=== PATIENT | male | born 1950 | race Caucasian/White ===

== ENCOUNTER 2017-10-19 11:51 | Day surgery (SDC) | payer MEDICARE, BC ==
[2017-10-09 15:52] VITALS: BMI 25.0
[~2017-10-19 11:51] MED LIST: DEXAMETHASONE SOD PHOSPHATE 10 MG/ML 1 ML VIAL IV ONE; HYDROmorphone 0.5 MG/0.5 ML SYRINGE IVP PRN; LACTATED RINGERS 1,000 ML IV SCH; LIDOCAINE 1% 20 ML VIAL (10MG/ML) FOR IV START INTRADERMA PRN; ONDANSETRON 4 MG/2 ML VIAL IVP ONE; ceFAZolin IN SWFI 2 GM/20 ML SYRINGE IVP ONE
[2017-10-19 12:17] VITALS: TEMP 97.6
[2017-10-19] MEDS ORDERED: MIDAZOLAM 2 MG/2 ML VIAL IV ONE (12:55)
[2017-10-19] MEDS ORDERED: fentaNYL (PF) 50 MCG/ML 2 ML AMP ONE (13:25)
[2017-10-19] MEDS ORDERED: PROPOFOL 10 MG/ML 20 ML VIAL IV ONE (13:25)
[2017-10-19] MEDS ORDERED: ROPIVACAINE 5 MG/ML 30 ML VIAL ONE (13:25)
[2017-10-19] MEDS ORDERED: LIDOCAINE 1% INJ 10MG/ML (20 ML MDV) ONE (13:25)
[2017-10-19] MEDS ORDERED: MIDAZOLAM 2 MG/2 ML VIAL ONE (13:25)
[2017-10-19] MEDS ORDERED: diphenhydrAMINE 50 MG/ML 1 ML VIAL ONE (13:25)
[2017-10-19] MEDS ORDERED: LIDOCAINE 2%-EPI 1:100,000 20 ML VIAL ONE (13:25)
[2017-10-19] MEDS ORDERED: CLINDAMYCIN 600 MG in SODIUM CHLORIDE 0.9% 1,000 ML IRRIGATION ONE (13:41)
[2017-10-19 15:00] VITALS: RESP 18
[2017-10-19 15:03] VITALS: BP 154/83; PULSE 100
--- NOTE | 2017-10-19 20:24 | OP ---
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 PROCEDURE: Elastic MP arthroplasties, MP joints, right index finger and right middle finger. Gross pathology size 5 fit best with the middle finger and a size 4 for the index finger. These were Servin type silastic implants. The patient was taken to the operative suite and given IV sedation and I did a digital block with a combination of Xylocaine and Marcaine both without epinephrine. The hand and arm were then prepped and draped in the usual manner. They were elevated and exsanguinated. Cuff was deflated to 250 mmHg. A longitudinal C shaped incision was made over the proximal MP joint. Skin flap was dissected off the peritenon and the extensor mechanism. Electrocautery was used for hemostasis. A longitudinal incision was made through the extensor tendon exposing the periosteum and the capsule of the joint. These were also opened and collateral ligaments were released. The joint was visualized and appropriate location for the resection of the head of the proximal phalanx was determined. This was then accomplished with an oscillating saw. Rongeur was used to smooth the surfaces. An awl was used to then open the intramedullary canals both proximal and middle phalanges. A Servin carlos was used initially to enlarge the intramedullary canals and then the appropriate size instruments were used from the arthroplasty set to prepare the canals for the prosthesis. Trial prosthesis was then used and the above size was noted to fit satisfactorily. The wound was then irrigated with antibiotic solution. The real prosthesis was inserted with no touch technique. The extensor mechanism was then closed with PDS suture. The finger was noted to be satisfactorily stable and had a satisfactory passive range of motion. The tourniquet was then released. Hemostasis was acquired with pressure and electrocautery. Skin closed with 5-0 Nylon suture. Soft bulky dressing was then applied. The patient was taken to the recovery room in satisfactory condition. MMODL / IJN: [id number] /
== END 2017-10-19 15:15 | disposition home or self-care (01) ==
LOC: OR 11:51
PROVIDERS: ATTEND Orthopaedic Surgery Hand Surgery
DX: M19.041 Primary osteoarthritis, right hand (principal); E78.5 Hyperlipidemia, unspecified; Z79.82 Long term (current) use of aspirin; Z79.899 Other long term (current) drug therapy; Z88.6 Allergy status to analgesic agent; Z88.5 Allergy status to narcotic agent; Z88.0 Allergy status to penicillin
CPT/HCPCS: 26531 ×2; C1713; J2250; J1200; J1100; J2405; J2001; J3010; J2795; J2704; J0690

== ENCOUNTER → 2018-10-04 | Outpatient (CLI) | payer MEDICARE, BC ==
[2018-10-04 11:29] LABS: HCT 45.3 % (39.0-53.0); HGB 14.7 gm/dL (13.0-17.5); MCH 32.4 pg (25.0-35.0); MCHC 32.3 g/dL (31.0-37.0); MCV 100.3 fL (80.0-100.0); Macrocytosis Slight; Mean Platelet Volume 8.1; Platelet Count 187 k/uL (150-450); RBC 4.52 m/uL (4.30-5.90); RDW 14.5 % (11.5-15.5)
[2018-10-04 14:16] LABS: Erythrocyte Sedimentation Rate 9 mm/hr (0-15)
[2018-10-04 17:51] LABS: C Reactive Protein <0.4 mg/dL (0.0-0.8); Uric Acid 7.3 mg/dL (3.7-8.7)
== END | disposition home or self-care (01) ==
LOC: LABWHC1 09:42
PROVIDERS: ATTEND Orthopaedic Surgery
DX: M79.672 Pain in left foot (principal); M10.9 Gout, unspecified
CPT/HCPCS: 36415; 83520; 84550; 85027; 85652; 86140

== ENCOUNTER 2018-11-29 06:24 | Day surgery (SDC) | payer MEDICARE, BC ==
[2018-11-26 08:52] VITALS: BMI 25.0
[~2018-11-29 06:24] MED LIST changes: -HYDROmorphone 0.5 MG/0.5 ML SYRINGE IVP PRN; -ONDANSETRON 4 MG/2 ML VIAL IVP ONE; +Pre Op ABX Message 1 EACH MISC MISCELLANE ONE; -ceFAZolin IN SWFI 2 GM/20 ML SYRINGE IVP ONE; +fentaNYL (PF) 50 MCG/ML 2 ML AMP IV PRN
[2018-11-29] MEDS ORDERED: ONDANSETRON 4 MG/2 ML VIAL IVP ONE (07:05)
[2018-11-29] MEDS: MIDAZOLAM 2 MG/2 ML VIAL IV PRN ×2 (07:09→07:15)
[2018-11-29] MEDS ORDERED: ROPIVACAINE 5 MG/ML 30 ML VIAL ONE (07:27)
[2018-11-29] MEDS ORDERED: LIDOCAINE 1% INJ 10MG/ML (20 ML MDV) ONE (07:27)
[2018-11-29] MEDS ORDERED: PROPOFOL 10 MG/ML 20 ML VIAL IV ONE (07:27)
[2018-11-29] MEDS ORDERED: DEXAMETHASONE SOD PHOSPHATE 4 MG/ML 1 ML VIAL ONE (07:27)
[2018-11-29] MEDS ORDERED: ceFAZolin 1,000 MG VIAL IVPB ONE (07:35)
[2018-11-29] MEDS ORDERED: LIDOCAINE 2% INJ 20 MG/ML SQ ONE ×2 (07:40)
[2018-11-29] MEDS ORDERED: BUPIVACAINE (PF) 0.5% 30 ML VIAL SQ ONE ×2 (07:40)
[2018-11-29] MEDS ORDERED: LACTATED RINGERS 1,000 ML IV ONE (08:21)
[2018-11-29 08:31] VITALS: TEMP 97.4
[2018-11-29 09:51] VITALS: BP 143/49; PULSE 66; RESP 18
--- NOTE | 2018-11-30 07:18 | P.ANPRN ---
Procedure Note - Anesthesia - Nerve Block Performed Left Infraclavicular Single Time Out Performed: Yes Date of Procedure: 11/29/18 Procedure Start Time: Procedure Stop Time: Location of Patient Procedure: PreOp Indication: Acute Post-Operative Pain, Requested by Surgeon Sedation Type: Sedate with meaningful contact maintained Preparation: Sterile Prep Position: Supine Needle Types: Pajunk Needle Gauge: 21 Ultrasound used to visualize needle placement: Yes Ultrasound used to observe medication spread: Yes Blood Aspirated: No Pain Paresthesia on Injection Noted: No Resistance on Injection: Normal Image Stored and Saved: Yes Events: Uneventful and Well Tolerated (ropi .5% 20cc plus dexamethasone 4mg)
--- NOTE | 2018-11-30 10:33 | OP ---
OPERATIVE REPORT DATE OF SURGERY: 11/29/2018 PREOPERATIVE DIAGNOSIS: MP joint osteoarthritis, left index finger. POSTOPERATIVE DIAGNOSIS: MP joint osteoarthritis, left index finger. PROCEDURE: Metacarpal pharyngeal joint silastic arthroplasty left index finger. ASSISTED LIVING NURSING DIRECTOR: Val Gonsales NP IMPLANT: Size 6 [employer] silastic prosthesis was used without grommets. PROCEDURE: A 68-year-old man was taken to the operative suite and given general anesthetic. I supplemented this with a local injection of combination Xylocaine and Marcaine both without epinephrine. The hand was prepped and draped in the usual manner. His arm was elevated, exsanguinated and cuff was inflated to 250 mmHg. A transverse incision was made over the metacarpal head of the left index finger. Dissection taken through skin and subcutaneous tissue under 4.5 loupe magnification. A longitudinal incision was made on the ulnar aspect of the MP joint and the ulnar intrinsics were released. The extensor mechanism was then reflected radially over the capsule, exposing the capsule where a longitudinal incision was made. A partial collateral ligament release was performed exposing the metacarpal head. An oscillating saw was then used to create an osteotomy. Most of the bone resection was kept distal to the collateral ligament insertion. An awl was then used to begin the intramedullary canal of both the proximal phalanx and the metacarpal. Subsequent larger rasps were then used to enlarge the canals until a size 6 prosthesis appeared to fit most satisfactorily. Trial prosthesis was inserted and noted to fit securely. The trial prosthesis was removed and the wound was thoroughly irrigated with antibiotic solution. The implant was then put into place with a no-touch technique. The radial collateral ligament was reinforced with the drill hole and suture through the radial aspect of the distal metacarpal. The capsule was then closed with 4- 0 PDS suture. The extensor mechanism fell into place naturally with no further reconstruction. The wound was thoroughly irrigated. Tourniquet was released. Hemostasis was acquired with electrocautery. Soft bulky dressing was then allowed which supported the index finger in a radial posture and allowed for early range of motion. The patient was then taken recovery room in satisfactory condition. MMODL / IJN: [id number] / MTDD
== END 2018-11-29 10:04 | disposition home or self-care (01) ==
LOC: OR 06:24
PROVIDERS: ATTEND Orthopaedic Surgery Hand Surgery
DX: M19.042 Primary osteoarthritis, left hand (principal); M19.041 Primary osteoarthritis, right hand; E78.5 Hyperlipidemia, unspecified; Z83.3 Family history of diabetes mellitus; Z82.49 Family history of ischemic heart disease and other diseases of the circulatory system; Z87.891 Personal history of nicotine dependence; Z90.49 Acquired absence of other specified parts of digestive tract; Z79.82 Long term (current) use of aspirin; Z79.899 Other long term (current) drug therapy; Z88.6 Allergy status to analgesic agent; Z88.5 Allergy status to narcotic agent; Z88.0 Allergy status to penicillin
CPT/HCPCS: 26536; 64415; 76942; J2001 ×2; J2250; J1100 ×2; J2405; J0690; J2795; J2704; 64413

== ENCOUNTER 2020-06-29 07:42 | Day surgery (SDC) | payer MEDICARE ==
[2020-06-27 11:14] VITALS: BMI 19.9
[~2020-06-29 07:42] MED LIST changes: -DEXAMETHASONE SOD PHOSPHATE 10 MG/ML 1 ML VIAL IV ONE; +DEXAMETHASONE SOD PHOSPHATE 4 MG/ML 1 ML VIAL IV ONE; -LIDOCAINE 1% 20 ML VIAL (10MG/ML) FOR IV START INTRADERMA PRN; +MIDAZOLAM 2 MG/2 ML VIAL IV PRN; +ONDANSETRON 4 MG/2 ML VIAL IVP ONE; -fentaNYL (PF) 50 MCG/ML 2 ML AMP IV PRN
[2020-06-29] MEDS ORDERED: fentaNYL (PF) 50 MCG/ML 2 ML AMP IV ONE (08:37)
[2020-06-29] MEDS ORDERED: MIDAZOLAM 2 MG/2 ML VIAL IV ONE (08:37)
--- NOTE | 2020-06-29 08:52 | P.ANPRN ---
Procedure Note - Anesthesia - Nerve Block Performed Right Popliteal Single Time Out Performed: Yes Date of Procedure: 06/29/20 Procedure Start Time: 08:36 Procedure Stop Time: 08:42 Location of Patient: PreOp Indication: Requested by Surgeon Specifically requested for management of pain by DrFidelia: Lincoln Tolliver Sedation Type: Sedate with meaningful contact maintained Preparation: Sterile Prep Position: Left Lateral Needle Types: Pajunk Needle Gauge: 21 Ultrasound used to visualize needle placement: Yes Ultrasound used to observe medication spread: Yes Injectate: 0.5% Ropivacaine (see comment for volume) (15 ml plus 0.9%NS 5 ml plus dexamethason 4 mg) Blood Aspirated: No Pain Paresthesia on Injection Noted: No Resistance on Injection: Normal Image Stored and Saved: Yes Events: Uneventful and Well Tolerated
--- NOTE | 2020-06-29 08:54 | P.ANPRN ---
Procedure Note - Anesthesia - Nerve Block Performed Right Adductor Canal Single Time Out Performed: Yes Date of Procedure: 06/29/20 Procedure Start Time: 08:43 Procedure Stop Time: 08:50 Location of Patient: PreOp Indication: Requested by Surgeon Specifically requested for management of pain by DrFidelia: Lincoln Tolliver Sedation Type: Sedate with meaningful contact maintained Preparation: Sterile Prep Position: Supine Needle Types: Pajunk Needle Gauge: 21 Ultrasound used to visualize needle placement: Yes Ultrasound used to observe medication spread: Yes Injectate: 0.5% Ropivacaine (see comment for volume) (15 ml plus 0,9% NS 5 ml plus dexamethason 4 mg) Blood Aspirated: No Pain Paresthesia on Injection Noted: No Resistance on Injection: Normal Image Stored and Saved: Yes Events: Uneventful and Well Tolerated
[2020-06-29] MEDS ORDERED: LIDOCAINE 1% INJ 10MG/ML (20 ML MDV) ONE (09:05)
[2020-06-29] MEDS ORDERED: DEXAMETHASONE SOD PHOSPHATE 4 MG/ML 1 ML VIAL ONE (09:05)
[2020-06-29] MEDS ORDERED: fentaNYL (PF) 50 MCG/ML 2 ML AMP ONE (09:05)
[2020-06-29] MEDS ORDERED: ePHEDrine SULFATE/0.9% NACL/PF 50 MG/5 ML SYRINGE IV ONE (09:05)
[2020-06-29] MEDS ORDERED: PROPOFOL 10 MG/ML 20 ML VIAL IV ONE (09:05)
[2020-06-29] MEDS ORDERED: ROPIVACAINE 5 MG/ML 30 ML VIAL ONE (09:05)
[2020-06-29] MEDS ORDERED: MIDAZOLAM 2 MG/2 ML VIAL ONE (09:05)
[2020-06-29] MEDS ORDERED: SODIUM CHLORIDE 0.9% 100 ML with CLINDAMYCIN 600 MG IV ONE ×2 (09:20)
--- NOTE | 2020-06-29 11:27 | FL ---
Fluoroscopy History: SCREW PLACEMENT 24 SEC FL
[2020-06-29 11:40] VITALS: TEMP 97.6
[2020-06-29] MEDS: HYDROmorphone 0.5 MG/0.5 ML SYRINGE IVP PRN ×2 (11:40→11:48)
[2020-06-29] MEDS ORDERED: LACTATED RINGERS 1,000 ML IV ONE (11:52)
[2020-06-29 12:05] VITALS: RESP 16
[2020-06-29 12:53] VITALS: BP 160/89; PULSE 89
--- NOTE | 2020-07-05 09:58 | OP ---
OPERATIVE REPORT DATE OF SURGERY: June 29, 2020. PREOPERATIVE DIAGNOSES: 1. Hallux valgus, right foot. 2. Tailor's bunion, right foot. POSTOPERATIVE DIAGNOSES: 1. Hallux valgus, right foot. 2. Tailor's bunion, right foot. PROCEDURE: 1. Modified Lapidus, right foot. 2. Partial excision 5th metatarsal head, right foot. SURGEON: Lincoln Tolliver DPM. ANESTHESIA: General with preoperative nerve block. HEMOSTASIS: Right mid calf tourniquet at 250 mmHg. ESTIMATED BLOOD LOSS: Minimal. MATERIALS: Lapiplasty dorsal straight plate and medial U plate with associated 12 and 14 mm locking screws. INJECTABLES: None. SPECIMENS: None. COMPLICATIONS: None. OPERATIVE REPORT: Operative report is as follows: Prior to the patient being brought to the operating room, Anesthesia administered a nerve block in the right lower extremity under ultrasonic guidance and mild sedation. The patient was then brought into the operating room, placed on the table in supine position. Timeout was taken to confirm correct patient identifiers, correct site of surgery and correct procedure. When the room was in agreement, the patient was placed under general anesthetic. A well-padded tourniquet was placed on the right midcalf and then the right leg was prepped and draped in usual manner. The right leg was exsanguinated. The tourniquet inflated to 250 mmHg. Attention was first directed over the fifth metatarsophalangeal joint where a dorsal lateral incision was made between the long extensor tendon and neurovascular structures. It was deepened down to the subcutaneous tissue careful to identify, avoid and retract any neurovascular structures and cauterize any bleeding vessels. Dissection was then continued bluntly down to the level of the capsule which was incised lateral to the extensor tendon reflected to expose the lateral aspect of the fifth metatarsal head. A sagittal saw was used to resect the prominence on the lateral side of the fifth metatarsal head and then all the roughened edges of bone were smooth. There was some thickening of the capsule between the subcu and the joint and that was all thinned and then the wound was irrigated thoroughly with antibiotic saline. The capsule was closed with 2-0 Vicryl. Subcutaneous closure done with 4-0 Monocryl. Skin closure done with 3-0 Stratafix in a running subcuticular manner. Then, attention was directed at the medial aspect of the first metatarsophalangeal joint where a linear incision was made between the dorsal and plantar neurovascular structures, deepened down to the subcutaneous tissue careful to identify, avoid and retract any neurovascular structures and cauterize any bleeding vessels. Dissection was then carried down to the level of joint capsule. Two semi-elliptical converging incisions were made at the medial aspect of the joint capsule with the interposed section of capsule removed which would help facilitate sesamoid correction upon closure. The capsule was reflected off the medial aspect of the first metatarsal head. A sagittal saw was then used to resect the enlargement of the first metatarsal head on the medial aspect and then all the roughened edges were planed and smoothed and then the sesamoid apparatus was distracted plantarly. Lateral sesamoid collateral ligament transected and lateral capsulotomy performed. Attention was then directed on the dorsal aspect of the first tarsometatarsal joint where a 6 cm incision was made between the neurovascular structures and the extensor hallucis longus. This was deepened down to the subcutaneous tissue careful to identify, avoid and retract any neurovascular structures and cauterize any bleeding vessels. Blunt dissection was then carried down to the periosteum and capsule over the first tarsometatarsal joint. An incision was made medial to the long extensor tendon and then subperiosteal dissection was performed to expose the first tarsometatarsal joint and create a pocket on the lateral side of the base of the first metatarsal. A sagittal saw was inserted to plane the joint surfaces and allow for better motion to correct the frontal plane deformity. Wire was then placed in the base of the first metatarsal and used as a joystick to de- rotate the deformity. Another small incision was made on the lateral aspect of the second metatarsal that was deepened so that the lateral side of the metatarsal was exposed. The fulcrum was then placed in the pocket created on the base of the first metatarsal and then the reduction clamp was placed on the lateral side of the second metatarsal shaft as well as the medial flare of the base of the first metatarsal and then the clamp was advanced to correct the intermetatarsal angle while simultaneously de- rotating the frontal plane deformity with a joystick. Under fluoroscopic visualization, another correction was advanced until completed. Visually there is correction of the intermetatarsal angle and proper alignment of the sesamoids on fluoroscopy and direct visualization showed gapping of the medial first tarsometatarsal joint, which is appropriate. Then the joint seeker was inserted. The cut guide inserted over the joint seeker and then cut guide was aligned on x-ray and then fixated with K- wires so that that did not move once it was placed properly. The saw was then inserted into the cut guide and the joint surfaces of the base of the first metatarsal and distal surface of the medial cuneiform were transected. The locking wire was removed leaving the other [address] The cut guide was removed. The distractor was then inserted and opened so that the cut pieces of bone could be completely removed. Once that was completed, the wound was irrigated thoroughly with antibiotic saline and then a 2 mm drill bit was used to fenestrate both the surfaces. Then with the first MPJ dorsiflexed, the distractor was then converted to compressor and then the arthrodesis was then compressed. Visually, there appeared to be good bony contact throughout and on fluoroscopy, there was good bony contact throughout and on the lateral surface there was no abnormal gapping on the plantar side. A threaded olive wire was then used to fixate the arthrodesis site. Then the medial plate was positioned and temporarily fixated and checked under fluoroscopy for proper positioning. Once properly aligned, the drill holes were made through the guide and then locking screws were then placed. The olive wire was then repositioned to allow for further compression and also to avoid the dorsal plate and then the dorsal straight plate was positioned and adjusted directly under fluoroscopy until it was in proper alignment and then temporarily fixated. The drill holes were then made through the guides and locking screws placed through the dorsal straight plate. At that point, the distractor compressor was removed as well as the pins and the threaded olive wire. Final fluoroscopic images showed good bony contact at the arthrodesis site with correction of the intermetatarsal angle and proper alignment of the sesamoid apparatus. The wounds were then thoroughly irrigated with antibiotic saline. The dorsal wound was closed first with 2-0 Vicryl for the deep tissues, subcutaneous closure done with 4-0 Monocryl, skin closure done with 3-0 Stratafix in a running subcuticular manner and then with the great toe held in a corrected position, the first MPJ joint capsule was closed with 0 Vicryl, subcutaneous closure done with 4-0 Monocryl, skin closure done with 3-0 Stratafix in a running subcuticular manner. Dermal glue was applied to all the incisions including the small incision of the second metatarsal and then Steri-Strips were placed across the incisions and a dry sterile dressing. The tourniquet was released and capillary refill returned to all digits on the right foot. The patient was placed in a fracture boot with the ankle in neutral position. Anesthesia was reversed. He was taken to recovery with vital signs stable. MMODL / IJN: [id number] / MIKE
== END 2020-06-29 13:33 | disposition home or self-care (01) ==
LOC: OR 07:42
PROVIDERS: ATTEND Podiatrist
DX: M21.621 Bunionette of right foot (principal); M20.11 Hallux valgus (acquired), right foot; M19.90 Unspecified osteoarthritis, unspecified site; E78.5 Hyperlipidemia, unspecified; Z79.899 Other long term (current) drug therapy; Z88.6 Allergy status to analgesic agent; Z88.0 Allergy status to penicillin; Z83.3 Family history of diabetes mellitus; Z82.49 Family history of ischemic heart disease and other diseases of the circulatory system; Z87.891 Personal history of nicotine dependence
CPT/HCPCS: 64447; 64415; 76942; 73620; 28297; 28104; C1713; J2250; J1100; J2405; J2001; J3010; J2795; J2704; J1170

== ENCOUNTER → 2020-12-14 | Outpatient (CLI) | payer MEDICARE ==
[2020-12-14 09:22] LABS: Appearance,Urine Clear (Clear); Bilirubin,Urine Negative (Negative); Blood,Urine Negative (Negative); Color,Urine Yellow; Glucose,Urine (UA) Negative (Negative); Ketones,Urine Negative (Negative); Leukocyte Esterase,Urine Negative (Negative); Nitrite,Urine Negative (Negative); PH, Urine 6.5 (5.0-8.0); Protein,Urine Negative (Negative); Specific Gravity,Urine 1.007 (1.001-1.035); Urobilinogen,Urine <2.0 mg/dL (<2.0)
[2020-12-14 09:23] LABS: HCT 42.3 % (39.0-53.0); HGB 13.9 gm/dL (13.0-17.5); MCH 33.7 pg (25.0-35.0); MCHC 32.8 g/dL (31.0-37.0); MCV 102.8 fL (80.0-100.0); Macrocytosis Slight; Mean Platelet Volume 8.1; Platelet Count 199 k/uL (150-450); RBC 4.12 m/uL (4.30-5.90); RDW 12.7 % (11.5-15.5); WBC 2.7 k/uL (3.8-10.6)
[2020-12-14 09:41] LABS: African American GFR (CKD) >90 (>60 ml/min/1.73 sqM); Anion Gap 7 mmol/L; Blood Urea Nitrogen 15 mg/dL (9-20); Calcium 9.3 mg/dL (8.4-10.2); Carbon Dioxide 27 mmol/L (22-30); Chloride 105 mmol/L (98-107); Glucose 105 mg/dL (74-99); Non-African American GFR(CKD) 83 (>60 ml/min/1.73 sqM); Potassium 4.2 mmol/L (3.5-5.1); Sodium 139 mmol/L (137-145)
[2020-12-14 09:52] LABS: INR 0.9 (<1.2); Partial Thromboplastin Time 23.6 sec (22.0-30.0); Prothrombin Time 9.9 sec (9.0-12.0)
--- NOTE | 2020-12-14 09:56 | XR ---
EXAMINATION TYPE: XR chest 2V DATE OF EXAM: 12/14/2020 COMPARISON: NONE HISTORY: Shortness of breath TECHNIQUE: Frontal and lateral views of the chest are obtained. FINDINGS: Scattered senescent parenchymal changes noted. Hyperinflation compatible with COPD. No evidence for infiltrate. No evidence for atelectasis. Heart size is stable. Mediastinal structures are stable and grossly unremarkable. No evidence for hilar prominence. Degenerative changes dorsal spine. IMPRESSION: 1. No evidence for acute pulmonary disease.
[2020-12-14 13:48] LABS: Band Neutrophils % 1 %; Eosinophils # (M) 0.16 k/uL (0-0.7); Lymphocytes # (M) 0.97 k/uL (1.0-4.8); Monocytes # (M) 0.41 k/uL (0-1.0); Neutrophils % (M) 42 %; Nucleated Red Blood Cells 0 /100 WBC (0-0); Total Cells Counted 100
== END | disposition home or self-care (01) ==
LOC: LABPAT 08:28
PROVIDERS: ATTEND Orthopaedic Surgery Orthopaedic Surgery of the Spine
DX: Z01.818 Encounter for other preprocedural examination (principal); M48.00 Spinal stenosis, site unspecified; M54.10 Radiculopathy, site unspecified
CPT/HCPCS: 36415; 71046; 80048; 81003; 85025; 85610; 85730; 87070

== ENCOUNTER 2021-04-01 11:27 | Day surgery (SDC) | payer MEDICARE ==
[2021-03-27 10:49] VITALS: BMI 23.7
[~2021-04-01 11:27] MED LIST changes: -DEXAMETHASONE SOD PHOSPHATE 4 MG/ML 1 ML VIAL IV ONE; +LIDOCAINE 1% (10MG/ML) FOR IV START INTRADERMA PRN; -MIDAZOLAM 2 MG/2 ML VIAL IV PRN; -ONDANSETRON 4 MG/2 ML VIAL IVP ONE; -Pre Op ABX Message 1 EACH MISC MISCELLANE ONE
[2021-04-01 11:57] VITALS: TEMP 97.8
[2021-04-01] MEDS ORDERED: LACTATED RINGERS 1,000 ML IV ONE (11:57)
[2021-04-01] MEDS ORDERED: LIDOCAINE 1% INJ 10MG/ML (20 ML MDV) ONE (12:21)
[2021-04-01] MEDS ORDERED: PROPOFOL 10 MG/ML 20 ML VIAL IV ONE (12:21)
[2021-04-01] MEDS ORDERED: IV FLUID CONTINUATION 1,000 ML IV ONE (12:40)
[2021-04-01 12:55] LABS: HCT 42.8 % (39.0-53.0); HGB 14.3 gm/dL (13.0-17.5); MCH 34.6 pg (25.0-35.0); MCHC 33.4 g/dL (31.0-37.0); MCV 103.7 fL (80.0-100.0); Macrocytosis Slight; Mean Platelet Volume 8.9; Platelet Count 149 k/uL (150-450); RBC 4.13 m/uL (4.30-5.90); RDW 13.3 % (11.5-15.5); WBC 2.1 k/uL (3.8-10.6)
[2021-04-01 13:00] VITALS: RESP 18
--- NOTE | 2021-04-01 13:06 | PCN ---
PROCEDURE NOTE DATE OF SERVICE: April 01, 2021. PROCEDURE: Bone marrow aspirate and biopsy. INDICATION: Pancytopenia. DESCRIPTION OF PROCEDURE: After obtaining informed consent from the patient, the procedure was performed in the endoscopy suite under general anesthesia performed by anesthesia team. The patient was put in left lateral decubitus position. The right posterior superior iliac crest was localized. Skin was prepped with ChloraPrep. All sterile procedures were followed. 2 mL of 2% Xylocaine was used for local anesthetic. Monoject needle was inserted. 15 mL aspirate was obtained and about 1 cm core biopsy was obtained without any difficulties. Pressure applied afterwards. There was negligible blood loss. The patient tolerated the procedure very well. There was no immediate complication. MMODL / IJN: [id number] /
[2021-04-01 13:17] VITALS: BP 145/78; PULSE 80
[2021-04-01 13:28] LABS: Eosinophils # (M) 0.06 k/uL (0-0.7); Monocytes # (M) 0.42 k/uL (0-1.0); Neutrophils # (M) 0.71 k/uL (1.3-7.7); Neutrophils % (M) 34 %; Nucleated Red Blood Cells 0 /100 WBC (0-0); Total Cells Counted 100
== END 2021-04-01 13:25 | disposition home or self-care (01) ==
LOC: OR 11:27
PROVIDERS: ATTEND Internal Medicine Hematology & Oncology
DX: D70.8 Other neutropenia (principal); D61.818 Other pancytopenia; E78.5 Hyperlipidemia, unspecified; Z98.890 Other specified postprocedural states; Z80.8 Family history of malignant neoplasm of other organs or systems; Z83.2 Family history of diseases of the blood and blood-forming organs and certain disorders involving the immune mechanism; Z90.49 Acquired absence of other specified parts of digestive tract; Z79.899 Other long term (current) drug therapy; Z88.0 Allergy status to penicillin; Z91.09 Other allergy status, other than to drugs and biological substances
CPT/HCPCS: 85025; 85045; 38222; J2001; J2704

== ENCOUNTER → 2021-05-31 | Outpatient (CLI) | payer MEDICARE ==
--- NOTE | 2021-05-31 09:28 | XR ---
EXAMINATION TYPE: XR chest 2V DATE OF EXAM: 05/31/2021 COMPARISON: Chest x-ray December 14, 2020 HISTORY: Presurgical TECHNIQUE: Frontal and lateral views of the chest are obtained. FINDINGS: There is no suspicious focal air space opacity, pleural effusion, or pneumothorax seen. T he cardiac silhouette size is stable and within normal limits with atherosclerotic change in the aort ic knob. The osseous structures are intact. IMPRESSION: No acute process. No significant change from prior.
[2021-05-31 09:43] LABS: Appearance,Urine Clear (Clear); Bilirubin,Urine Negative (Negative); Blood,Urine Negative (Negative); Color,Urine Yellow; Glucose,Urine (UA) Negative (Negative); Ketones,Urine Negative (Negative); Leukocyte Esterase,Urine Negative (Negative); Nitrite,Urine Negative (Negative); Protein,Urine Negative (Negative); Specific Gravity,Urine 1.015 (1.001-1.035); Urobilinogen,Urine <2.0 mg/dL (<2.0)
[2021-05-31 10:05] LABS: INR 0.9 (<1.2); Partial Thromboplastin Time 24.8 sec (22.0-30.0); Prothrombin Time 10.2 sec (9.0-12.0)
[2021-05-31 14:18] LABS: HCT 39.6 % (39.6-50.0); HGB 12.7 g/dL (13.0-17.0); MCH 33.6 pg (27.0-32.0); MCHC 32.1 g/dL (32.0-37.0); MCV 104.8 fL (80.0-97.0); Mean Platelet Volume 11.5 fL (9.5-12.2); NRBC Per 100 WBC 0 /100 WBCS (0.0-0.0); Platelet Count 124 X 10*3/uL (140-440); RBC 3.78 X 10*6/uL (4.40-5.60); RDW 13.6 % (11.5-14.5)
[2021-05-31 14:36] LABS: African American GFR (CKD) 100.3 (60.0-200.0); Anion Gap 10.6 mmol/L (10.00-18.00); BUN/Creat Ratio 15.83 Ratio (12.00-20.00); Blood Urea Nitrogen 13.9 mg/dL (9.0-27.0); Calcium 8.4 mg/dL (8.7-10.3); Carbon Dioxide 24.5 mmol/L (20.0-27.5); Non-African American GFR(CKD) 86.5 (60.0-200.0); Potassium 4.1 mmol/L (3.5-5.5)
[2021-05-31 14:41] LABS: Basophils # (A) 0.01 X 10*3/uL (0.00-0.10); Basophils % (A) 0.5 %; Eosinophils # (A) 0.03 X 10*3/uL (0.04-0.35); Eosinophils % (A) 1.4 %; Immature Grans, Automated 0.5 %; Lymphocytes # (A) 1.03 X 10*3/uL (0.90-5.00); Lymphocytes % (A) 46.8 %; Monocytes % (A) 27.3 %; Neutrophils # (A) 0.52 X 10*3/uL (1.80-7.70); Neutrophils % (A) 23.5 %; RBC Morphology NORMAL
== END | disposition home or self-care (01) ==
LOC: LABPAT 08:51
PROVIDERS: ATTEND Orthopaedic Surgery Orthopaedic Surgery of the Spine
DX: Z01.812 Encounter for preprocedural laboratory examination (principal); M48.061 Spinal stenosis, lumbar region without neurogenic claudication
CPT/HCPCS: 36415; 71046; 80048; 81003; 85025; 85610; 85730; 87070

== ENCOUNTER 2021-06-10 06:17 | Inpatient (IN) | payer MEDICARE ==
[2021-06-04 10:18] VITALS: BMI 23.7
[~2021-06-10 06:17] MED LIST changes: -LACTATED RINGERS 1,000 ML IV SCH; +ONDANSETRON 4 MG/2 ML VIAL IVP ONE; +ceFAZolin 1,000 MG in SODIUM CHLORIDE 0.9% IRRIGATIO 1,000 ML IRRIGATION PRN
[2021-06-10] MEDS: LACTATED RINGERS 1,000 ML IV SCH (07:09)
[2021-06-10] MEDS: MIDAZOLAM 2 MG/2 ML VIAL IVP ONE ×2 (07:26→07:30)
[2021-06-10] MEDS ORDERED: HEPARIN SODIUM,PORCINE 10,000 UNIT/ML 1 ML VIAL ONE (07:39)
[2021-06-10] MEDS ORDERED: fentaNYL (PF) 50 MCG/ML 2 ML AMP ONE (07:39)
[2021-06-10] MEDS ORDERED: ceFAZolin 1,000 MG VIAL ONE (07:39)
[2021-06-10] MEDS ORDERED: ROCURONIUM 10 MG/ML (5 ML VIAL) IV ONE (07:39)
[2021-06-10] MEDS ORDERED: SUCCINYLCHOLINE CHLORIDE 100 MG/5 ML SYR IV ONE (07:39)
[2021-06-10] MEDS ORDERED: NEOSTIGMINE 1 MG/ML 10 ML VIAL ONE (07:39)
[2021-06-10] MEDS ORDERED: HYDROmorphone (PF) 1 MG/ML ONE (07:39)
[2021-06-10] MEDS ORDERED: PROPOFOL 10 MG/ML 20 ML VIAL IV ONE (07:39)
[2021-06-10] MEDS ORDERED: GLYCOPYRROLATE 0.2 MG/ML 2 ML VIAL ONE (07:39)
[2021-06-10] MEDS ORDERED: SODIUM CHLORIDE 0.9% IRRIG 1,000 ML BTL IRRIGATION ONE (07:39)
[2021-06-10] MEDS ORDERED: LIDOCAINE 1% INJ 10MG/ML (20 ML MDV) ONE (07:39)
[2021-06-10] MEDS ORDERED: PHENYLEPHRINE-0.9% NACL SYG 1,000 MCG/10 ML SYRINGE ONE (07:39)
[2021-06-10] MEDS ORDERED: SODIUM CHLORIDE 0.9% 100 ML BAG ONE (07:39)
[2021-06-10] MEDS ORDERED: BUPIVACAIN-EPI 0.25%-1:200,000 30 ML VIAL SQ ONE ×3 (08:18→12:07)
[2021-06-10] MEDS ORDERED: LACTATED RINGERS 1,000 ML IV ONE ×2 (09:05→11:01)
[2021-06-10] MEDS ORDERED: GELATIN SPONGE,ABSORB (LARGE) 1 EACH SPONGE TOPICAL ONE (09:05)
[2021-06-10] MEDS ORDERED: THROMBIN (RECOMBINANT) 5,000 UNIT VIAL TOPICAL ONE (09:05)
[2021-06-10] MEDS ORDERED: ONDANSETRON 4 MG/2 ML VIAL IVP PRN (12:15)
[2021-06-10] MEDS ORDERED: BENZOCAINE/MENTHOL LOZENG 1 EACH LOZENGE MUCOUS MEM PRN (12:15)
[2021-06-10] MEDS ORDERED: HYDROmorphone 0.5 MG/0.5 ML SYRINGE IVP PRN (12:15)
[2021-06-10] MEDS ORDERED: MAGNESIUM HYDROXIDE 2,400 MG/10 ML CUP PO PRN (12:15)
--- NOTE | 2021-06-10 12:23 | P.OP ---
Date of Procedure: 06/10/21 Preoperative Diagnosis: Degenerative spondylolisthesis, degenerative scoliosis, spinal stenosis L3 4 L4 5, low back pain, degenerative disease, lower extremity radiculopathy, lower extremity weakness, facet cyst Postoperative Diagnosis: Same Anesthesia: GETA Pathology: none sent Condition: stable Disposition: PACU Description of Procedure: DESCRIPTION OF PROCEDURE(S): BRIEF OPERATIVE NOTE Preoperative Diagnosis: Spondylolisthesis , spinal stenosis , lower extremity radiculopathy, lower extremity weakness, neurogenic claudication, low back pain, degenerative disc disease Postoperative Diagnosis: Same Procedure: Laminectomy and decompression L3 [address] navigation aided Minimally invasive Posterior lateral decompression and facet fusion L3 4 L4 5 Minimally invasive Transforaminal lumbar interbody fusion for a 360 fusion L3 4 L4 5 Discectomy for decompression L3 4 L4 5 Placement of interbody graft L3 4 L4 5 Use of computer navigation for fusion L3 4 and 5 Local autogenous bone grafting Aspiration of bone marrow from the vertebral body pedicle of 300 and right Use of bone graft extenders Surgeon: Dr. Herr Cardroom Plastic Card Grader: Lenny PUENTES who is present throughout the entire the case per renuka during positioning, dissection, exposure, visualization, and all crucial elements of the case as well as closure. Anesthesia: General anesthesia per Dr. Garduno Estimated blood loss: Approximately 400 mL with 188 given back through [employer] Complications: None apparent Components implanted: K2M minimally invasive Harrison pedicle screw system withscrews measuring 6.5 mm in diameter to rods one Huntington interbody cage and 1Aleutian interbody cage with 10 mL of osteo amp bio4 bone graft substitute and 30 mL of the BX bone fibers to supplement the local autogenous bone graft and bone marrow aspirate Disposition: To recovery room in good stable condition. OPERATIVE INDICATIONS The patient has had severe issues at their lower extremity in her lower back over the past several years with significant worsening over the past several months. Over the past few months the patient had pain at their back and their lower extremities. He's been having worsening of his symptoms despite conservative care The patient is having severe radicular symptoms at their lower extremity with weakness. The patient is having significant pain in their back. They are unable to obtain any comfort. His found have degenerative scoliosis with degenerative degenerative listhesis and severe stenosis L3 4 L4 5 which correlated well with his low back and lower extremity symptoms We did aggressive conservative treatment with medications therapy and interventional pain management however thery were not having any relief. The patient also showed evidence of a listhesis with some dynamic instability. The patient has been through conservative treatment. We discussed various treatment options including surgery, and the patient wishes to proceed with surgery We discussed the risk, patient's alternatives and benefits of surgery including but not limited to, risk of bleeding risk of infection, risk of need for further surgery, risk of decreased, loss of motion, muscle function, malunion nonunion, hardware failure, nerve damage, paralysis, heart attack, blindness and . They understood issues with the current pandemic and the possibility of exposure. OPERATIVE SUMMARY After discussing all the risks, patient alternatives and benefits at length, the patient elected to proceed with surgical intervention, signed informed consent, and presented for their procedure. The patient was seen and examined in the preoperative holding area and the surgical site was marked. The patient was given antibiotics and brought to the operating room. The patient was sedated and intubated by anesthesia in standard fashion. The patient was positioned on to the operating room table in a prone position on the appropriate frame which was well-padded and well molded. We were careful to pad any bony prominences and pressure points. We were careful to maintain the patient's cervical spine and good neutral alignment and position throughout. The patient was prepped and draped in a normal standard fashion. An appropriate timeout and keystone protocol performed. We were able to proceed with the surgery. The local wound area was infiltrated with local anesthetic. Over the right iliac crest I was able to make small stab incisions and establish a guidepin screw fixation to the iliac crest 2. I was able place the computer referencing device over the guidepins to establish an appropriate reference point for the Ziem CT navigation. We then were able to place patient in an appropriate drape and do a navigation spin for visualization and 3-D reconstruction of the lumbar spine. I was able utilize C-arm guidance and navigation to establish appropriate position over the pedicles bilaterally at the appropriate levels at L3 4 and 5 . With the appropriate levels confirmed was able to make small incisions over the appropriate pedicle sites bilaterally. Utilizing the computer navigation device I was able to establish bony landmarks at the right iliac crest for a bony reference point for the navigation device. I was able to establish a Jamshidi needle over the lateral aspect of the pedicle and advanced the trocar into the pedicle being careful not to breech superiorly inferiorly medially or laterally using computer navigation device. Position was confirmed regularly with AP and lateral images on C-arm and with the computer navigation device at the appropriate levels bilaterally. I was able to establish the trocar into the pedicle appropriately into the posterior aspect of the vertebral body bilaterally at the appropriate levels at L3 4 and 5. This was done at each of the pedicle positions and each of the vertebrae. At the superior vertebrae I was able to take approximately 25 mL of bone aspiration for use later in the case to supplement the allograft and autog raft bone. I was able place the guidewire into the trocar and into the vertebral body appropriately under C-arm guidance. Dissection was taken down over the wire to the appropriate starting position for the screw placed. The appropriate length screw was chosen, threaded over the guidewire and screwed appropriately into the pedicle and vertebral body under C-arm guidance in excellent alignment and position with good bony purchase. This is done at each of the screw sites at the appropriate levels at L3 4 L4 5. With the screws intact I extended the incision to connect the screw hole sites on the most symptomatic side on the right. I dissected down to establish access over the pars and lamina to the base of the spinous process. I was able to expose the facet joint. The capsule the facet was taken down and showed some facet arthrosis at the joint. I was able to use a combination of curettes and Kerrison rongeurs and a high-speed drill to take down the facet joint and do a facetectomy. I was able get excellent foraminal decompression and central decompression with undermining across midline to perform a laminectomy centrally and contralaterally. As able to remove a facet cyst at L4 5 from the left epidural space as well as from the right at L3 4. As able get good central decompression. The ligamentum flavum was taken down to further decompress centrally and at bilateral neural foramen. I was able to expose the disc space and visualize the traversing nerve root. Note was made of some disc protrusion and disc herniation that was abutting the traversing nerve root at the level causing further compression of the nerve root. I was able to establish a annulotomy at the appropriate level protecting soft tissue and neural structures. Note was made of some disc desiccation at the disc. I performed a complete discectomy with accommodation of curettes and rasps and scrapers. I was able get good endplate preparation at the disc space. I sized for the appropriate size interbody spacer protecting the soft tissue and neural structures. The wound was copiously irrigated and suctioned dry. There is no evidence of any dural tear or leak. I was able to pack the disc space with local autogenous bone graft as well as a small amount of bone graft which was also placed into the interbody cage itself. Protecting the soft tissue structures and neural structures I was able place the interbody cage in good alignment and good position with good fit and fill at the interbody space. Position was confirmed with C-arm guidance. Good hemostasis maintained. There is no evidence of any dural tear or leak. The wound was irrigated and suctioned dry. With the hardware intact, intraoperative C-arm imaging was again taken which showed good alignment and position of the hardware at the appropriate levels. We were then able to measure, contour and place the rods and appropriate hardware bilaterally. I was able to place capcrews, tighten them down, and torque them with the torque screwdriver appropriately. With this intact I was able to place the local autogenous bone graft with additional bone graft enhancer as necessary into the posterior lateral gutters over the decorticated transverse processes and facet joints on the contralateral side. The remainder of the bone graft was placed over the facet joint on the contralateral side after taking down the facet joint capsule. With the bone graft intact, a stable construct, and good decompression at the appropriate levels, we were able to proceed with closure. Good hemostasis was maintained. There is no evidence of dural tear or leak. The fascia was closed for a watertight closure. he subcuticular tissue was closed with absorbable suture. The wound was cleaned and dried and dressed with the appropriate dressing. The drapes were broken down. The patient was gently rolled back onto their hospital bed being careful to maintain their cervical spine and good neutral alignment and position. They were woken up by anesthesia, extubated, and brought to the recovery room in good stable condition. The patient will be admitted to the hospital for appropriate postoperative care, medical management and monitoring. We will continue to follow them closely about the postoperative course.
--- NOTE | 2021-06-10 12:31 | FL ---
Fluoroscopy HISTORY: Lumbar fusion 24 seconds fluoroscopy time supplied to the referring clinician. 2 intraoperative C-arm images docum ent the procedure. See dictated report from orthopedic surgery.
[2021-06-10] MEDS: HYDROmorphone 0.5 MG/0.5 ML SYRINGE IVP PRN ×2 (12:36→12:49)
[2021-06-10] MEDS: SODIUM CHLORIDE 0.9% 1,000 ML IV SCH (13:50)
[2021-06-10] MEDS: HYDROmorphone 1 MG/ML 1 ML SYRINGE IVP PRN ×2 (13:53→17:33)
--- NOTE | 2021-06-10 18:37 | P.CONS ---
History of Present Illness - Reason for Consult Consult date: 06/10/21 leukopenia Requesting physician: Watson Herr - Chief Complaint elective surgery - History of Present Illness Mr. Pollock is a very pleasant 71-year-old patient of Dr. Carey who was referred because of leukopenia found during routine blood work prior to a scheduled back surgery. 12/15/19 one CBC revealed WBC of 2.7, ANC 1.1, hemoglobin 13.3 with an MCV of 102.8, platelets 199,000. Previous CBCs 05/27 revealed a similar finding. CBC is from 2018 at [facility] revealed a normal CBC. A workup January 2021, negative, no M protein, no deficiency. 04/01/21 bone marrow biopsy revealed mild dysplastic features, not enough for MDS diagnosis by World Health Organization criteria. Normal cytogenetics. 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 Patient is being seen by Dr. Carey about every 6 months. It was discussed that the changes in his bone marrow were not enough for a formal diagnosis of myelodysplastic syndrome, could be CHIP or CCUS but, this could be a precursor for myeloid malignancy in the future. Patient is on observation. Patient not having any complaints of chronic infections, B symptoms. Patient is admitted for elective orthopedic spine surgery. Patient had a laminectomy and decompression with Dr. Herr. Postop patient is doing well, feels good, no unusual pain, numbness or tingling. Review of Systems 10 point review of systems is negative except stated in HPI Past Medical History Past Medical History: Cancer, Hyperlipidemia, Osteoarthritis (OA) Additional Past Medical History / Comment(s): bowel obstruction w/necrosis 2010, myelodysplatic syndrome-(low WBC,RBC and platelets), hx hiatal hernia, degenerative disks, skin cancer, left leg numbness, + COVID 03/08/21 History of Any Multi-Drug Resistant Organisms: None Reported Past Surgical History: Bowel Resection, Hernia Repair, Orthopedic Surgery Additional Past Surgical History / Comment(s): laparotomy w/ lysis of adhesions, steven elbow surgery for tendon repair, steven inguinal hernia, femoral hernia rep air, steven thumb fusion, rt index finger knuckle replaced, left index finger surgery, bunionectomy steven feet(rt foot x 2), hammertoe surgery, Past Anesthesia/Blood Transfusion Reactions: Postoperative Nausea & Vomiting (PONV) Additional Past Anesthesia/Blood Transfusion Reaction / Comm: no hx blood transfusion Past Psychological History: No Psychological Hx Reported Smoking Status: Former smoker Past Alcohol Use History: Daily Additional Past Alcohol Use History / Comment(s): quit smoking 1979, smoked approx 11 yrs 2-2 1/2 ppd, 1-2 beer daily Past Drug Use History: Marijuana Additional Drug Use History / Comment(s): weekly - Past Family History Mother Family Medical History: Cancer, Deep Vein Thrombosis (DVT) Additional Family Medical History / Comment(s): melanoma Father Family Medical History: Cancer Additional Family Medical History / Comment(s): prostate cancer Brother(s) Family Medical History: Cancer Additional Family Medical History / Comment(s): multiple myeloma Medications and Allergies Home Medications Medication Instructions Recorded Confirmed Type Cholecalciferol (Vitamin D3) 2,000 unit PO DAILY 11/26/18 06/10/21 History [Vitamin D3] Pravastatin Sodium [Pravachol] 80 mg PO DAILY 11/26/18 06/10/21 History Allergies Allergy/AdvReac Type Severity Reaction Status Date / Time fluoride Allergy Swelling Verified 06/10/21 06:44 in mouth, itching, rash Penicillins Allergy Rash/Hives Verified 06/10/21 06:44 propoxyphene Allergy Itching Verified 06/10/21 06:44 [From Darvocet-N] ibuprofen AdvReac Abdominal Verified 06/10/21 06:44 Pain/gas Physical Exam Vitals: Vital Signs Temp Pulse Pulse Resp BP Pulse Ox 06/10/21 13:15 88 16 123/68 96 06/10/21 13:00 90 16 132/70 100 06/10/21 12:45 72 16 126/64 100 06/10/21 12:31 87 16 139/58 100 06/10/21 12:23 97.4 F L 72 14 135/66 100 06/10/21 06:57 98 F 65 18 153/74 97 Intake and Output 06/10/21 06/10/21 06/10/21 06:59 14:59 22:59 Intake Total 2551 Output Total 930 Balance 1621 Intake: IV 2551 Output: Urine 480 Estimated Blood Loss 450 Other: Weight 82 kg 82 kg - Constitutional General appearance: average body habitus, cooperative, no acute distress - EENT Eyes: anicteric sclerae, EOMI ENT: hearing grossly normal, normal oropharynx - Neck Neck: no lymphadenopathy - Respiratory Respiratory: bilateral: CTA - Cardiovascular Rhythm: regular Heart sounds: normal: S1, S2 Abnormal Heart Sounds: no systolic murmur, no diastolic murmur, no rub, no S3 Gallop, no S4 Gallop, no click, no other leg Peripheral Edema: bilateral: None - Gastrointestinal General gastrointestinal: no absent bowel sounds, no decreased bowel sounds, no distended, no hepatomegaly, no hyperactive bowel sounds, normal bowel sounds, no organomegaly, no rigid, no scaphoid, soft, no splenomegaly, no tenderness, no umbilical hernia, no ventral hernia - Integumentary Integumentary: normal - Neurologic Neurologic: CNII-XII intact (grossly) - Musculoskeletal Musculoskeletal: strength equal bilaterally - Psychiatric Psychiatric: A&O x's 3, appropriate affect, intact judgment & insight Assessment and Plan (1) Leukopenia Narrative/Plan: Pt has been worked up for leukopenia by Dr. Carey with circumstances as described in HPI. CBC in AM. Based on how pt does postop, and if he is getting around well, not certain if anticoagulation is necessary. Will review with Dr. Carey and give final rec tomorrow. Current Visit: Yes Status: Chronic Priority: Medium Code(s): D72.819 - DECREASED WHITE BLOOD CELL COUNT, UNSPECIFIED SNOMED Code(s): 90497395
[2021-06-10] MEDS: HYDROcodone/APAP 5-325MG 1 EACH TAB PO PRN (21:59)
[2021-06-10] MEDS: CYCLOBENZAPRINE 10 MG TAB PO PRN (21:59)
[2021-06-11] MEDS: HYDROmorphone 1 MG/ML 1 ML SYRINGE IVP PRN ×2 (03:15→10:35)
[2021-06-11] MEDS: SODIUM CHLORIDE 0.9% 1,000 ML IV SCH ×2 (03:19→15:21)
[2021-06-11] MEDS: LACTATED RINGERS 1,000 ML IV SCH (03:20)
[2021-06-11] MEDS: PRAVASTATIN SODIUM 80 MG TAB PO SCH (07:25)
[2021-06-11] MEDS: CYCLOBENZAPRINE 10 MG TAB PO PRN ×2 (07:25→15:21)
[2021-06-11] MEDS: CHOLECALCIFEROL 25 MCG (1000 IU) TABLET PO SCH (07:25)
[2021-06-11] MEDS: SENNOSIDES-DOCUSATE SODIUM 1 EACH TAB PO SCH (07:25)
[2021-06-11] MEDS: HYDROcodone/APAP 5-325MG 1 EACH TAB PO PRN ×4 (07:26→20:29)
--- NOTE | 2021-06-11 08:24 | P.PN ---
Progress Note - Text Progress Note Date: 06/11/21 Orthopedic Spine History of present illness: Patient is a pleasant 71-year-old male who is seen and examined at the bedside following posterior lateral decompression and fusion performed yesterday. Patient states they are doing ok post operatively. Currently does not complain of nausea, vomiting, fever, or chills. Patient states pain has been adequately controlled with medications. He was not out of bed yesterday postoperatively. He is looking forward to working with physical therapy today. He denies any lower extremity weakness or radiculopathy bilaterally. He does have pain around the surgical sites the lumbar spine which was significant overnight. He has difficulty rolling over in bed. He was seen by hematology yesterday. 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 Patient is known to follow with Dr. Carey in the outpatient setting. Consultation has also been placed with medicine. Physical Exam Lumbar Fusion: Status post surgical day number Patient is awake, alert, and oriented 3 Vital signs stable Good chest excursion with deep inspiration and expiration Dorsiflexion, plantarflexion, and extensor hallucis longus positive sustained bilaterally No signs or symptoms of DVT; no calf pain; pneumatic cuffs intact bilateral lower extremities Optifoam dressings remain intact over the lumbar spine and right iliac crest Neurovascularly intact bilaterally lower extremities Mathew catheter intact Assessment: Status post L3-4 and L4-5 minimally invasive posterior lateral decompression and fusion with transforaminal lumbar interbody fusion Low back pain 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 Ambulate as tolerated; work with Physical Therapy to increase mobilization 2. Continue pain control with IV and oral medications; will plan to begin weaning the patient off of IV narcotic medication in anticipation for discharge home in the next 1-2 days 3. Dressings to remain intact with Optifoam; patient may shower with dressings intact 4. Medicine and hematology will continue to manage patient for patient's other medical diagnoses including leukopenia, Myelodysplastic syndrome, Clonal karyotypic abnormality, and Hyperlipidemia 5. Mathew catheter to remain intact. We'll plan to discontinue his Mathew catheter was patient is able to increase his mobility and ambulation 6. We will continue to follow the patient closely; depending on the patient's progress, we may plan for discharge home over the next 1-2 days 7. Patient can follow-up with Lenny Fierro PA-C or Dr. Brando Herr at [facility] in 2-3 weeks following discharge
[2021-06-11 09:11] LABS: Basophils # (A) 0.01 X 10*3/uL (0.00-0.10); Basophils % (A) 0.1 %; Eosinophils # (A) 0 X 10*3/uL (0.04-0.35); Eosinophils % (A) 0 %; HCT 34.4 % (39.6-50.0); HGB 11.2 g/dL (13.0-17.0); Immature Grans, Automated 0.7 %; Lymphocytes # (A) 0.66 X 10*3/uL (0.90-5.00); Lymphocytes % (A) 9.6 %; MCH 33.3 pg (27.0-32.0); MCHC 32.6 g/dL (32.0-37.0); MCV 102.4 fL (80.0-97.0); Mean Platelet Volume 11.2 fL (9.5-12.2); Monocytes # (A) 1.01 X 10*3/uL (0.20-1.00); Monocytes % (A) 14.7 %; NRBC Per 100 WBC 0 /100 WBCS (0.0-0.0); Neutrophils # (A) 5.15 X 10*3/uL (1.80-7.70); Neutrophils % (A) 74.9 %; Platelet Count 138 X 10*3/uL (140-440); RBC 3.36 X 10*6/uL (4.40-5.60); WBC 6.88 X 10*3/uL (4.50-10.00)
[2021-06-11 09:25] LABS: African American GFR (CKD) 99.2 (60.0-200.0); Anion Gap 10.2 mmol/L (10.00-18.00); Blood Urea Nitrogen 12.6 mg/dL (9.0-27.0); Calcium 8.4 mg/dL (8.7-10.3); Carbon Dioxide 22.8 mmol/L (20.0-27.5); Non-African American GFR(CKD) 85.6 (60.0-200.0); Potassium 3.8 mmol/L (3.5-5.5)
--- NOTE | 2021-06-11 13:03 | P.CONS ---
History of Present Illness - History of Present Illness Patient is a pleasant 71-year-old female male admitted for back pain and elec tive laminectomy and decompression of L3-4, L4-5. Patient didn't pass gas yet pain is better controlled compared to yesterday still has some pain with movement. Patient denied any fever chills patient does have history of myelodysplastic syndrome. Patient still has a Mathew catheter in place didn't pass gas yet. REVIEW OF SYSTEMS: CONSTITUTIONAL: No fever, no malaise, no fatigue. HEENT: No recent visual problems or hearing problems. Denied any sore throat. CARDIOVASCULAR: No chest pain, orthopnea, PND, no palpitations, no syncope. PULMONARY: No shortness of breath, no cough, no hemoptysis. GASTROINTESTINAL: No diarrhea, no nausea, no vomiting, no abdominal pain. NEUROLOGICAL: No headaches, no weakness, no numbness. HEMATOLOGICAL: Denies any bleeding or petechiae. GENITOURINARY: Denies any burning micturition, frequency, or urgency. MUSCULOSKELETAL/RHEUMATOLOGICAL: Patient has pain in the back from surgery ENDOCRINE: Denies any polyuria or polydipsia. The rest of the 14-point review of systems is negative. PHYSICAL EXAMINATION: GENERAL: The patient is alert and oriented x3, not in any acute distress. Well developed, well nourished. HEENT: Pupils are round and equally reacting to light. EOMI. No scleral icterus. No conjunctival pallor. Normocephalic, atraumatic. No pharyngeal erythema. No thyromegaly. CARDIOVASCULAR: S1 and S2 present. No murmurs, rubs, or gallops. PULMONARY: Chest is clear to auscultation, no wheezing or crackles. ABDOMEN: Soft, nontender, nondistended, sluggish bowel sounds. No palpable organomegaly. MUSCULOSKELETAL: No joint swelling or deformity. EXTREMITIES: No cyanosis, clubbing, or pedal edema. NEUROLOGICAL: Gross neurological examination did not reveal any focal deficits. SKIN: No rashes. Assessment and plan -Lumbar laminectomy and decompression surgery: Postoperatively patient's pain is fairly well-controlled patient is postoperative day 1. -History of mild dysplastic syndrome, although patient's hemoglobin and white blood cell count and platelet count are fairly stable at this time no further intervention at this time -Hyperlipidemia continue with pravastatin DVT prophylaxis: As per the primary service and hematology Past Medical History Past Medical History: Cancer, Hyperlipidemia, Osteoarthritis (OA) Additional Past Medical History / Comment(s): bowel obstruction w/necrosis 2010, myelodysplatic syndrome-(low WBC,RBC and platelets), hx hiatal hernia, degenerative disks, skin cancer, left leg numbness, + COVID 03/08/21 History of Any Multi-Drug Resistant Organisms: None Reported Past Surgical History: Bowel Resection, Hernia Repair, Orthopedic Surgery Additional Past Surgical History / Comment(s): laparotomy w/ lysis of adhesions, steven elbow surgery for tendon repair, steven inguinal hernia, femoral hernia repair, steven thumb fusion, rt index finger knuckle replaced, left index finger surgery, bunionectomy steven feet(rt foot x 2), hammertoe surgery, Past Anesthesia/Blood Transfusion Reactions: Postoperative Nausea & Vomiting (PONV) Additional Past Anesthesia/Blood Transfusion Reaction / Comm: no hx blood tr ansfusion Past Psychological History: No Psychological Hx Reported Smoking Status: Former smoker Past Alcohol Use History: Daily Additional Past Alcohol Use History / Comment(s): quit smoking 1979, smoked approx 11 yrs 2-2 1/2 ppd, 1-2 beer daily Past Drug Use History: Marijuana Additional Drug Use History / Comment(s): weekly - Past Family History Mother Family Medical History: Cancer, Deep Vein Thrombosis (DVT) Additional Family Medical History / Comment(s): melanoma Father Family Medical History: Cancer Additional Family Medical History / Comment(s): prostate cancer Brother(s) Family Medical History: Cancer Additional Family Medical History / Comment(s): multiple myeloma Medications and Allergies Home Medications Medication Instructions Recorded Confirmed Type Cholecalciferol (Vitamin D3) 2,000 unit PO DAILY 11/26/18 06/10/21 History [Vitamin D3] Pravastatin Sodium [Pravachol] 80 mg PO DAILY 11/26/18 06/10/21 History Allergies Allergy/AdvReac Type Severity Reaction Status Date / Time fluoride Allergy Swelling Verified 06/10/21 06:44 in mouth, itching, rash Penicillins Allergy Rash/Hives Verified 06/10/21 06:44 propoxyphene Allergy Itching Verified 06/10/21 06:44 [From Darvocet-N] ibuprofen AdvReac Abdominal Verified 06/10/21 06:44 Pain/gas Physical Exam Vitals: Vital Signs Temp Pulse Pulse Resp BP Pulse Ox 06/11/21 07:36 98.3 F 94 18 147/80 98 06/11/21 02:00 99.8 F H 107 H 147/76 97 06/10/21 22:15 102 H 17 06/10/21 20:00 98.9 F 102 H 17 159/81 99 06/10/21 15:50 107 H 130/65 91 L 06/10/21 15:35 103 H 113/65 94 L 06/10/21 15:20 106 H 120/66 93 L 06/10/21 15:05 107 H 133/77 91 L 06/10/21 14:50 109 H 130/71 94 L 06/10/21 14:35 105 H 158/87 97 06/10/21 14:20 103 H 149/79 90 L 06/10/21 14:05 97 136/68 96 06/10/21 13:50 98.7 F 103 H 19 121/69 96 06/10/21 13:15 88 16 123/68 96 Intake and Output 06/10/21 06/11/21 06/11/21 22:59 06:59 14:59 Output Total 900 900 650 Balance -900 -900 -650 Output: Urine 900 900 650 Uretheral (Mathew) 650 Other: Voiding Method Indwelling Catheter Indwelling Catheter Results CBC & Chem 7: 06/11/21 04:47 06/11/21 04:47 Labs: Abnormal Lab Results - Last 24 Hours (Table) 06/11/21 06/11/21 Range/Units 04:47 04:47 RBC 3.36 L (4.40-5.60) X 10*6/uL Hgb 11.2 L (13.0-17.0) g/dL Hct 34.4 L (39.6-50.0) % MCV 102.4 H (80.0-97.0) fL MCH 33.3 H (27.0-32.0) pg Plt Count 138 L (140-440) X 10*3/uL Immature Gran # 0.05 H (0.00-0.04) X 10*3/uL Lymphocytes # 0.66 L (0.90-5.00) X 10*3/uL Monocytes # 1.01 H (0.20-1.00) X 10*3/uL Eosinophils # 0 L (0.04-0.35) X 10*3/uL Glucose 128 H (70-110) mg/dL Calcium 8.4 L (8.7-10.3) mg/dL
--- NOTE | 2021-06-11 21:46 | P.PN ---
Subjective Progress Note Date: 06/11/21 Principal diagnosis: elective orthopedic spine surgery In f/u today pt states he got up and ambulated. He is doing very well. Objective - Vital Signs Vital signs: Vital Signs Temp 99.8 F H 06/11/21 20:26 Pulse 101 H 06/11/21 20:26 Resp 18 06/11/21 20:26 BP 165/81 06/11/21 20:26 Pulse Ox 96 06/11/21 20:26 Intake & Output 06/11/21 06/11/21 06/12/21 06:59 18:59 06:59 Output Total 1800 1650 Balance -1800 -1650 Output: Urine 1800 1650 Uretheral (Mathew) 650 Other: Voiding Method Indwelling Catheter Indwelling Catheter - Constitutional General appearance: Present: average body habitus, cooperative, no acute distress - EENT Eyes: Present: anicteric sclerae, EOMI ENT: Present: hearing grossly normal - Respiratory Details: resp even and unlabored - Integumentary Integumentary: Present: normal - Neurologic Neurologic: Present: CNII-XII intact - Psychiatric Psychiatric: Present: A&O x's 3, appropriate affect, intact judgment & insight - Labs CBC & Chem 7: 06/11/21 04:47 06/11/21 04:47 Labs: Abnormal Lab Results - Last 24 Hours (Table) 06/11/21 06/11/21 Range/Units 04:47 04:47 RBC 3.36 L (4.40-5.60) X 10*6/uL Hgb 11.2 L (13.0-17.0) g/dL Hct 34.4 L (39.6-50.0) % MCV 102.4 H (80.0-97.0) fL MCH 33.3 H (27.0-32.0) pg Plt Count 138 L (140-440) X 10*3/uL Immature Gran # 0.05 H (0.00-0.04) X 10*3/uL Lymphocytes # 0.66 L (0.90-5.00) X 10*3/uL Monocytes # 1.01 H (0.20-1.00) X 10*3/uL Eosinophils # 0 L (0.04-0.35) X 10*3/uL Glucose 128 H (70-110) mg/dL Calcium 8.4 L (8.7-10.3) mg/dL Assessment and Plan (1) Leukopenia Narrative/Plan: Pt has been worked up for leukopenia by Dr. Carey with circumstances as described in consult. CBC today WNL CBC in AM. Pt seems to be doing well post op. He was already up ambulating today. Current Visit: Yes Status: Chronic Priority: Medium Code(s): D72.819 - DECREASED WHITE BLOOD CELL COUNT, UNSPECIFIED SNOMED Code(s): 72123062
[2021-06-12] MEDS: LACTATED RINGERS 1,000 ML IV SCH (01:57)
[2021-06-12] MEDS: CYCLOBENZAPRINE 10 MG TAB PO PRN ×2 (02:01→16:34)
[2021-06-12] MEDS: HYDROmorphone 1 MG/ML 1 ML SYRINGE IVP PRN (02:01)
[2021-06-12] MEDS: SODIUM CHLORIDE 0.9% 1,000 ML IV SCH (03:21)
[2021-06-12 06:00] LABS: Basophils % (A) 0 %; Eosinophils % (A) 0 %; HCT 36.3 % (39.0-53.0); HGB 11.9 gm/dL (13.0-17.5); Lymphocytes # (A) 0.7 k/uL (1.0-4.8); Lymphocytes % (A) 12 %; MCH 34.7 pg (25.0-35.0); MCHC 32.7 g/dL (31.0-37.0); MCV 105.9 fL (80.0-100.0); Macrocytosis Moderate; Monocytes # (A) 0.6 k/uL (0-1.0); Monocytes % (A) 10 %; Neutrophils # (A) 4.6 k/uL (1.3-7.7); Neutrophils % (A) 76 %; Platelet Count 140 k/uL (150-450); RBC 3.43 m/uL (4.30-5.90); WBC 6.1 k/uL (3.8-10.6)
[2021-06-12] MEDS: PRAVASTATIN SODIUM 80 MG TAB PO SCH (07:26)
[2021-06-12] MEDS: CHOLECALCIFEROL 25 MCG (1000 IU) TABLET PO SCH (07:26)
[2021-06-12] MEDS: SENNOSIDES-DOCUSATE SODIUM 1 EACH TAB PO SCH (07:27)
[2021-06-12] MEDS ORDERED: hydrALAZINE HCL 10 MG TAB PO STA (07:56)
[2021-06-12] MEDS: HYDROcodone/APAP 5-325MG 1 EACH TAB PO PRN ×4 (08:16→22:19)
--- NOTE | 2021-06-12 11:42 | P.PN ---
Progress Note - Text Progress Note Date: 06/12/21 Orthopedic Spine History of present illness: Patient is a pleasant 71-year-old male who is seen and examined at the bedside following posterior lateral decompression and fusion performed Thursday. Patient states they are doing ok post operatively and has improved as compared to yesterday. Currently does not complain of nausea, vomiting, fever, or chills. Patient states pain has been adequately controlled with medications. He has had benefit with cyclobenzaprine for muscle spasm as well. He is currently sitting in a bedside chair. He is landing to work with physical therapy to see if he is able to ambulate steps. He denies any lower extremity weakness or radiculopathy bilaterally. He does have pain around the surgical sites the lumbar spine with some intermittent burning. He continues to be seen by medicine and hematology. 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 Patient is known to follow with Dr. Carey in the outpatient setting. His Mathew catheter has been discontinued and he is able to void independently without difficulty. Physical Exam Lumbar Fusion: Status post surgical day number 2 Patient is awake, alert, and oriented 3 Vital signs stable Good chest excursion with deep inspiration and expiration Dorsiflexion, plantarflexion, and extensor hallucis longus positive sustained bilaterally No signs or symptoms of DVT; no calf pain; pneumatic cuffs intact bilateral lower extremities Optifoam dressings remain intact over the lumbar spine and right iliac crest; surgical sites are clean, dry, and intact Neurovascularly intact bilaterally lower extremities Assessment: Status post L3-4 and L4-5 minimally invasive posterior lateral decompression and fusion with transforaminal lumbar interbody fusion Low back pain 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 Ambulate as tolerated; work with Physical Therapy to increase mobilization 2. Continue pain control with IV and oral medications; will plan to begin weaning the patient off of IV narcotic medication in anticipation for discharge home in the next 1-2 days; If he continues to improve and he is cleared by medicine and hematology, we will plan to discharge him home tomorrow, 06/13/2021; patient may continue his cyclobenzaprine as prescribed as needed for muscle spasm. 3. Dressings to remain intact with Optifoam; patient may shower with dressings intact 4. Medicine and hematology will continue to manage patient for patient's other medical diagnoses including leukopenia, Myelodysplastic syndrome, Clonal karyotypic abnormality, and Hyperlipidemia 5. We will continue to follow the patient closely 6. Patient can follow-up with Lenny Fierro PA-C or Dr. Brando Herr at [facility] in 2-3 weeks following discharge The patient is seen and examined at bedside along with Lenny Fierro I am in agreement with the above dictations and plan
--- NOTE | 2021-06-12 14:47 | P.PN ---
Subjective Progress Note Date: 06/12/21 Patient is a pleasant 71-year-old female male admitted for back pain and elective laminectomy and decompression of L3-4, L4-5. Patient didn't pass gas yet pain is better controlled compared to yesterday still has some pain with movement. Patient denied any fever chills patient does have history of myelod ysplastic syndrome. Patient still has a Mathew catheter in place didn't pass gas yet. 06/12/2021 Patient is evaluated today sitting up in the chair. He is ambulating with a w alker. Mathew catheter has been removed and patient is voiding without difficulty. Passing gas, no BM yet. He is post operative day #2 lumbar laminectomy and decompression surgery. At rest pain is tolerable, pt does rate pain a 9/10 while ambulatory. Pain medication is helping when he receives it. Bl ood pressure elevated today up to 190 systolic with heart rate 109. This could be related to pain. Blood pressure now 147/83 which is consistent with blood pressure at admission. He was given a doze of hydralazine today. We will start patient on low dose losartan and monitor. Low grade fever last night, encourage IS use. EKG was requested for the tachycardia. Hemoglobin today 11.9. Review of Systems Constitutional: Denied any fatigue denied any fever. Cardio vascular: denied any chest pain, palpitations Gastrointestinal: denied any nausea, vomiting, diarrhea Pulmonary: Denied any shortness of breath cough Neurologic denied any new focal deficits All inpatient medications were reviewed and appropriate changes in these medications as dictated in the interval history and assessment and plan. PHYSICAL EXAMINATION: GENERAL: The patient is alert and oriented x3, not in any acute distress. Well developed, well nourished. HEENT: Pupils are round and equally reacting to light. EOMI. No scleral icterus. No conjunctival pallor. Normocephalic, atraumatic. No pharyngeal erythema. No thyromegaly. CARDIOVASCULAR: S1 and S2 present. No murmurs, rubs, or gallops. PULMONARY: Chest is clear to auscultation, no wheezing or crackles. ABDOMEN: Soft, nontender, nondistended, sluggish bowel sounds. No palpable organomegaly. MUSCULOSKELETAL: No joint swelling or deformity. Post surgical spine. EXTREMITIES: No cyanosis, clubbing, or pedal edema. NEUROLOGICAL: Gross neurological examination did not reveal any focal deficits. SKIN: No rashes. Assessment and plan -Lumbar laminectomy and decompression surgery: Patient is postoperative day 2, pain is fairly controlled, he is able to ambulate with walker independently. -History of mild dysplastic syndrome, although patient's hemoglobin and white blood cell count and platelet count are fairly stable at this time no further intervention at this time, hgb today 11.9 -Hyperlipidemia continue with pravastatin -Hypertension with no prior history, started on low dose losartan. DVT prophylaxis: As per the primary service and hematology Thank you kindly for this consultation. We will continue to follow along. The impression and plan of care has been dictated by Lamar Pérez, Nurse Practitioner as directed. Dr. Fred MD I have performed a history and physical examination and medical decision making of this patient, discussed the same with the dictator, and agree with the dictators assessment and plan as written, documented as a scribe. Based on total visit time, I have performed more than 50% of this visit. Objective - Vital Signs Vital signs: Vital Signs Temp 98.2 F 06/12/21 08:15 Pulse 109 H 06/12/21 08:15 Resp 18 06/12/21 08:15 BP 147/83 06/12/21 09:15 Pulse Ox 95 06/12/21 08:15 Intake & Output 06/11/21 06/12/21 06/12/21 18:59 06:59 18:59 Intake Total 200 Output Total 4815 848 2263 Balance -1650 -700 -1200 Intake: Oral 200 Output: Urine 0702 744 7710 Uretheral (Mathew) 650 1200 Other: Voiding Method Indwelling Catheter Indwelling Catheter - Labs CBC & Chem 7: 06/12/21 04:11 06/11/21 04:47 Labs: Abnormal Lab Results - Last 24 Hours (Table) 06/12/21 Range/Units 04:11 RBC 3.43 L (4.30-5.90) m/uL Hgb 11.9 L (13.0-17.5) gm/dL Hct 36.3 L (39.0-53.0) % MCV 105.9 H (80.0-100.0) fL Plt Count 140 L (150-450) k/uL Lymphocytes # 0.7 L (1.0-4.8) k/uL Assessment and Plan Time with Patient: Less than 30
--- NOTE | 2021-06-12 16:10 | P.PN ---
Subjective Progress Note Date: 06/12/21 Principal diagnosis: elective orthopedic spine surgery In f/u today pt states he had a "rough night", elevated BP. Denies VARGAS, nausea, SOB. Objective - Vital Signs Vital signs: Vital Signs Temp 97.4 F L 06/12/21 14:00 Pulse 104 H 06/12/21 14:00 Resp 18 06/12/21 14:00 BP 131/78 06/12/21 14:00 Pulse Ox 97 06/12/21 14:00 Intake & Output 06/11/21 06/12/21 06/12/21 18:59 06:59 18:59 Intake Total 200 Output Total 4273 080 8556 Balance -1650 -700 -1200 Intake: Oral 200 Output: Urine 8273 746 4279 Uretheral (Mathew) 650 1200 Other: Voiding Method Indwelling Catheter Indwelling Catheter - Constitutional General appearance: Present: average body habitus, cooperative, no acute distress - EENT Eyes: Present: anicteric sclerae, EOMI ENT: Present: hearing grossly normal - Integumentary Integumentary: Present: normal - Neurologic Neurologic: Present: CNII-XII intact (grossly) - Psychiatric Psychiatric: Present: A&O x's 3, appropriate affect, intact judgment & insight - Labs CBC & Chem 7: 06/12/21 04:11 06/11/21 04:47 Labs: Abnormal Lab Results - Last 24 Hours (Table) 06/12/21 Range/Units 04:11 RBC 3.43 L (4.30-5.90) m/uL Hgb 11.9 L (13.0-17.5) gm/dL Hct 36.3 L (39.0-53.0) % MCV 105.9 H (80.0-100.0) fL Plt Count 140 L (150-450) k/uL Lymphocytes # 0.7 L (1.0-4.8) k/uL Assessment and Plan (1) Leukopenia Narrative/Plan: Pt has been worked up for leukopenia by Dr. Carey with circumstances as described in consult. CBC today cont to be WNL CBC in AM while inpt. Current Visit: Yes Status: Chronic Priority: Medium Code(s): D72.819 - DECREASED WHITE BLOOD CELL COUNT, UNSPECIFIED SNOMED Code(s): 38359133 Plan: No specific clinical recommendations from Hematology re post op anticoagulation for this pt. Orthopedic standard of care.
[2021-06-13] MEDS: LACTATED RINGERS 1,000 ML IV SCH (04:13)
[2021-06-13] MEDS: CYCLOBENZAPRINE 10 MG TAB PO PRN ×2 (04:13→13:14)
[2021-06-13] MEDS: HYDROcodone/APAP 5-325MG 1 EACH TAB PO PRN ×4 (04:13→19:16)
[2021-06-13] MEDS: CHOLECALCIFEROL 25 MCG (1000 IU) TABLET PO SCH (07:55)
[2021-06-13] MEDS: SENNOSIDES-DOCUSATE SODIUM 1 EACH TAB PO SCH (07:55)
[2021-06-13] MEDS: PRAVASTATIN SODIUM 80 MG TAB PO SCH (07:55)
[2021-06-13] MEDS: LOSARTAN 25 MG TAB PO SCH (07:55)
--- NOTE | 2021-06-13 08:03 | P.DS ---
Providers Date of admission: 06/11/21 07:27 Attending physician: Watson Herr Consults: 06/10/21 12:17 Consult Physician Routine Consulting Provider: Antonina Carey Consult Reason/Comments: leukopenia Do you want consulting provider notified?: Yes Consult Physician Routine Consulting Provider: Darius Ibarra Consult Reason/Comments: medical management Do you want consulting provider notified?: Yes Primary care physician: Emily Alvarez [facility] Hospital Course: The patient presented on the day of admission as per their operative note. He underwent lumbar laminectomy decompression and fusion for his severe spinal stenosis with disc degeneration and lower extremity radiculopathy. He has been making good progress in terms of his pain in his mobilization and his diet. He is still having trouble with his voiding this morning. He was able to void once yesterday on his own but overnight had to have a straight catheter for emptying of his bladder. Physical Exam The incision site is clean dry and intact. There is no erythema no drainage. There is no purulence no evidence of infection. There is no active drainage Abdomen soft and nontender. Chest has good excursion with deep inspiration and expiration. The patient has active and passive range of motion intact at the upper and lower extremities. There is no acute change in neurologic status. He has sustained dorsal flexion plantar flexion and EHL intact Hospital Course Postoperative day #3 status post minimally invasive decompression and fusion lumbar spine for his severe spinal stenosis with lower extremity radiculopathy History of leukopenia which has remained stable Neurogenic bladder postoperatively. I do not think that he has acute neurologic change. He is having some urinary retention with neurogenic plantar. This should resolve expectantly he may need closer observation overnight. If he is not voiding on his own later today we will reinsert Mathew overnight and observe him for another night. He was able to void a small amount yesterday after the Mathew was discontinued but had difficulty emptying his bladder overnight and had to get straight cathed. We will see how he does today and if he is able to void and he will be able to be discharged home, however if he is unable to void on his own he will have a Mathew reinserted and we'll keep him overnight for further observation and management. Otherwise The patient has been making adequate progress postoperatively. They have completed the prophylactic antibiotics without any signs or symptoms of infection. The patient has been able to advance their diet, and is tolerating diet adequately. The pain was initially controlled with IV medications and is now controlled appropriately with oral medications. The patient has been able to increase their mobilization. His lumbar spine seems to be doing well and his legs are making good improvement as well with his surgery The patient has progressed appropriately other than his urinating. I think they are in good stable condition for discharge today if he is able to urinate reliably on his own. They will be sent home with appropriate prescriptions. I answered their questions to the best of my ability in a language that they can understand and they are agreeable with the plan. If he is able to urinate on his own today that he will be able to be discharged and They will follow up as directed. Patient Condition at Discharge: Fair Plan - Discharge Summary Discharge Rx Participant: Yes New Discharge Prescriptions: New HYDROcodone/APAP 5-325MG [[place] 5] 1 each PO Q4HR PRN #42 tab PRN Reason: Pain Cyclobenzaprine [Flexeril] 10 mg PO TID PRN #60 tab PRN Reason: Muscle Spasm No Action Pravastatin Sodium [Pravachol] 80 mg PO DAILY Cholecalciferol (Vitamin D3) [Vitamin D3] 2,000 unit PO DAILY Discharge Medication List Cholecalciferol (Vitamin D3) [Vitamin D3] 2,000 unit PO DAILY 11/26/18 [History] Pravastatin Sodium [Pravachol] 80 mg PO DAILY 11/26/18 [History] Cyclobenzaprine [Flexeril] 10 mg PO TID PRN #60 tab 06/12/21 [Rx] HYDROcodone/APAP 5-325MG [[place] 5] 1 each PO Q4HR PRN #42 tab 06/12/21 [Rx] Follow up Appointment(s)/Referral(s): Lenny Fierro, PAC [PHYSICIAN SEAT JOINER] - 2 Weeks (Patient may follow-up with Lenny Fierro PA-C or Dr. Brando Herr at [facility] in 2-3 weeks following discharge. ) Activity/Diet/Wound Care/Special Instructions: 1. Patient may shower with Optifoam dressing intact. 2. Patient may remove Optifoam dressing in 3 days and shower without a dressing at that time. 3. Patient should refrain from driving until at least after their first follow- up appointment in the office. 4. Patient should avoid excessive bending, twisting, lifting; avoid overhead lifting; no lifting greater than 10 pounds 5. Take medications as prescribed 6. Do not soak in tub Discharge Disposition: HOME SELF-CARE
[2021-06-13] MEDS: TAMSULOSIN 0.4 MG CAP.ER.24H PO SCH (14:26)
--- NOTE | 2021-06-13 15:27 | US ---
EXAMINATION TYPE: US venous doppler duplex UE RT DATE OF EXAM: 06/13/2021 COMPARISON: NONE CLINICAL HISTORY: 71-year-old male R/O DVT. Inpatient with Right forearm palpable with skin redness n oted today; patient has IV port distally at wrist TECHNIQUE: Grayscale, color doppler, spectral doppler imaging performed of the deep veins of the upp er extremities. SIDE PERFORMED: right FINDINGS: Right Arm: Negative for DVT. Manager Transfer notes: Superficial venous thrombosis noted in Cephalic Vein for a 10cm length at patient' s symptoms right anterior arm and also in Basilic Vein for short segment at elbow as these veins are non compressible and filling defects are noted within here. Superficial venous thrombosis findings we re reported to patient's RN, Niyah, at exam's end. IMPRESSION: 1. No evidence for DVT within the right upper extremity. 2. However, exam is positive for SVT for a 10 cm long segment of the cephalic vein at the site of con ical concern. Additional short segment SVT within the basilic vein at the elbow.
[2021-06-14] MEDS: HYDROcodone/APAP 5-325MG 1 EACH TAB PO PRN ×3 (02:46→14:35)
[2021-06-14] MEDS: LACTATED RINGERS 1,000 ML IV SCH (05:59)
[2021-06-14 07:56] VITALS: RESP 18
[2021-06-14] MEDS: TAMSULOSIN 0.4 MG CAP.ER.24H PO SCH (08:10)
--- NOTE | 2021-06-14 08:31 | P.PN ---
Progress Note - Text Progress Note Date: 06/14/21 Orthopedic Spine History of present illness: Patient is a pleasant 71-year-old male who is seen and examined at the bedside following posterior lateral decompression and fusion performed Thursday. Patient states they are doing well post operatively. He has continued to improve in regards to his lumbar spine. Currently does not complain of nausea, vomiting, fever, or chills. Patient states pain has been adequately controlled with medications. He has been able to ambulate to the restroom. He is able to ambulate with assistance of a walker. He denies any lower extremity weakness or radiculopathy bilaterally. He does have pain around the surgical sites the lumbar spine which has continued to improve. 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 Patient is known to follow with Dr. Carey in the outpatient setting. He has been being seen by medicine and hematology during his admission. He is planning for discharge home yesterday but was having difficulty with voiding postoperatively. Initially he had been voiding without significant difficulty but then was having difficulty with retention. He had a half straight catheterization. He did not have to have a Mathew catheter reinserted. He was able to void this morning. He states his voiding is improving. He did recently have a bladder scan which she states showed approximately 300 mL residual. He does feel he is improving and could be discharged home today. He is been started on Flomax. We will continue to have this managed by medicine. He did have a IV near his right wrist. Yesterday he did develop some mid right forearm pain, erythema, and warmth. A ultrasound Doppler was performed of the right upper extremity to rule out DVT. Ultrasound Doppler was negative for DVT. Ultrasound Doppler was positive for SVT of the cephalic vein and basilic vein. Patient states they're planning for warm compresses. This will be managed by medicine. We did discuss in detail, patient is clear for discharge from orthopedic standpoint if cleared by medicine and urology today. Patient's medications have been sent to the [facility] located within [facility]. He received notification that his medications are ready. Physical Exam Lumbar Fusion: Status post surgical day number 4 Patient is awake, alert, and oriented 3 Vital signs stable Good chest excursion with deep inspiration and expiration Dorsiflexion, plantarflexion, and extensor hallucis longus positive sustained bilaterally No signs or symptoms of DVT; no calf pain; pneumatic cuffs intact bilateral lower extremities Optifoam dressings remain intact over the lumbar spine and right iliac crest; dressings are removed during physical examination No evidence of erythema, bruising, drainage, or obvious signs of infection over the surgical sites Patient does have evidence of a horizontal blood-filled blister at the superior edge of where the optifoam dressing was intact without active drainage Neurovascularly intact bilaterally lower extremities Evidence of some erythema, warmth, firmness, and some pain with palpation over the mid forearm with out proximal streaking Patient is able to perform active range of motion of the right upper extremity without significant difficulty No pain with palpation proximal to the right forearm Neurovascular intact right upper extremity Pertinent studies: Ultrasound of the right upper extremity taken on 06/13/2021: No evidence of DVT within the right upper extremity; positive for SVT for a 10 cm long segment of the cephalic vein at the site of clinical concern with additional short segment SVT within the cephalic vein at the elbow Assessment: Status post L3-4 and L4-5 minimally invasive posterior lateral decompression and fusion with transforaminal lumbar interbody fusion Low back pain L4-5 dynamic spondylolisthesis L3-4 spondylolisthesis and lateral listhesis L3-4 and L4-5 spinal canal stenosis and neural foraminal stenosis Left lower extremity radiculopathy Degenerative scoliosis Lumbar degenerative disc disease Leukopenia Myelodysplastic syndrome Clonal karyotypic abnormality Hyperlipidemia Postoperative urinary retention, improving Superficial vein thrombosis of the right cephalic vein and basilic vein Plan: 1. Ambulate as tolerated; work with Physical Therapy to increase mobilization; patient may use a walker to aid in ambulation as needed 2. Continue pain control with oral medications; patient's pain has continued to be controlled with oral medications which we will continue with in anticipation for discharge home today 3. Dressings have been removed over the surgical sites; patient may shower without a dressing intact at this time 4. There is evidence of a horizontal blood-filled blister about his surgical sites in his lumbar spine where the Optifoam dressing stopped at the skin. There is not currently any active drainage from this blister. We did discuss if this blister were 2 open it may be covered with a dressing as needed. 5. Medicine and hematology will continue to manage patient for patient's other medical diagnoses including leukopenia, Myelodysplastic syndrome, Clonal karyotypic abnormality, and Hyperlipidemia; postoperative urinary retention which is improving, and right upper extremity superficial vein thrombosis. 6. We will continue to follow the patient closely; patient has continued to improve as compared to yesterday and is voiding better. He continues with Flomax. At this time patient will be clear for discharge from an orthopedic standpoint pending clearance by medicine and hematology. 7. Patient can follow-up with Lenny Fierro PA-C or Dr. Brando Herr at [facility] in 2-3 weeks following discharge
[2021-06-14] MEDS: SENNOSIDES-DOCUSATE SODIUM 1 EACH TAB PO SCH (09:32)
[2021-06-14] MEDS: LOSARTAN 25 MG TAB PO SCH (09:32)
[2021-06-14] MEDS: PRAVASTATIN SODIUM 80 MG TAB PO SCH (09:32)
[2021-06-14] MEDS: CHOLECALCIFEROL 25 MCG (1000 IU) TABLET PO SCH (09:33)
[2021-06-14 14:23] VITALS: BP 139/63; PULSE 101; TEMP 96.8
--- NOTE | 2021-06-14 15:07 | P.PN ---
Subjective Progress Note Date: 06/14/21 Principal diagnosis: Lumbar laminectomy; status post decompression surgery Superficial venous thrombosis 71-year-old female male admitted for back pain and elective laminectomy and decompression of L3-4, L4-5. Patient didn't pass gas yet pain is better controlled compared to yesterday still has some pain with movement. Patient denied any fever chills patient does have history of myelodysplastic syndrome. Patient still has a Mathew catheter in place didn't pass gas yet. Patient evaluation revealed inflammation with painful nodule right forearm; stat venous Doppler completed which revealed superficial venous thrombosis; patient advised for warm compresses, keep arm elevated and anti-inflammatory in form of Motrin/ibuprofen Patient stable and cleared for discharge Objective - Vital Signs Vital signs: Vital Signs Temp 97.8 F 06/14/21 07:52 Pulse 96 06/14/21 07:52 Resp 18 06/14/21 07:52 BP 135/75 06/14/21 07:52 Pulse Ox 97 06/14/21 07:52 Intake & Output 06/13/21 06/14/21 06/14/21 18:59 06:59 18:59 Intake Total 1080 Output Total 400 775 650 Balance 680 775 -650 Intake: Oral 1080 Output: Urine 400 775 650 Other: Voiding Method Toilet Toilet Toilet Urinal Urinal Urinal # Voids 4 # Bowel Movements 0 - Exam GENERAL: The patient is alert and oriented x3, not in any acute distress. Well developed, well nourished. HEENT: Pupils are round and equally reacting to light. EOMI. No scleral icterus. No conjunctival pallor. Normocephalic, atraumatic. No pharyngeal erythema. No thyromegaly. CARDIOVASCULAR: S1 and S2 present. No murmurs, rubs, or gallops. PULMONARY: Chest is clear to auscultation, no wheezing or crackles. ABDOMEN: Soft, nontender, nondistended, sluggish bowel sounds. No palpable organomegaly. MUSCULOSKELETAL: No joint swelling or deformity. Post surgical spine. EXTREMITIES: No cyanosis, clubbing, or pedal edema. NEUROLOGICAL: Gross neurological examination did not reveal any focal deficits. SKIN: No rashes. - Labs CBC & Chem 7: 06/12/21 04:11 06/11/21 04:47 Assessment and Plan Assessment: Assessment and plan -Lumbar laminectomy and decompression surgery: Patient is postoperative day 2, pain is fairly controlled, he is able to ambulate with walker independently. -History of mild dysplastic syndrome, although patient's hemoglobin and white blood cell count and platelet count are fairly stable at this time no further intervention at this time, hgb today 11.9 -Hyperlipidemia continue with pravastatin -Hypertension with no prior history, started on low dose losartan. DVT prophylaxis: As per the primary service and hematology Thank you kindly for this consultation. We will continue to follow along.
== END 2021-06-14 14:53 | disposition home or self-care (01) | DRG 454 ==
LOC: OR 06:17 → 4SSUR 12:11 → OR 06-11 07:27 → OBSVTOIN 06-14 08:08
PROVIDERS: ADMIT Orthopaedic Surgery Orthopaedic Surgery of the Spine; ATTEND Orthopaedic Surgery Orthopaedic Surgery of the Spine
PROC: 8E0WXBZ Computer Assisted Procedure of Trunk Region (ICD-10-PCS; principal; 2021-06-10 07:30)
PROC: 01NB0ZZ Release Lumbar Nerve, Open Approach (ICD-10-PCS; principal; 2021-06-10 07:30)
PROC: 0ST20ZZ Resection of Lumbar Vertebral Disc, Open Approach (ICD-10-PCS; principal; 2021-06-10 07:30)
PROC: 07DS0ZZ Extraction of Vertebral Bone Marrow, Open Approach (ICD-10-PCS; principal; 2021-06-10 07:30)
PROC: 0SG0071 Fusion of Lumbar Vertebral Joint with Autologous Tissue Substitute, Posterior Approach, Posterior Column, Open Approach (ICD-10-PCS; 2021-06-14)
PROC: 0SG00AJ Fusion of Lumbar Vertebral Joint with Interbody Fusion Device, Posterior Approach, Anterior Column, Open Approach (ICD-10-PCS; 2021-06-14)
DX: M48.061 Spinal stenosis, lumbar region without neurogenic claudication (principal); I82.611 Acute embolism and thrombosis of superficial veins of right upper extremity; M43.16 Spondylolisthesis, lumbar region; M41.80 Other forms of scoliosis, site unspecified; M51.16 Intervertebral disc disorders with radiculopathy, lumbar region; Z79.899 Other long term (current) drug therapy; Z86.16 Personal history of COVID-19; N31.9 Neuromuscular dysfunction of bladder, unspecified; D46.9 Myelodysplastic syndrome, unspecified; M19.90 Unspecified osteoarthritis, unspecified site; E78.5 Hyperlipidemia, unspecified; I10 Essential (primary) hypertension; R33.9 Retention of urine, unspecified; Z80.42 Family history of malignant neoplasm of prostate; Z80.7 Family history of other malignant neoplasms of lymphoid, hematopoietic and related tissues; Z80.8 Family history of malignant neoplasm of other organs or systems; Z85.828 Personal history of other malignant neoplasm of skin; Z87.891 Personal history of nicotine dependence; Z98.1 Arthrodesis status; Z83.2 Family history of diseases of the blood and blood-forming organs and certain disorders involving the immune mechanism; Z98.890 Other specified postprocedural states; Z90.49 Acquired absence of other specified parts of digestive tract; Z88.6 Allergy status to analgesic agent; Z88.5 Allergy status to narcotic agent; Z88.0 Allergy status to penicillin; Z88.8 Allergy status to other drugs, medicaments and biological substances
CPT/HCPCS: 72100; 80048; 85025; 86850; 86891; 86900; 86901; 93005

== ENCOUNTER → 2022-03-31 | Outpatient (CLI) | payer MEDICARE ==
--- NOTE | 2022-03-31 11:05 | XR ---
EXAMINATION TYPE: XR hand complete LT DATE OF EXAM: 03/31/2022 10:56 AM INDICATION: Patient age:Male; 71 years old; Reason for study: M25.442; [facility]. COMPARISON: None TECHNIQUE: Frontal, lateral and oblique views of the left hand were obtained. FINDINGS: There is irregularity of the second metacarpal head with suspected postsurgical change. No osseous erosions identified. No acute fracture or dislocation. There is joint space narrowing with ma rginal osteophytosis involving the fifth DIP, third and fourth PIP joints, and first DIP joint consis tent with osteoarthritic changes. No soft tissue swelling or radiopaque foreign bodies. 1. IMPRESSION: 2. No acute osseous pathology. No osseous erosions. 3. Suspected postsurgical changes of the second metatarsal head. 4. Mild to moderate osteoarthritic changes.
== END | disposition home or self-care (01) ==
LOC: RADCTMAIN 10:33
PROVIDERS: ATTEND Family Medicine
DX: M19.042 Primary osteoarthritis, left hand (principal); M25.442 Effusion, left hand

== ENCOUNTER → 2023-10-29 | Outpatient (CLI) | payer MEDICARE ==
--- NOTE | 2023-11-23 12:55 | CA ---
Transthoracic Echo Report Name: Hiro Lin Age: 73 Gender: F : 1950 Exam Date: 10/29/2023 08:11 Exam Location: [facility] Ht (in): 72 Wt (lb): 172 Ordering Physician: Attending/Referring Phys: Transplant Rn Millie Serrano RDCS Procedure CPT: Indications: Cardiac Hx: Technical Quality: Poor Contrast 1: Total Dose (mL): Contrast 2: Total Dose (mL): MEASUREMENTS (Male / Female) Normal Values FINDINGS Left Ventricle Left ventricular ejection fraction is estimated at 55-60 %. Right Ventricle Right Atrium Left Atrium Mitral Valve Aortic Valve Tricuspid Valve Pulmonic Valve Pericardium Small pericardial effusion. Echogenic mass noted in the pericardium probably representing clot. Aorta CONCLUSIONS 1. Normal left ventricular size and systolic function 2. Small pericardial effusion was an echogenic area probably representing a clot. Previewed by: Dr. Danielle Jameson MD (Electronically Signed) Final Date: 29 October 2023 09:41
== END | disposition home or self-care (01) ==
LOC: LABPRL 12:00
DX: J90 Pleural effusion, not elsewhere classified (principal)
CPT/HCPCS: 93308

== ENCOUNTER 2023-11-03 09:49 | Inpatient (IN) | payer MEDICARE ==
[2023-11-03 10:23] LABS: Anisocytosis Slight; Basophils % (A) 0 %; Eosinophils # (A) 0.1 k/uL (0-0.7); Eosinophils % (A) 1 %; HGB 9.1 gm/dL (13.0-17.5); Hypochromasia Slight; Lymphocytes # (A) 0.9 k/uL (1.0-4.8); Lymphocytes % (A) 21 %; MCH 34.4 pg (25.0-35.0); MCHC 33.8 g/dL (31.0-37.0); MCV 101.8 fL (80.0-100.0); Macrocytosis Moderate; Mean Platelet Volume 8.6; Monocytes # (A) 0.4 k/uL (0-1.0); Monocytes % (A) 9 %; Neutrophils # (A) 2.8 k/uL (1.3-7.7); Neutrophils % (A) 65 %; Platelet Count 326 k/uL (150-450); RBC 2.66 m/uL (4.30-5.90); RDW 17.7 % (11.5-15.5); WBC 4.3 k/uL (3.8-10.6)
[2023-11-03 10:25] LABS: Appearance,Urine Clear (Clear); Bilirubin,Urine Negative (Negative); Blood,Urine Negative (Negative); Color,Urine Yellow; Glucose,Urine (UA) Negative (Negative); Ketones,Urine Negative (Negative); Leukocyte Esterase,Urine Negative (Negative); Nitrite,Urine Negative (Negative); Protein,Urine Trace (Negative); Specific Gravity,Urine 1.018 (1.001-1.035); Urobilinogen,Urine <2.0 mg/dL (<2.0)
--- NOTE | 2023-11-03 10:25 | XR ---
EXAMINATION TYPE: XR chest 2V DATE OF EXAM: 11/03/2023 COMPARISON: 11/01/2023 TECHNIQUE: PA and lateral views submitted. HISTORY: Chest pain FINDINGS: The lungs are clear and there is no pneumothorax, pleural effusion, or focal pneumonia. Heart size is enlarged but no overt failure. Atherosclerotic change aorta. Osseous structures intact. IMPRESSION: 1. No acute process.
[2023-11-03 10:35] LABS: Partial Thromboplastin Time 23.8 sec (22.0-30.0); Prothrombin Time 10.8 sec (10.0-12.5)
[2023-11-03] MEDS: ASPIRIN 81 MG PO STA (10:36)
[2023-11-03] MEDS: SODIUM CHLORIDE 0.9% 1,000 ML IV STA ×2 (10:36→11:37)
[2023-11-03 10:37] LABS: ALT 72 U/L (4-49); AST 57 U/L (17-59); African American GFR (CKD) >90 (>60 ml/min/1.73 sqM); Albumin 3.7 g/dL (3.5-5.0); Alkaline Phosphatase 76 U/L (38-126); Anion Gap 8 mmol/L; Blood Urea Nitrogen 12 mg/dL (9-20); Carbon Dioxide 23 mmol/L (22-30); Chloride 108 mmol/L (98-107); Glucose 121 mg/dL (74-99); Lipase 896 U/L (23-300); Magnesium 1.9 mg/dL (1.6-2.3); Non-African American GFR(CKD) >90 (>60 ml/min/1.73 sqM); Potassium 3.9 mmol/L (3.5-5.1); Sodium 139 mmol/L (137-145); Total Protein 6.6 g/dL (6.3-8.2)
[2023-11-03] MEDS: DEXTROSE 5% IN WATER 100 ML with AMIODARONE 150 MG IV ONE (10:37)
[2023-11-03 10:46] LABS: NT-Pro-B-Type Natriuretic Pept 4620 pg/mL
[2023-11-03] MEDS: AMIODARONE 360 MG in DEXTROSE 5% IN WATER 200 ML IV ONE (10:59)
[2023-11-03] MEDS ORDERED: NALOXONE 0.4 MG/ML 1 ML VIAL IV PRN (11:20)
--- NOTE | 2023-11-03 11:23 | ED ---
General Adult HPI - General Chief complaint: Arrhythmia/Palpitations Stated complaint: afib Time Seen by Provider: 11/03/23 09:54 Source: patient, RN notes reviewed, old records reviewed Mode of arrival: ambulatory Limitations: no limitations - History of Present Illness Initial comments: Patient is a 73-year-old male who presents emergency department for new onset atrial fibrillation. Sent by his hospice plan administrator Dr. Franklin who called ahead with plan for the patient. Patient recently had stent placed within the last 7 to 10 days and required a pericardial drain and had a small pneumothorax. Also had pleural effusions at that time. Was discharged home a few days ago and presented for follow-up with Dr. Franklin for shortness of breath and found to be in new onset atrial fibrillation with RVR. Sent here for admission. Dr. Franklin requested patient be placed on amiodarone drip, as well as heparin drip as long as the patient's hemoglobin level is stable as patient did lose a lot of blood during the previous procedure and required blood transfusion at that time. Patient endorses mild shortness of breath with palpitations. No obvious chest pain. No nausea or vomiting. Presents for further evaluation. - Related Data Home Medications Medication Instructions Recorded Confirmed No Known Home Medications 11/03/23 11/03/23 Allergies Allergy/AdvReac Type Severity Reaction Status Date / Time fluoride Allergy Swelling Verified 11/03/23 11:59 in mouth, itching, rash Penicillins Allergy Rash/Hives Verified 11/03/23 11:59 propoxyphene Allergy Itching Verified 11/03/23 11:59 [From Darvocet-N] ibuprofen AdvReac Abdominal Verified 11/03/23 11:59 Pain/gas Review of Systems ROS Statement: Those systems with pertinent positive or pertinent negative responses have been documented in the HPI. Review of Systems: CONST: Denies fever EYES: Denies blurry vision ENT: Denies nasal congestion C/V: Denies Chest pain RESP: Endorses dyspnea GI: Denies abdominal pain : Denies dysuria SKIN: Denies rash. MSK: Denies joint pain. NEURO: Denies headache ROS Other: All systems not noted in ROS Statement are negative. Past Medical History Past Medical History: Hyperlipidemia, Osteoarthritis (OA) Additional Past Medical History / Comment(s): bowel obs w/necrosis, bowel obs r/t adhesions, WBC LOW History of Any Multi-Drug Resistant Organisms: None Reported Past Surgical History: Heart Catheterization With Stent Additional Past Surgical History / Comment(s): steven thumb,steven elbows,steven shoulders,steven inguinal hernia,femoral hernia,laparotomy w/ lysis of adhesions, BILAT FOOT SX, COLONOSCOPY, Past Anesthesia/Blood Transfusion Reactions: Postoperative Nausea & Vomiting (PONV) Additional Past Anesthesia/Blood Transfusion Reaction / Comment(s): no hx blood transfusion Past Psychological History: No Psychological Hx Reported Smoking Status: Former smoker Past Alcohol Use History: Daily Past Drug Use History: Marijuana - Past Family History Mother Family Medical History: Cancer, Deep Vein Thrombosis (DVT) Additional Family Medical History / Comment(s): melanoma Father Family Medical History: Cancer Additional Family Medical History / Comment(s): prostate cancer Brother(s) Family Medical History: Cancer Additional Family Medical History / Comment(s): multiple myeloma General Exam - General Exam Comments Initial Comments: General: Appears in no acute distress. HEAD: Normal with no signs of head trauma. EYES: PERRLA, EOMI, conjunctiva normal, no discharge. ENT: Hearing grossly intact, normal oropharynx. RESPIRATORY: Clear breath sounds bilaterally. No wheezes, rales, or rhonchi. C/V: Irregular rate and rhythm. S1 and S2 auscultated. No peripheral edema that is significant. Peripheral pulses 2+ intact throughout. ABD: Abd is soft, nontender, nondistended EXT: Normal range of motion, no obvious deformity SKIN: No rashes or lesions observed on exposed skin. NEURO: Alert and oriented x 4. Limitations: no limitations Course Vital Signs 11/03/23 11/03/23 11/03/23 09:50 10:38 11:00 Temperature 97.9 F Pulse Rate 118 H 154 H 142 H Respiratory 24 20 18 Rate Blood Pressure 171/69 126/98 129/99 O2 Sat by Pulse 99 98 99 Oximetry 11/03/23 11:38 Temperature Pulse Rate 144 H Respiratory 20 Rate Blood Pressure 136/95 O2 Sat by Pulse 99 Oximetry Medical Decision Making - Medical Decision Making Was pt. sent in by a medical professional or institution (, PA, IDENTITY ACCESS MANAGEMENT ARCHITECT, urgent care, hospital, or [place] health [place] facility...) When possible be specific @ -Sent by his hospice plan administrator Dr. Franklin for admission for new onset A-fib with RVR. Plan for cardioversion tomorrow. Requested n.p.o. after midnight. Did you speak to anyone other than the patient for history (EMS, parent, family, police, friend...)? What history was obtained from this source @ -No Did you review nursing and triage notes (agree or disagree)? Why? @ -I reviewed and agree with nursing and triage notes Were old charts reviewed (outside hosp., previous admission, EMS record, old EKG, old radiological studies, urgent care reports/EKG's, [place] health care facility records)? Report findings @ -No old charts were reviewed Differential Diagnosis (chest pain, altered mental status, abdominal pain women, abdominal pain men, vaginal bleeding, weakness, fever, dyspnea, syncope, headache, dizziness, GI bleed, back pain, seizure, CVA, palpatations, mental health, musculoskeletal)? @ -Differential Dyspnea: Coronary syndrome, arrhythmia, tamponade, asthma, COPD, pulmonary embolism, pneumonia, pneumothorax, pulmonary effusion, anaphylaxis, diabetic ketoacidosis, flailed chest, pulmonary contusion, diaphragmatic rupture, anemia, neuromuscular, this is not meant to be an all-inclusive list. EKG interpreted by me (3pts min.). @ -As above X-rays interpreted by me (1pt min.). @ -Chest x-ray reveals no obvious acute cardiopulmonary process. CT interpreted by me (1pt min.). @ -None done U/S interpreted by me (1pt. min.). @ -None done What testing was considered but not performed or refused? (CT, X-rays, U/S, labs)? Why? @ -None What meds were considered but not given or refused? Why? @ -None Did you discuss the management of the patient with other professionals (professionals i.e. , PA, IDENTITY ACCESS MANAGEMENT ARCHITECT, lab, RT, psych nurse, criminal justice social worker, dental coordinator, teacher, program officer, geriatric case manager)? Give summary @ -Discussed with patient's hospice plan administrator, Dr. Franklin. Requested amiodarone infusion, heparin infusion after confirming patient's hemoglobin is stable which it is. I did relay the patient's hemoglobin 9.[address] Franklin and he was in agreement plan for initiation of heparin. I do not have prior laboratory results as patient was admitted during paper chart time when the computer system was hacked. Plan is for cardioversion tomorrow and patient will be made n.p.o. after midnight. I spoke with the admitting team, Dr. Ames who accepted the admission. Was smoking cessation discussed for >3mins.? @ -No Was critical care preformed (if so, how long)? @ -Yes, 38 minutes. Were there social determinants of health that impacted care today? How? (Homelessness, low income, unemployed, alcoholism, drug addiction, transportation, low edu. Level, literacy, decrease access to med. care, nursing home, rehab)? @ -No Was there de-escalation of care discussed even if they declined (Discuss DNR or withdrawal of care, Hospice)? DNR status @ -No What co-morbidities impacted this encounter? (DM, HTN, Smoking, COPD, CAD, Cancer, CVA, ARF, Chemo, Hep., AIDS, mental health diagnosis, sleep apnea, mor bid obesity)? @ -CAD, recent cardiac stenting. Was patient admitted / discharged? Hospital course, mention meds given and route, prescriptions, significant lab abnormalities, going to OR and other pe rtinent info. @ -Based on patient's presentation and physical exam, presents with new onset A-fib with RVR. Following Dr. Franklin's instructions, patient is placed on amiodarone. Cardiac workup will be obtained. Vital signs other than the A-fib with RVR are within acceptable limits. Chest x-ray shows no obvious acute cardiopulmonary process. Patient's laboratory studies remarkable for hemoglobin 9.1 which is improved after discussion with Dr. Nelson offered patient will be initiated on heparin therapy. Patient does have an elevated troponin of 0.711 likely secondary to recent cardiac instrumentation we will continue to trend. This was also relayed to Dr. Franklin and he was in agreement the plan. BNP is slightly elevated 4600. Lipase slightly elevated to 800. Remainder the workup unremarkable. On reevaluation, I discussed the results with the patient. He will be admitted. He was in agreement with this plan. Resting comfortably at that time. Cardiology consulted. I spoke with Dr. Ames of [facility] who accepted the admission. Repeat CBC ordered for 6 PM to check, patient's hemoglobin after discussion with Dr. Franklin. Undiagnosed new problem with uncertain prognosis? @ -No Drug Therapy requiring intensive monitoring for toxicity (Heparin, Nitro, In sulin, Cardizem)? @ -Heparin Were any procedures done? @ -No Diagnosis/symptom? @ -New onset atrial fibrillation with RVR, elevated troponin Acute, or Chronic, or Acute on Chronic? @ -Acute Uncomplicated (without systemic symptoms) or Complicated (systemic symptoms)? @ -Complicated Side effects of treatment? @ -No Exacerbation, Progression, or Severe Exacerbation? @ -No Poses a threat to life or bodily function? How? (Chest pain, [place], [place], pneumonia, PE, COPD, DKA, ARF, appy, cholecystitis, CVA, Diverticulitis, Homicidal, Suicidal, threat to staff... and all critical care pts) @ -Potentially, yes - Lab Data Result diagrams: 11/03/23 10:11 11/03/23 10:11 Lab Results 11/03/23 11/03/23 11/03/23 Range/Units 10:11 10:11 10:11 WBC 4.3 (3.8-10.6) k/uL RBC 2.66 L (4.30-5.90) m/uL Hgb 9.1 L (13.0-17.5) gm/dL Hct 27.0 L (39.0-53.0) % MCV 101.8 H (80.0-100.0) fL MCH 34.4 (25.0-35.0) pg MCHC 33.8 (31.0-37.0) g/dL RDW 17.7 H (11.5-15.5) % Plt Count 326 (150-450) k/uL MPV 8.6 Neutrophils % 65 % Lymphocytes % 21 % Monocytes % 9 % Eosinophils % 1 % Basophils % 0 % Neutrophils # 2.8 (1.3-7.7) k/uL Lymphocytes # 0.9 L (1.0-4.8) k/uL Monocytes # 0.4 (0-1.0) k/uL Eosinophils # 0.1 (0-0.7) k/uL Basophils # 0.0 (0-0.2) k/uL Hypochromasia Slight Anisocytosis Slight Macrocytosis Moderate PT 10.8 (10.0-12.5) sec INR 1.0 (<1.2) APTT 23.8 (22.0-30.0) sec Sodium 139 (137-145) mmol/L Potassium 3.9 (3.5-5.1) mmol/L Chloride 108 H (98-107) mmol/L Carbon Dioxide 23 (22-30) mmol/L Anion Gap 8 mmol/L BUN 12 (9-20) mg/dL Creatinine 0.75 (0.66-1.25) mg/dL Est GFR (CKD-EPI)AfAm >90 (>60 ml/min/1.73 sqM) Est GFR (CKD-EPI)NonAf >90 (>60 ml/min/1.73 sqM) Glucose 121 H (74-99) mg/dL Calcium 9.0 (8.4-10.2) mg/dL Magnesium 1.9 (1.6-2.3) mg/dL Total Bilirubin 1.0 (0.2-1.3) mg/dL AST 57 (17-59) U/L ALT 72 H (4-49) U/L Alkaline Phosphatase 76 (38-126) U/L Troponin I (0.000-0.034) ng/mL NT-Pro-B Natriuret Pep 4620 pg/mL Total Protein 6.6 (6.3-8.2) g/dL Albumin 3.7 (3.5-5.0) g/dL Lipase 896 H (23-300) U/L Urine Color Urine Appearance (Clear) Urine pH (5.0-8.0) Ur Specific [place] (1.001-1.035) Urine Protein (Negative) Urine Glucose (UA) (Negative) Urine Ketones (Negative) Urine Blood (Negative) Urine Nitrite (Negative) Urine Bilirubin (Negative) Urine Urobilinogen (<2.0) mg/dL Ur Leukocyte Esterase (Negative) 11/03/23 11/03/23 Range/Units 10:11 10:11 WBC (3.8-10.6) k/uL RBC (4.30-5.90) m/uL Hgb (13.0-17.5) gm/dL Hct (39.0-53.0) % MCV (80.0-100.0) fL MCH (25.0-35.0) pg MCHC (31.0-37.0) g/dL RDW (11.5-15.5) % Plt Count (150-450) k/uL MPV Neutrophils % % Lymphocytes % % Monocytes % % Eosinophils % % Basophils % % Neutrophils # (1.3-7.7) k/uL Lymphocytes # (1.0-4.8) k/uL Monocytes # (0-1.0) k/uL Eosinophils # (0-0.7) k/uL Basophils # (0-0.2) k/uL Hypochromasia Anisocytosis Macrocytosis PT (10.0-12.5) sec INR (<1.2) APTT (22.0-30.0) sec Sodium (137-145) mmol/L Potassium (3.5-5.1) mmol/L Chloride (98-107) mmol/L Carbon Dioxide (22-30) mmol/L Anion Gap mmol/L BUN (9-20) mg/dL Creatinine (0.66-1.25) mg/dL Est GFR (CKD-EPI)AfAm (>60 ml/min/1.73 sqM) Est GFR (CKD-EPI)NonAf (>60 ml/min/1.73 sqM) Glucose (74-99) mg/dL Calcium (8.4-10.2) mg/dL Magnesium (1.6-2.3) mg/dL Total Bilirubin (0.2-1.3) mg/dL AST (17-59) U/L ALT (4-49) U/L Alkaline Phosphatase (38-126) U/L Troponin I 0.711 H* (0.000-0.034) ng/mL NT-Pro-B Natriuret Pep pg/mL Total Protein (6.3-8.2) g/dL Albumin (3.5-5.0) g/dL Lipase (23-300) U/L Urine Color Yellow Urine Appearance Clear (Clear) Urine pH 6.0 (5.0-8.0) Ur Specific [place] 1.018 (1.001-1.035) Urine Protein Trace H (Negative) Urine Glucose (UA) Negative (Negative) Urine Ketones Negative (Negative) Urine Blood Negative (Negative) Urine Nitrite Negative (Negative) Urine Bilirubin Negative (Negative) Urine Urobilinogen <2.0 (<2.0) mg/dL Ur Leukocyte Esterase Negative (Negative) - EKG Data -: EKG Interpreted by Me EKG Comments: 12-lead Electrocardiogram Interpretation Note EKG was reviewed and interpreted by myself. 12-lead ECG performed at 0959 is interpreted by me as revealing A-fib with RVR at a rate of 154 beats per minute. [place] is normal. QRS duration is 78 ms, QTc is 3 and 35 ms.. There were no ST or T wave abnormalities to suggest myocardial ischemia or injury. R wave progression across the precordium was satisfactory. By my interpretation this EKG is non-diagnostic for acute ischemia. Critical Care Time Critical Care Time: Yes Total Critical Care Time: 38 Disposition Clinical Impression: New onset atrial fibrillation, Atrial fibrillation with RVR, Elevated troponin Disposition: ADMITTED IP TO THIS HOSP Condition: Stable Time of Disposition: 11:23
[2023-11-03] MEDS: HEPARIN SODIUM 1,000 UN/ML (10ML VL) IV ONE (11:35)
[2023-11-03] MEDS: HEPARIN SOD,PORK IN 0.45% NACL 25,000 UNIT in 0.45% NACL 1 250ML.BAG IV SCH (11:36)
--- NOTE | 2023-11-03 13:39 | P.CRDCN ---
History of Present Illness Consult date: 11/03/23 Consult reason: atrial fibrillation History of present illness: Coronary artery disease status post recent myocardial infarction cath and angioplasty hypertension dyslipidemia comes to hospital with atrial fibrillation with rapid ventricular rate. Patient was recently in the hospital following an acute coronary syndrome cath and angioplasty. I do not have details of that admission because of the recent hacking of the [employer] system. He was seen in our office today and subsequently sent to the ER because of palpitations and chest discomfort that the patient presented with. He was in atrial fibrillation with rapid ventricular rate. Patient is currently on intravenous amiodarone. He is on IV heparin. I am resuming the metoprolol that he was on at home. Along with aspirin Lipitor and Brilinta that he was on. If the patient does not convert to sinus rhythm he will undergo cardioversion tomorrow. Past medical history significant for coronary artery disease and dyslipidemia and hypertension allergic to penicillin Darvocet and ibuprofen medications at home are as charted family history is negative for premature coronary artery disease social history is negative for smoking EtOH abuse or drug abuse review of systems: 14 out of 14 review of systems has been performed pertinent side as documented On exam: Patient is comfortable at rest vital signs are stable there is a regular venous distention carotid upstroke is normal there is no bruit chest exam reveals good air entry bilaterally there are no crackles or rhonchi heart exam reveals first and second heart sounds are regular rhythm no murmur no rub abdomen is soft nontender exam extremities did not reveal any edema peripheral pulses are felt Labs show hemoglobin is 9.1 platelet count is 326 potassium is 3.9 creatinine is 0.75 Assessment and plan: Persistent atrial fibrillation with rapid ventricular rate Coronary artery disease status post recent angioplasty I will continue the patient on heparin and amiodarone resume the beta-cierra Will obtain a 2D echo If the patient does not convert to sinus rhythm he will undergo cardioversion Past Medical History Past Medical History: Hyperlipidemia, Osteoarthritis (OA) Additional Past Medical History / Comment(s): bowel obs w/necrosis, bowel obs r/t adhesions, WBC LOW History of Any Multi-Drug Resistant Organisms: None Reported Past Surgical History: Heart Catheterization With Stent Additional Past Surgical History / Comment(s): steven thumb,steven elbows,steven shoul ders,steven inguinal hernia,femoral hernia,laparotomy w/ lysis of adhesions, BILAT FOOT SX, COLONOSCOPY, Past Anesthesia/Blood Transfusion Reactions: Postoperative Nausea & Vomiting (PONV) Additional Past Anesthesia/Blood Transfusion Reaction / Comment(s): no hx blood transfusion Past Psychological History: No Psychological Hx Reported Smoking Status: Former smoker Past Alcohol Use History: Daily Past Drug Use History: Marijuana - Past Family History Mother Family Medical History: Cancer, Deep Vein Thrombosis (DVT) Additional Family Medical History / Comment(s): melanoma Father Family Medical History: Cancer Additional Family Medical History / Comment(s): prostate cancer Brother(s) Family Medical History: Cancer Additional Family Medical History / Comment(s): multiple myeloma Medications and Allergies Home Medications Medication Instructions Recorded Confirmed Type No Known Home Medications 11/03/23 11/03/23 History Allergies Allergy/AdvReac Type Severity Reaction Status Date / Time fluoride Allergy Swelling Verified 11/03/23 11:59 in mouth, itching, rash Penicillins Allergy Rash/Hives Verified 11/03/23 11:59 propoxyphene Allergy Itching Verified 11/03/23 11:59 [From Brayan-N] ibuprofen AdvReac Abdominal Verified 11/03/23 11:59 Pain/gas Physical Exam Vitals: Vital Signs Temp Pulse Resp BP Pulse Ox 11/03/23 11:38 144 H 20 136/95 99 11/03/23 11:00 142 H 18 129/99 99 11/03/23 10:38 154 H 20 126/98 98 11/03/23 09:50 97.9 F 118 H 24 171/69 99 Intake and Output 11/02/23 11/03/23 11/03/23 22:59 06:59 14:59 Other: Weight 81.647 kg Results 11/03/23 10:11 11/03/23 10:11 Cardiac Enzymes 11/03/23 11/03/23 Range/Units 10:11 10:11 AST 57 (17-59) U/L Troponin I 0.711 H* (0.000-0.034) ng/mL Coagulation 11/03/23 Range/Units 10:11 PT 10.8 (10.0-12.5) sec APTT 23.8 (22.0-30.0) sec CBC 11/03/23 Range/Units 10:11 WBC 4.3 (3.8-10.6) k/uL RBC 2.66 L (4.30-5.90) m/uL Hgb 9.1 L (13.0-17.5) gm/dL Hct 27.0 L (39.0-53.0) % Plt Count 326 (150-450) k/uL Comprehensive Metabolic Panel 11/03/23 Range/Units 10:11 Sodium 139 (137-145) mmol/L Potassium 3.9 (3.5-5.1) mmol/L Chloride 108 H (98-107) mmol/L Carbon Dioxide 23 (22-30) mmol/L BUN 12 (9-20) mg/dL Creatinine 0.75 (0.66-1.25) mg/dL Glucose 121 H (74-99) mg/dL Calcium 9.0 (8.4-10.2) mg/dL AST 57 (17-59) U/L ALT 72 H (4-49) U/L Alkaline Phosphatase 76 (38-126) U/L Total Protein 6.6 (6.3-8.2) g/dL Albumin 3.7 (3.5-5.0) g/dL Current Medications Generic Name Dose Route Start Last Admin Trade Name Freq PRN Reason Stop Dose Admin Aspirin 81 mg 11/04/23 09:00 Aspirin 81 Mg PO DAILY [facility] Atorvastatin Calcium 40 mg 11/03/23 13:30 Atorvastatin 40 Mg Tab PO DAILY [facility] Ezetimibe 10 mg 11/03/23 13:30 Ezetimibe 10 Mg Tab PO DAILY [facility] Heparin Sodium (Porcine) 0 unit 11/03/23 11:19 Heparin Sodium 1,000 Un/Ml (10ml Vl) IV PER PROTOCOL PRN Low PTT Protocol Amiodarone HCl 360 mg/ 200 mls @ 33.333 mls/hr 11/03/23 10:15 11/03/23 10:59 Dextrose/Water IV 11/03/23 16:14 1 mg/min .Q6H ONE 33.333 mls/hr Administration Protocol 1 MG/MIN Amiodarone HCl 450 mg/ 250 mls @ 16.667 mls/hr 11/03/23 16:00 Dextrose/Water IV 11/04/23 09:59 .Q15H SANDEEP Protocol 0.5 MG/MIN Heparin Sodium/Sodium Chloride 250 mls @ 9.798 mls/hr 11/03/23 11:30 11/03/23 11:36 25,000 unit/ Sodium Chloride IV 12 units/kg/hr .Q24H SANDEEP 9.798 mls/hr Administration Protocol 12 UNITS/KG/HR Sodium Chloride 1,000 mls @ 75 mls/hr 11/03/23 11:20 11/03/23 11:37 Saline 0.9% IV 11/04/23 00:39 75 mls/hr .[id number] STA Administration Metoprolol Succinate 50 mg 11/03/23 13:30 Metoprolol Succinate (Er) 50 Mg Tab.Er.24h PO DAILY SANDEEP Naloxone HCl 0.2 mg 11/03/23 11:20 Naloxone 0.4 Mg/Ml 1 Ml Vial IV Q2M PRN Opioid Reversal Ticagrelor 90 mg 11/03/23 12:45 Ticagrelor 90 Mg Tab PO BID SANDEEP Intake and Output 11/02/23 11/03/23 11/03/23 22:59 06:59 14:59 Other: Weight 81.647 kg Patient Weight 11/04/23 06:59 Weight 81.647 kg 11/03/23 10:11 11/03/23 10:11
[2023-11-03] MEDS: METOPROLOL SUCCINATE (ER) 50 MG TAB.ER.24H PO SCH (13:45)
[2023-11-03] MEDS: TICAGRELOR 90 MG TAB PO SCH (13:45)
[2023-11-03] MEDS: ATORVASTATIN 40 MG TAB PO SCH (13:45)
[2023-11-03] MEDS: EZETIMIBE 10 MG TAB PO SCH (15:36)
[2023-11-03 17:51] LABS: Anisocytosis Slight; Basophils % (A) 1 %; Eosinophils # (A) 0.1 k/uL (0-0.7); Eosinophils % (A) 1 %; HCT 27.1 % (39.0-53.0); HGB 8.7 gm/dL (13.0-17.5); Hypochromasia Moderate; Lymphocytes % (A) 23 %; MCH 34.9 pg (25.0-35.0); MCHC 32.2 g/dL (31.0-37.0); MCV 108.6 fL (80.0-100.0); Macrocytosis Marked; Monocytes # (A) 0.4 k/uL (0-1.0); Monocytes % (A) 8 %; Neutrophils # (A) 2.7 k/uL (1.3-7.7); Neutrophils % (A) 63 %; Platelet Count 264 k/uL (150-450); Poikilocytosis Slight; RDW 18.5 % (11.5-15.5); WBC 4.3 k/uL (3.8-10.6)
--- NOTE | 2023-11-03 18:06 | P.HPIM ---
History of Present Illness H&P Date: 11/03/23 73-year-old male with past medical history of anemia, recent IN, and hyperlipidemia presents to the ER with shortness of breath and palpitations. Patient states this started last night was exerting himself. He attempted resting to see if it would subside but the rapid heart rate did not improve. At this time he denies any chest pain or shortness of breath. Patient was recently admitted for IN status post stent placement and discharged on Thursday on Brilinta, aspirin, and iron which he has not filled the prescription for. PMHx: recent IN with stent placement, hyperlipidemia SHx: Daily drinker couple of beers and glasses of wine, previous smoker quit in 1979 (2-1/2 packs prior), marijuana daily edibles, no other illicit drugs FHx: Mother had diabetes and melanoma, father had prostate cancer and hypertension Medications: Brilinta, aspirin, Lipitor, Zetia, iron Allergies: Fluoride, penicillin ED documentation reviewed and case discussed with ED provider. Review of systems: Pertinent positives and negatives as discussed in HPI, a complete review of systems was performed and all other systems are negative. Physical examination: Vital signs reviewed General: non toxic, jaundiced, no distress, appears older than stated age, normal weight Derm: no unusual rashes/lesions, warm Head: atraumatic, normocephalic, symmetric Eyes: EOMI, periorbital edema, anicteric sclera, pupils equal round reactive to light ENT: Nose and ears atraumatic Neck: No cervical lymphadenopathy, trachea midline, supple Mouth: no lip lesion, mucus membranes moist Cardiovascular: S1S2 reg, no murmur, positive dorsalis pedis pulse bilateral, 2+ bilateral lower extremity pitting edema Lungs: CTA bilateral, no rhonchi, no rales, no accessory muscle use Abdominal: soft, nontender to palpation, no guarding Ext: muscle strength 5 out of 5 in all 4 extremities grossly, no gross muscle atrophy, no contractures, Neuro: CN II-XI grossly intact, no gross focal neuro deficits Psych: Alert, oriented, appropriate affect Imaging: In the emergency room a chest x-ray was unremarkable. Data Review: Laboratory evaluation are as follows: WBC 4.3, hemoglobin 9.1, MCV 101.8, platelets 326, PT 10.8, INR 1, PTT 23.8. Sodium 139, potassium 3.9, chloride 108, bicarb 23, BUN 12, creatinine 0.75 glucose 121. Troponin was 0.711. BNP was 4620. Lipase was 896. UA showed some protein but otherwise unremarkable. EKG showed A-fib with RVR. Assessment: New onset atrial fibrillation, A-fib with RVR, elevated troponin -Continue amiodarone, Toprol XL for rate control Cardiology consulted Patient kept NPO for possible cardioversion tomorrow Hyperlipidemia Continue Lipitor, Zetia Recent IN with stent placement Continue aspirin, Brilinta, heparin drip Will hold Eliquis for now DVT prophylaxis: IPCDs The patient is admitted with an anticipated less than 2 midnight stay for evaluation of new onset A-fib with RVR CODE STATUS: Full Discussed with: Patient Anticipated discharge place: Home I saw and evaluated the patient during the sorensen and critical portions of this encounter, and discussed the case in detail with the resident author of this note, I agree with the Assessment and Plan, and my changes, if any, are highlighted in blue. Past Medical History Past Medical History: Hyperlipidemia, Osteoarthritis (OA) Additional Past Medical History / Comment(s): bowel obs w/necrosis, bowel obs r/t adhesions, WBC LOW History of Any Multi-Drug Resistant Organisms: None Reported Past Surgical History: Heart Catheterization With Stent Additional Past Surgical History / Comment(s): steven thumb,steven elbows,steven shoulders,steven inguinal hernia,femoral hernia,laparotomy w/ lysis of adhesions, BILAT FOOT SX, COLONOSCOPY, Past Anesthesia/Blood Transfusion Reactions: Postoperative Nausea & Vomiting (PONV) Additional Past Anesthesia/Blood Transfusion Reaction / Comment(s): no hx blood transfusion Past Psychological History: No Psychological Hx Reported Smoking Status: Former smoker Past Alcohol Use History: Daily Past Drug Use History: Marijuana - Past Family History Mother Family Medical History: Cancer, Deep Vein Thrombosis (DVT) Additional Family Medical History / Comment(s): melanoma Father Family Medical History: Cancer Additional Family Medical History / Comment(s): prostate cancer Brother(s) Family Medical History: Cancer Additional Family Medical History / Comment(s): multiple myeloma Medications and Allergies Home Medications Medication Instructions Recorded Confirmed Type No Known Home Medications 11/03/23 11/03/23 History Allergies Allergy/AdvReac Type Severity Reaction Status Date / Time fluoride Allergy Swelling Verified 11/03/23 11:59 in mouth, itching, rash Penicillins Allergy Rash/Hives Verified 11/03/23 11:59 propoxyphene Allergy Itching Verified 11/03/23 11:59 [From Darvocet-N] ibuprofen AdvReac Abdominal Verified 11/03/23 11:59 Pain/gas Physical Exam Osteopathic Statement: *. No significant issues noted on an osteopathic structural exam other than those noted in the History and Physical/Consult. Vitals: Vital Signs Temp Pulse Resp BP Pulse Ox 11/03/23 11:38 144 H 20 136/95 99 11/03/23 11:00 142 H 18 129/99 99 11/03/23 10:38 154 H 20 126/98 98 11/03/23 09:50 97.9 F 118 H 24 171/69 99 Intake and Output 11/02/23 11/03/23 11/03/23 22:59 06:59 14:59 Other: Weight 81.647 kg Results CBC & Chem 7: 11/03/23 17:29 11/03/23 10:11 Labs: Abnormal Lab Results - Last 24 Hours (Table) 11/03/23 11/03/23 11/03/23 Range/Units 10:11 10:11 10:11 RBC 2.66 L (4.30-5.90) m/uL Hgb 9.1 L (13.0-17.5) gm/dL Hct 27.0 L (39.0-53.0) % MCV 101.8 H (80.0-100.0) fL RDW 17.7 H (11.5-15.5) % Lymphocytes # 0.9 L (1.0-4.8) k/uL Chloride 108 H (98-107) mmol/L Glucose 121 H (74-99) mg/dL ALT 72 H (4-49) U/L Troponin I 0.711 H* (0.000-0.034) ng/mL Lipase 896 H (23-300) U/L Urine Protein (Negative) 11/03/23 Range/Units 10:11 RBC (4.30-5.90) m/uL Hgb (13.0-17.5) gm/dL Hct (39.0-53.0) % MCV (80.0-100.0) fL RDW (11.5-15.5) % Lymphocytes # (1.0-4.8) k/uL Chloride (98-107) mmol/L Glucose (74-99) mg/dL ALT (4-49) U/L Troponin I (0.000-0.034) ng/mL Lipase (23-300) U/L Urine Protein Trace H (Negative)
[2023-11-03] MEDS: AMIODARONE 450 MG in DEXTROSE 5% IN WATER 250 ML IV SCH (18:46)
[2023-11-04] MEDS: HEPARIN SODIUM 1,000 UN/ML (10ML VL) IV PRN (00:18)
[2023-11-04 07:32] LABS: Prothrombin Time 11.4 sec (10.0-12.5)
[2023-11-04 07:34] LABS: Anisocytosis Slight; HCT 24.6 % (39.0-53.0); HGB 7.9 gm/dL (13.0-17.5); Hypochromasia Slight; MCH 33.9 pg (25.0-35.0); MCV 105.9 fL (80.0-100.0); Macrocytosis Marked; Mean Platelet Volume 8.9; Platelet Count 267 k/uL (150-450); Poikilocytosis Slight; RBC 2.33 m/uL (4.30-5.90); RDW 18.2 % (11.5-15.5); WBC 4.5 k/uL (3.8-10.6)
[2023-11-04 07:35] LABS: ALT 56 U/L (4-49); AST 63 U/L (17-59); African American GFR (CKD) >90 (>60 ml/min/1.73 sqM); Alkaline Phosphatase 67 U/L (38-126); Anion Gap 6 mmol/L; Blood Urea Nitrogen 10 mg/dL (9-20); Calcium 8.6 mg/dL (8.4-10.2); Carbon Dioxide 24 mmol/L (22-30); Chloride 107 mmol/L (98-107); Glucose 132 mg/dL (74-99); Non-African American GFR(CKD) >90 (>60 ml/min/1.73 sqM); Potassium 3.8 mmol/L (3.5-5.1); Sodium 137 mmol/L (137-145); Total Bilirubin 0.9 mg/dL (0.2-1.3); Total Protein 5.8 g/dL (6.3-8.2)
[2023-11-04] MEDS: ASPIRIN 81 MG PO SCH (08:00)
[2023-11-04 08:11] LABS: Band Neutrophils % 2 %; Eosinophils # (M) 0.09 k/uL (0-0.7); Lymphocytes # (M) 1.22 k/uL (1.0-4.8); Metamyelocytes # (M) 0.05 k/uL (0); Metamyelocytes % 1 %; Monocytes # (M) 0.59 k/uL (0-1.0); Myelocytes # (M) 0.05 k/uL (0); Myelocytes % 1 %; Neutrophils % (M) 56 %; Nucleated Red Blood Cells 1 /100 WBC (0-0); Total Cells Counted 200
[2023-11-04] MEDS: AMIODARONE 200 MG TAB PO SCH (08:18)
--- NOTE | 2023-11-04 11:08 | P.DS ---
Providers Date of admission: 11/03/23 11:20 Discharge Diagnosis: New Onset Afib w/RVR, elevated troponin Hyperlipidemia Recent admission for NE with stent placement Hospital Course: 73-year-old male with past medical history of anemia, recent NE, and hyperlipidemia presents to the ER with shortness of breath and palpitations. Ramin jackson states this started last night was exerting himself. He attempted resting to see if it would subside but the rapid heart rate did not improve. At this time he denied any chest pain or shortness of breath. Patient was recently admitted for NE status post stent placement and discharged on Thursday on Brilinta, aspirin, and iron which he has not filled the prescription for. In the emergency room a chest x-ray was unremarkable. Laboratory evaluation was as follows: WBC 4.3, hemoglobin 9.1, MCV 101.8, platelets 326, PT 10.8, INR 1, PTT 23.8. Sodium 139, potassium 3.9, chloride 108, bicarb 23, BUN 12, creatinine 0.75 glucose 121. Troponin was 0.711. BNP was 4620. Lipase was 896. UA showed some protein but otherwise unremarkable. EKG showed A-fib with RVR. Patient was started on amiodarone and Cardizem drip. Cardiology was consulted. Patient was placed n.p.o. for possible cardioversion this morning, but converted back to sinus rhythm. Patient was examined this morning denies any chest pain shortness of breath any other complaints and is stable for discharge. Patient was counseled on importance of medication compliance with dual antiplatelet therapy. Patient is to follow-up outpatient with cardiology in 1 week. Patient was also advised about alcohol cessation. Patient was advised to continue aspirin, Brilinta, Eliquis for 2 weeks, after which he was advised to discontinue aspirin and continue with Brilinta and Eliquis. He should follow-up with cardiology in 1 week Pt seen and examined at bedside: Lying comfortably in bed in no acute distress excited for discharge. Vital signs reviewed and stable. General: non toxic, no distress, appears at stated age, normal weight Derm: no unusual rashes/lesions, warm Head: atraumatic, normocephalic, symmetric Eyes: EOMI, no lid lag, anicteric sclera, pupils equal round reactive to light ENT: Nose and ears atraumatic Neck: No cervical lymphadenopathy, trachea midline, supple Mouth: no lip lesion, mucus membranes moist Cardiovascular: S1S2 reg, no murmur, positive dorsalis pedis pulse bilateral, no edema Lungs: Decreased air entry bilaterally, no rhonchi, no rales, no accessory muscle use Abdominal: soft, nontender to palpation, no guarding Ext: muscle strength 5 out of 5 in all 4 extremities grossly, no gross muscle atrophy, no contractures, Neuro: CN II-XI grossly intact, no gross focal neuro deficits Psych: Alert, oriented, appropriate affect A total of 30 minutes were spent preparing this complex discharge summary. Patient was discharged on November 04, 2023 at 10:55 AM. I saw and evaluated the patient during the sorensen and critical portions of this encounter, and discussed the case in detail with the resident author of this note, I agree with the Assessment and Plan, and my changes, if any, are highlighted in blue. Attending physician: Nicole Ames MD Consults: 11/03/23 09:56 Consult Physician Routine Consulting Provider: [facility] Consult Reason/Comments: new onset afib. spoke with raffy Do you want consulting provider notified?: Yes Primary care physician: Orlando Amaya MD Patient Condition at Discharge: Stable Plan - Discharge Summary New Discharge Prescriptions: New Apixaban [Eliquis] 5 mg PO BID #180 tab Aspirin 81 mg PO DAILY #0 tab Ticagrelor [Brilinta] 90 mg PO BID 30 Days #60 tab Atorvastatin [Lipitor] 40 mg PO DAILY tab Metoprolol Succinate (ER) [Toprol XL] 50 mg PO DAILY 30 Days #30 tab Ezetimibe [Zetia] 10 mg PO DAILY tab Amiodarone [Cordarone] 200 mg PO DAILY #120 tab Discharge Medication List Amiodarone [Cordarone] 200 mg PO DAILY #120 tab 11/04/23 [Rx] Apixaban [Eliquis] 5 mg PO BID #180 tab 11/04/23 [Rx] Aspirin 81 mg PO DAILY #0 tab 11/04/23 [Rx] Atorvastatin [Lipitor] 40 mg PO DAILY tab 11/04/23 [Rx] Ezetimibe [Zetia] 10 mg PO DAILY tab 11/04/23 [Rx] Metoprolol Succinate (ER) [Toprol XL] 50 mg PO DAILY 30 Days #30 tab 11/04/23 [Rx] Ticagrelor [Brilinta] 90 mg PO BID 30 Days #60 tab 11/04/23 [Rx] Follow up Appointment(s)/Referral(s): Lj Franklin DO [STAFF PHYSICIAN] - 1 Week Orlando Amaya MD [Primary Care Provider] - 1-2 days Patient Instructions/Handouts: A-fib (Atrial Fibrillation) (GEN) Discharge Disposition: HOME SELF-CARE
--- NOTE | 2023-11-04 11:55 | P.PN ---
Subjective Progress Note Date: 11/04/23 Consult reason: atrial fibrillation History of present illness: Coronary artery disease status post recent myocardial infarction cath and angioplasty hypertension dyslipidemia comes to hospital with atrial fibrillation with rapid ventricular rate. Patient was recently in the hospital following an acute coronary syndrome cath and angioplasty. I do not have details of that admission because of the recent hacking of the [employer] system. He was seen in our office today and subsequently sent to the ER because of palpitations and chest discomfort that the patient presented with. He was in atrial fibrillation with rapid ventricular rate. Patient is currently on intravenous amiodarone. He is on IV heparin. I am resuming the metoprolol that he was on at home. Along with aspirin Lipitor and Brilinta that he was on. If the patient does not convert to sinus rhythm he will undergo cardioversion tomorrow. Past medical history significant for coronary artery disease and dyslipidemia and hypertension allergic to penicillin Darvocet and ibuprofen medications at home are as charted family history is negative for premature coronary artery disease social history is negative for smoking EtOH abuse or drug abuse Labs show hemoglobin is 9.1 platelet count is 326 potassium is 3.9 creatinine is 0.75 11/03 Patient is seen today in follow-up in the emergency center. Patient is currently in a sinus rhythm. He has been on IV amiodarone which will be transition to oral amiodarone initially at 400 mg twice daily. Heparin drip will be stopped and started on Eliquis. Echocardiogram from 10/28 revealed EF of 55 to 60%. On exam: Patient is comfortable at rest vital signs are stable there is a regular venous distention carotid upstroke is normal there is no bruit chest exam reveals good air entry bilaterally there are no crackles or rhonchi heart exam reveals first and second heart sounds are regular rhythm no murmur no rub abdomen is soft nontender exam extremities did not reveal any edema peripheral pulses are felt Assessment and plan: Persistent atrial fibrillation with rapid ventricular rate, converted to sinus rhythm Coronary artery disease status post recent angioplasty Transition IV heparin to oral Eliquis 5 mg twice daily Transition IV amiodarone to oral 400 mg twice daily Patient is cleared for discharge and will follow-up with Dr. Franklin in 1 to 2 weeks. Nurse practitioner note has been reviewed, I agree with documented findings and plan of care. Patient was seen and examined. Objective - Vital Signs Vital signs: Vital Signs Temp 98.6 F 11/04/23 04:00 Pulse 84 11/04/23 04:00 Resp 16 11/04/23 04:00 BP 125/87 11/04/23 04:00 Pulse Ox 95 11/04/23 04:00 FiO2 Intake & Output 11/03/23 11/04/23 11/04/23 18:59 06:59 18:59 Intake Total 123.291 Output Total 400 Balance -276.709 Weight 81.647 kg 81.647 kg Intake: Intake, IV Titration 123.291 Amount Heparin Sod,Pork in 0.45% 123.291 NaCl 25,000 unit In 0.45 % NaCl 1 250ml.bag @ 12 UNITS/KG/HR 9.798 mls/hr IV .Q24H [facility] Rx#: [id number] Output: Urine 400 - Labs CBC & Chem 7: 11/04/23 06:23 11/04/23 06:23 Labs: Abnormal Lab Results - Last 24 Hours (Table) 11/03/23 11/03/23 11/03/23 Range/Units 10:11 10:11 10:11 RBC 2.66 L (4.30-5.90) m/uL Hgb 9.1 L (13.0-17.5) gm/dL Hct 27.0 L (39.0-53.0) % MCV 101.8 H (80.0-100.0) fL RDW 17.7 H (11.5-15.5) % Lymphocytes # 0.9 L (1.0-4.8) k/uL Metamyelocytes # (Man) (0) k/uL Myelocytes # (Manual) (0) k/uL Nucleated RBCs (0-0) /100 WBC Macrocytosis APTT (22.0-30.0) sec Chloride 108 H (98-107) mmol/L Glucose 121 H (74-99) mg/dL AST (17-59) U/L ALT 72 H (4-49) U/L Troponin I 0.711 H* (0.000-0.034) ng/mL Total Protein (6.3-8.2) g/dL Albumin (3.5-5.0) g/dL Lipase 896 H (23-300) U/L Urine Protein (Negative) 11/03/23 11/03/23 11/03/23 Range/Units 10:11 13:02 15:06 RBC (4.30-5.90) m/uL Hgb (13.0-17.5) gm/dL Hct (39.0-53.0) % MCV (80.0-100.0) fL RDW (11.5-15.5) % Lymphocytes # (1.0-4.8) k/uL Metamyelocytes # (Man) (0) k/uL Myelocytes # (Manual) (0) k/uL Nucleated RBCs (0-0) /100 WBC Macrocytosis APTT (22.0-30.0) sec Chloride (98-107) mmol/L Glucose (74-99) mg/dL AST (17-59) U/L ALT (4-49) U/L Troponin I 0.567 H* 0.603 H* (0.000-0.034) ng/mL Total Protein (6.3-8.2) g/dL Albumin (3.5-5.0) g/dL Lipase (23-300) U/L Urine Protein Trace H (Negative) 11/03/23 11/03/23 11/03/23 Range/Units 17:29 17:53 23:33 RBC 2.50 L (4.30-5.90) m/uL Hgb 8.7 L (13.0-17.5) gm/dL Hct 27.1 L (39.0-53.0) % MCV 108.6 H D (80.0-100.0) fL RDW 18.5 H (11.5-15.5) % Lymphocytes # (1.0-4.8) k/uL Metamyelocytes # (Man) (0) k/uL Myelocytes # (Manual) (0) k/uL Nucleated RBCs (0-0) /100 WBC Macrocytosis Marked A APTT 35.6 H 34.1 H (22.0-30.0) sec Chloride (98-107) mmol/L Glucose (74-99) mg/dL AST (17-59) U/L ALT (4-49) U/L Troponin I (0.000-0.034) ng/mL Total Protein (6.3-8.2) g/dL Albumin (3.5-5.0) g/dL Lipase (23-300) U/L Urine Protein (Negative) 11/04/23 11/04/23 11/04/23 Range/Units 06:23 06:23 06:23 RBC 2.33 L (4.30-5.90) m/uL Hgb 7.9 L (13.0-17.5) gm/dL Hct 24.6 L (39.0-53.0) % MCV 105.9 H (80.0-100.0) fL RDW 18.2 H (11.5-15.5) % Lymphocytes # (1.0-4.8) k/uL Metamyelocytes # (Man) 0.05 H (0) k/uL Myelocytes # (Manual) 0.05 H (0) k/uL Nucleated RBCs 1 H (0-0) /100 WBC Macrocytosis Marked A APTT 72.7 H (22.0-30.0) sec Chloride (98-107) mmol/L Glucose 132 H (74-99) mg/dL AST 63 H (17-59) U/L ALT 56 H (4-49) U/L Troponin I (0.000-0.034) ng/mL Total Protein 5.8 L (6.3-8.2) g/dL Albumin 3.0 L (3.5-5.0) g/dL Lipase (23-300) U/L Urine Protein (Negative)
[2023-11-04 12:03] VITALS: BP 133/77; PULSE 81; RESP 17; TEMP 98
--- NOTE | 2023-11-25 15:42 | US ---
Patient: Hiro Lin L Ordering Physician: Watson Herr Neil ID: [id number] Phone, Pager: Phone: Pager: : [phone] Age/Gender: 71Y, M Primary Location: [facility] Procedure: XR CHEST 2V Study Date: 05/31/2021 9:12:55 AM Order #: [id number] Reason: PRE SURGICAL TESTING EXAMINATION TYPE: US chest OF EXAM: 10/29/2023 COMPARISON: Old chest radiograph 05/31/2021 CLINICAL INDICATION: 73-year-old male presurgical testing, preop for back surgery TECHNIQUE: Targeted ultrasound of the posterior lower bilateral hemithoraces. EXAM MEASUREMENTS: Right Pleural Effusion pocket size: 6.8 cm Right skin surface to fluid distance: 2.3 cm Left Pleural Effusion pocket size: 8.2 cm Left skin surface to fluid distance: 2.7 cm Right side was not marked. Left side marked for possible thoracentesis outside the dept. Pulmonologists are able to review the images in the patient?s EMR. IMPRESSIONS: Moderate left and [id number] right pleural effusions with adjacent atelectatic jairo ng. Left side was marked.
== END 2023-11-04 12:42 | disposition home or self-care (01) | DRG 282 ==
LOC: EC 09:49 → 3SCARD 11:20
PROVIDERS: ADMIT Internal Medicine; ATTEND Internal Medicine
PROC: 3E033RZ Introduction of Antiarrhythmic into Peripheral Vein, Percutaneous Approach (ICD-10-PCS; principal; 2023-11-03)
DX: I48.19 Other persistent atrial fibrillation (principal); I21.9 Acute myocardial infarction, unspecified; I10 Essential (primary) hypertension; E78.5 Hyperlipidemia, unspecified; R79.89 Other specified abnormal findings of blood chemistry; I25.10 Atherosclerotic heart disease of native coronary artery without angina pectoris; I25.2 Old myocardial infarction; Z95.5 Presence of coronary angioplasty implant and graft; Z79.01 Long term (current) use of anticoagulants; Z79.82 Long term (current) use of aspirin; Z79.02 Long term (current) use of antithrombotics/antiplatelets; Z79.899 Other long term (current) drug therapy; Z87.891 Personal history of nicotine dependence; Z88.0 Allergy status to penicillin; Z88.6 Allergy status to analgesic agent; Z88.5 Allergy status to narcotic agent; Z88.8 Allergy status to other drugs, medicaments and biological substances
CPT/HCPCS: 93005; 96365; 96366; 96368; 99291

== ENCOUNTER → 2023-12-07 | Outpatient (CLI) | payer MEDICARE ==
[2023-12-07 15:33] LABS: HCT 32.5 % (39.6-50.0); HGB 10.1 g/dL (13.0-17.0); MCH 33.7 pg (27.0-32.0); MCHC 31.1 g/dL (32.0-37.0); MCV 108.3 FL (80.0-97.0); Mean Platelet Volume 11.3 FL (9.5-12.2); NRBC Per 100 WBC 0 X 10*3/uL (0.00-0.01); Platelet Count 187 X 10*3/uL (140-440); RDW 17.1 % (11.5-14.5); WBC 2.31 X 10*3/uL (4.50-10.00)
[2023-12-07 15:50] LABS: Blood Urea Nitrogen 17.6 mg/dL (9.0-27.0); Carbon Dioxide 25.4 mmol/L (21.6-31.8); Chloride 102 mmol/L (96-109); Potassium 4.6 mmol/L (3.5-5.5); Sodium 139 mmol/L (135-145)
== END | disposition home or self-care (01) ==
LOC: LABPAT 10:57
PROVIDERS: ATTEND Internal Medicine
DX: Z01.818 Encounter for other preprocedural examination
CPT/HCPCS: 36415; 80051; 82565; 84520; 85027

== ENCOUNTER 2023-12-16 09:58 | Day surgery (SDC) | payer MEDICARE ==
[~2023-12-16 09:58] MED LIST changes: +ALPRAZolam 0.25 MG TAB PO PRN; +ALPRAZolam 0.5 MG TAB PO PRN; +ASPIRIN 325 MG TAB PO ONE; +HEPARIN SODIUM,PORCINE (1 ML) 2,500 UNIT in SODIUM CHLORIDE 0.9% 250 ML IRRIGATION PRN; +HEPARIN SODIUM,PORCINE 10,000 UNIT in SODIUM CHLORIDE 0.9% 1,000 ML IRRIGATION PRN; -LIDOCAINE 1% (10MG/ML) FOR IV START INTRADERMA PRN; +NITROGLYCERIN SL TABS 0.4 MG TAB SUBLINGUAL PRN; -ONDANSETRON 4 MG/2 ML VIAL IVP ONE; -ceFAZolin 1,000 MG in SODIUM CHLORIDE 0.9% IRRIGATIO 1,000 ML IRRIGATION PRN
[2023-12-16] MEDS: IV FLUID CONTINUATION 1,000 ML IV ONE (10:05)
[2023-12-16 10:14] VITALS: RESP 18; TEMP 97.7
[2023-12-16] MEDS: SODIUM CHLORIDE 0.9% 1,000 ML in EMPTY BAG 1 BAG IV SCH (10:14)
[2023-12-16 11:05] LABS: Anisocytosis Slight; HCT 42.7 % (39.0-53.0); Hypochromasia Marked; MCH 33.6 pg (25.0-35.0); MCHC 30.7 g/dL (31.0-37.0); MCV 109.3 fL (80.0-100.0); Macrocytosis Marked; Mean Platelet Volume 8.7; Platelet Count 220 k/uL (150-450); RBC 3.91 m/uL (4.30-5.90); RDW 16.2 % (11.5-15.5)
[2023-12-16 11:06] LABS: HGB 13.1 gm/dL (13.0-17.5)
[2023-12-16] MEDS: MIDAZOLAM 2 MG/2 ML VIAL IVP ONE (11:36)
[2023-12-16] MEDS: fentaNYL (PF) 50 MCG/ML 2 ML AMP IVP ONE (11:36)
[2023-12-16] MEDS: LIDOCAINE 1% INJ 10MG/ML (20 ML MDV) SQ ONE ×2 (11:38→11:47)
[2023-12-16] MEDS: HEPARIN SODIUM 1,000 UN/ML (10ML VL) IVP ONE ×3 (11:46→12:07)
[2023-12-16] MEDS: VERAPAMIL SYRINGE (5 MG/10 ML) INTRAARTER ONE (11:48)
[2023-12-16] MEDS: HEPARIN SODIUM,PORCINE 10,000 UNIT in SODIUM CHLORIDE 0.9% 1,000 ML IRRIGATION ONE (11:51)
[2023-12-16] MEDS: HEPARIN SODIUM,PORCINE (1 ML) 2,500 UNIT in SODIUM CHLORIDE 0.9% 250 ML IRRIGATION ONE (11:51)
[2023-12-16] MEDS: IOPAMIDOL-370 100ML BTL INJ ONE ×2 (12:04→12:09)
[2023-12-16 12:11] LABS: Lymphocytes # (M) 1.77 k/uL (1.0-4.8); Monocytes # (M) 0.39 k/uL (0-1.0); Neutrophils # (M) 0.84 k/uL (1.3-7.7); Neutrophils % (M) 28 %; Nucleated Red Blood Cells 0 /100 WBC (0-0); Total Cells Counted 100
[2023-12-16] MEDS ORDERED: ATROPINE SULFATE 0.1 MG/ML 10ML SYRINGE IV PRN (12:20)
[2023-12-16] MEDS ORDERED: MAG HYDROX/AL HYDROX/SIMETH 30 ML CUP PO PRN (12:20)
[2023-12-16] MEDS ORDERED: ACETAMINOPHEN TAB 325 MG TAB PO PRN (12:20)
--- NOTE | 2023-12-16 12:42 | P.PRCINT ---
Percutaneous Coronary Int. - Percutaneous Coronary Intervention Percutaneous Coronary Intervention: PROCEDURES PERFORMED: Left heart catheterization, bilateral coronary angiography, ultrasound guided arterial access, PCI OM1 with a 2.75 x 12mm Xience IKE post dilated with a 2.75mm NC balloon INDICATION: staged PCI CONSENT:I have discussed the risks, benefits and alternative therapies for the above-mentioned procedure and for both sedation/analgesia as well as necessary blood product administration, if indicated, as they pertain to this patient. The patient has indicated understanding and acceptance of the risks and procedures discussed. PROCEDURE: After the risks, benefits and alternatives of the above mentioned procedure explained in detail with the patient, informed consent was obtained. Patient was taken to the catheterization lab and prepped and draped in usual fashion. Ultrasound guidance was used to assess for arterial access. 1% lidocaine was used to anesthetize the right ulnar artery. A 6-Polish sheath was placed in the right ulnar artery using modified Seldinger technique and ultrasound guidance. Left coronary angiography was performed with a 6-Polish CLS 3.5 catheter and right coronary angiography was performed with a 5-Polish AR2 catheter in various views. A 5-Polish AR2 catheter was inserted into the left ventricle and pressure measurements were obtained. The right ulnar sheath was removed and a TR band was placed with hemostasis achieved. The patient tolerated the procedure well. Patient was transported back to the post catheterization holding area in stable condition. Conscious Sedation: Patient was monitored under the direct supervision of myself for conscious sedation using Versed and fentanyl for a total duration of 34 minutes HEMODYNAMICS: Ao: 139/79 LV: 138/5, LVEPD 16 mmHg SELECTIVE CORONARY ARTERIOGRAPHY: LEFT MAIN: The left main is a large caliber vessel which bifurcates into the LAD and circumflex. There is 10% stenosis. LEFT ANTERIOR DESCENDING CORONARY ARTERY: LAD is a large caliber vessel which wraps around just short of the apex. There is 30% proximal LAD stenosis and diffuse 40% mid LAD stenosis including a near trifurcation of diagonal 1 and diagonal 2 branch. Otherwise there are mild luminal irregularities. LEFT CIRCUMFLEX CORONARY ARTERY: Left circumflex is a moderate caliber vessel with an ostial 30% stenosis, proximal 30% stenosis and OM1 is moderate caliber with a proximal 75% stenosis. After OM1 there is a moderate caliber A-V branch with mild luminal irregularities.. RIGHT CORONARY ARTERY: The right coronary artery is a large caliber vessel which gives off a PDA and PLV branch and is the dominant vessel. There is a long proximal to mid RCA stent which is patent with diffuse 20% stenosis. There then mild luminal irregularities giving off a moderate caliber PLV branch and a large PDA branch which feeds the apex. There is a proximal mid PDA stent with 30-40% stenosis of the proximal PDA. FINAL IMPRESSION: 1. CAD as described above including 30% proximal LAD, 40% mid LAD, 30% proximal circumflex, 75% proximal OM1, patent proximal to mid RCA stents with 30-40% proximal PDA stenosis. 2. High normal left sided filling pressures 3. S/p PCI OM1 with a 2.75 x 12mm Xience IKE post dilated with a 2.75mm NC balloon PLAN: 1. Aggressive risk factor modification per most recent ACC/AHA guidelines. 2. Continue dual antiplatelets with aspirin and Brillinta for 12 months
[2023-12-16 15:23] VITALS: BP 123/62; PULSE 53
[2023-12-16] MEDS ORDERED: FERROUS SULFATE 325 MG TAB PO SCH (16:00)
[2023-12-16] MEDS ORDERED: oxyBUTYnin chloride 5 MG TAB PO SCH (21:00)
[2023-12-16] MEDS ORDERED: TICAGRELOR 90 MG TAB PO SCH (21:00)
[2023-12-17] MEDS ORDERED: ATORVASTATIN 40 MG TAB PO SCH (09:00)
[2023-12-17] MEDS ORDERED: EZETIMIBE 10 MG TAB PO SCH (09:00)
[2023-12-17] MEDS ORDERED: ASPIRIN 81 MG PO SCH (09:00)
[2023-12-17] MEDS ORDERED: AMIODARONE 100 MG TAB PO SCH ×2 (09:00)
[2023-12-17] MEDS ORDERED: METOPROLOL SUCCINATE (ER) 50 MG TAB.ER.24H PO SCH (09:00)
== END 2023-12-16 15:54 | disposition home or self-care (01) ==
LOC: CATHCVL 09:58
PROVIDERS: ATTEND Internal Medicine
DX: R06.02 Shortness of breath
CPT/HCPCS: 85025

== ENCOUNTER → 2023-12-28 | Outpatient (CLI) | payer MEDICARE ==
--- NOTE | 2023-12-28 09:39 | US ---
EXAMINATION TYPE: US liver DATE OF EXAM: 12/28/2023 COMPARISON: Abdominal ultrasound 08/17/2009, CT scan of the pelvis 02/19/2013 CLINICAL INDICATION: Male, 73 years old with history of R74.8 ELEVATED LIVER ENZYMES; Elevated liver enzymes TECHNIQUE: Grayscale and color Doppler imaging of the right upper quadrant was performed. FINDINGS: EXAM MEASUREMENTS: Liver Length: 13.3 cm Gallbladder Wall: .2 cm CBD: .4 cm Right Kidney: 10.1 x 3.6 x 4.7 cm 3D SPECIALIST NOTES: Pancreas: Obscured by bowel gas Liver: wnl Gallbladder: No stones seen Evidence for sonographic Fields's sign: No CBD: wnl Right Kidney: No hydronephrosis or masses seen Pancreas is obscured by overlying bowel gas. Liver appears within normal limits without focal lesion. Noncirrhotic pathology. No cholelithiasis, wall thickening or surrounding fluid. Negative sonographi c Fields sign. Common bile duct is within normal limits. Right kidney demonstrates no hydronephrosis, solid mass, or nephrolithiasis. IMPRESSION: Unremarkable right upper quadrant ultrasound. [facility], , 12/28/2023 9:37 AM
== END | disposition home or self-care (01) ==
LOC: RADUSWWP 09:11
PROVIDERS: ATTEND Internal Medicine
DX: R74.8 Abnormal levels of other serum enzymes (principal)
CPT/HCPCS: 76705

== ENCOUNTER 2024-01-27 19:34 | Inpatient (IN) | payer MEDICARE ==
--- NOTE | 2024-01-27 20:21 | ED ---
Abdominal Pain HPI - General Chief Complaint: Abdominal Pain Stated Complaint: abd pain Time Seen by Provider: 01/27/24 20:10 Source: patient, RN notes reviewed, old records reviewed Mode of arrival: ambulatory Limitations: no limitations - History of Present Illness Initial Comments: This is a 73 male to the ER for evaluation today. Patient presents today for evaluation regards to abdominal pain patient has significant on and off abdominal pain here in the ER with nausea no vomiting no travel history or sick contacts no fevers no other complaint MD Complaint: abdominal pain -: days(s) Location: diffuse, periumbilical Migration to: periumbilical, epigastric, suprapubic Severity: moderate Severity scale (1-10): 4 Quality: cramping, aching Consistency: constant Improves With: nothing Worsens With: nothing Associated Symptoms: nausea Treatments Prior to Arrival: other (0) - Related Data Home Medications Medication Instructions Recorded Confirmed Ferrous Sulfate [Iron] 325 mg PO DAILY 12/09/23 01/28/24 Previous Rx's Medication Instructions Recorded Apixaban [Eliquis] 5 mg PO BID #180 tab 11/04/23 Atorvastatin [Lipitor] 40 mg PO DAILY tab 11/04/23 Ezetimibe [Zetia] 10 mg PO DAILY tab 11/04/23 Metoprolol Succinate (ER) [Toprol 50 mg PO DAILY 30 Days #30 tab 11/04/23 XL] Ticagrelor [Brilinta] 90 mg PO BID 30 Days #60 tab 11/04/23 Docusate [Colace] 100 mg PO BID #30 capsule 02/01/24 HYDROcodone/APAP 5-325MG [[place] 1 tab PO Q6HR PRN 3 Days #12 tab 02/01/24 5-325] Tamsulosin [Flomax] 0.4 mg PO BID #60 cap 02/01/24 Allergies Allergy/AdvReac Type Severity Reaction Status Date / Time fluoride Allergy Swelling Verified 01/28/24 16:13 in mouth, itching, rash Penicillins Allergy Rash/Hives Verified 01/28/24 16:13 propoxyphene Allergy Itching Verified 01/28/24 16:13 [From Darvocet-N] ibuprofen AdvReac Abdominal Verified 01/28/24 16:13 Pain/gas Review of Systems ROS Statement: Those systems with pertinent positive or pertinent negative responses have been documented in the HPI. ROS Other: All systems not noted in ROS Statement are negative. Past Medical History Past Medical History: Hyperlipidemia, Myocardial Infarction (CT), Osteoarthritis (OA) Additional Past Medical History / Comment(s): bowel obs w/necrosis, bowel obs r/t adhesions, WBC LOW Last Myocardial Infarction Date:: 10/23/23 History of Any Multi-Drug Resistant Organisms: None Reported Past Surgical History: Heart Catheterization With Stent Additional Past Surgical History / Comment(s): steven thumb,steven elbows,steven shoulders,steven inguinal hernia,femoral hernia,laparotomy w/ lysis of adhesions, BILAT FOOT SX, COLONOSCOPY, Past Anesthesia/Blood Transfusion Reactions: Postoperative Nausea & Vomiting (PONV) Additional Past Anesthesia/Blood Transfusion Reaction / Comment(s): no blood transfusion reaction Date of Last Stent Placement:: 10/25/23 Past Psychological History: No Psychological Hx Reported Smoking Status: Never smoker Past Alcohol Use History: Daily Past Drug Use History: None Reported - Past Family History Mother Family Medical History: Cancer, Deep Vein Thrombosis (DVT) Additional Family Medical History / Comment(s): melanoma Father Family Medical History: Cancer Additional Family Medical History / Comment(s): prostate cancer Brother(s) Family Medical History: Cancer Additional Family Medical History / Comment(s): multiple myeloma General Exam Limitations: no limitations General appearance: alert, in no apparent distress Head exam: Present: atraumatic, normocephalic, normal inspection Eye exam: Present: normal appearance, PERRL, EOMI. Absent: scleral icterus, conjunctival injection, periorbital swelling ENT exam: Present: normal exam, mucous membranes moist Neck exam: Present: normal inspection. Absent: tenderness, meningismus, lymphadenopathy Respiratory exam: Present: normal lung sounds bilaterally. Absent: respiratory distress, wheezes, rales, rhonchi, stridor Cardiovascular Exam: Present: regular rate, normal rhythm, normal heart sounds. Absent: systolic murmur, diastolic murmur, rubs, gallop, clicks GI/Abdominal exam: Present: soft, normal bowel sounds. Absent: distended, tenderness, guarding, rebound, rigid Extremities exam: Present: normal inspection, full ROM, normal capillary refill. Absent: tenderness, pedal edema, joint swelling, calf tenderness Back exam: Present: normal inspection Neurological exam: Present: alert, oriented X3, CN II-XII intact Psychiatric exam: Present: normal affect, normal mood Skin exam: Present: warm, dry, intact, normal color. Absent: rash Course Vital Signs 01/27/24 01/28/24 01/28/24 19:39 00:30 01:07 Temperature 98.2 F Pulse Rate 66 43 L 52 L Respiratory 18 18 18 Rate Blood Pressure 147/81 105/57 108/68 O2 Sat by Pulse 100 97 97 Oximetry 01/28/24 01/28/24 01/28/24 03:30 06:45 09:58 Temperature Pulse Rate 57 L 62 64 Respiratory 16 16 18 Rate Blood Pressure 104/63 120/77 O2 Sat by Pulse 96 95 96 Oximetry 01/28/24 14:32 Temperature Pulse Rate 68 Respiratory 16 Rate Blood Pressure 113/66 O2 Sat by Pulse 95 Oximetry - Reevaluation(s) Reevaluation #1: 01/27/24 20:51 Medical records reviewed Reevaluation #2: 01/27/24 21:28 This pain improved Reevaluation #3: 01/27/24 21:28 Patient informed of results and questions answered Reevaluation #4: Was pt. sent in by a medical professional or institution (, PA, POST GRADUATE INTERN, urgent care, hospital, or jail...) When possible be specific @ -no Did you speak to anyone other than the patient for history (EMS, parent, family, police, friend...)? What history was obtained from this source @ -no Did you review nursing and triage notes (agree or disagree)? Why? @ -agree Are old charts reviewed (outside hosp., previous admission, EMS record, old EKG, old radiological studies, urgent care reports/EKG's, jail records)? Report findings @ -yes Differential Diagnosis (chest pain, altered mental status, abdominal pain women, abdominal pain men, vaginal bleeding, weakness, fever, dyspnea, syncope, headache, dizziness, GI bleed, back pain, seizure, CVA, palpatations, mental health, musculoskeletal)? @ -prior EKG interpreted by me (3pts min.). @ -yes X-rays interpreted by me (1pt min.). @ -no CT interpreted by me (1pt min.). @ -Yes positive for small bowel obstruction U/S interpreted by me (1pt. min.). @ -no What testing was considered but not performed or refused? (CT, X-rays, U/S, labs)? Why? @ -none What meds were considered but not given or refused? Why? @ -none Did you discuss the management of the patient with other professionals (professionals i.e. , PA, POST GRADUATE INTERN, lab, RT, psych nurse, school social worker, fiberglass machine operator, teacher, mobile patrol officer, ed case manager)? Give summary @ -no Was smoking cessation discussed for >3mins.? @ -no Was critical care preformed (if so, how long)? @ -no Were there social determinants of health that impacted care today? How? (Homelessness, low income, unemployed, alcoholism, drug addiction, transportation, low edu. Level, literacy, decrease access to med. care, [facility], rehab)? @ -none Was there de-escalation of care discussed even if they declined (Discuss DNR or withdrawal of care, Hospice)? DNR status @ -no What co-morbidities impacted this encounter? (DM, HTN, Smoking, COPD, CAD, Cancer, CVA, ARF, Chemo, Hep., AIDS, mental health diagnosis, sleep apnea, morbid obesity)? @ -none Was patient admitted / discharged? Hospital course, mention meds given and route, prescriptions, significant lab abnormalities, going to OR and other pertinent info. @ - 73 male to the ER for evaluation patient presents today for evaluation regards to severe abdominal pain found to have small bowel obstruction with history of recurrent and prior small bowel obstruction and hernia Admitted Undiagnosed new problem with uncertain prognosis? @ -no Drug Therapy requiring intensive monitoring for toxicity (Heparin, Nitro, Insulin, Cardizem)? @ -no Were any procedures done? @ -no Diagnosis/symptom? @ -Small bowel obstruction Acute, or Chronic, or Acute on Chronic? @ -Acute Uncomplicated (without systemic symptoms) or Complicated (systemic symptoms)? @ -Complicated Side effects of treatment? @ -no Exacerbation, Progression, or Severe Exacerbation? @ -exacerbation Poses a threat to life or bodily function? How? (Chest pain, USA, CT, pneumonia, PE, COPD, DKA, ARF, appy, cholecystitis, CVA, Diverticulitis, Homicidal, Suicidal, threat to staff... and all critical care pts) @ -yes surgical condition acute abdomen Reevaluation #5: 01/27/24 20:51 Differential Abdominal Pain Men: Appendicitis, cholecystitis, diverticulosis, ischemic bowel, pancreatitis, hepa titis, UTI, gastroenteritis, AAA, incarcerated hernia, bowel obstruction, constipation, inflammatory bowel, hepatitis, peptic ulcer disease, splenic infarction, perforated viscus, testicular torsion, this is not meant to be an all-inclusive list - Consultations Consultation #1: Spoke with Dr Cabrera who admits this patient Medical Decision Making - Medical Decision Making 73 male to the ER for evaluation patient presents today for evaluation regards to severe abdominal pain found to have small bowel obstruction with history of recurrent and prior small bowel obstruction and hernia - Lab Data Result diagrams: 01/30/24 02:44 01/30/24 02:44 Lab Results 01/27/24 01/27/24 01/27/24 Range/Units 21:02 21:02 21:02 WBC 2.2 L (3.8-10.6) k/uL RBC 3.39 L (4.30-5.90) m/uL Hgb 11.5 L (13.0-17.5) gm/dL Hct 36.1 L (39.0-53.0) % MCV 106.7 H (80.0-100.0) fL MCH 33.9 (25.0-35.0) pg MCHC 31.8 (31.0-37.0) g/dL RDW 15.3 (11.5-15.5) % Plt Count 160 (150-450) k/uL MPV 9.4 Neutrophils % 60 % Lymphocytes % 25 % Monocytes % 11 % Eosinophils % 1 % Basophils % 0 % Neutrophils # 1.3 (1.3-7.7) k/uL Lymphocytes # 0.6 L (1.0-4.8) k/uL Monocytes # 0.2 (0-1.0) k/uL Eosinophils # 0.0 (0-0.7) k/uL Basophils # 0.0 (0-0.2) k/uL Hypochromasia Slight Macrocytosis Moderate Sodium 137 (137-145) mmol/L Potassium 4.1 (3.5-5.1) mmol/L Chloride 104 (98-107) mmol/L Carbon Dioxide 26 (22-30) mmol/L Anion Gap 7 mmol/L BUN 24 H (9-20) mg/dL Creatinine 0.98 (0.66-1.25) mg/dL Est GFR (CKD-EPI)AfAm 89 (>60 ml/min/1.73 sqM) Est GFR (CKD-EPI)NonAf 77 (>60 ml/min/1.73 sqM) Glucose 127 H (74-99) mg/dL Plasma Lactic Acid Vinnie 1.0 (0.7-2.0) mmol/L Calcium 9.5 (8.4-10.2) mg/dL Total Bilirubin 0.6 (0.2-1.3) mg/dL AST 46 (17-59) U/L ALT 57 H (4-49) U/L Alkaline Phosphatase 88 (38-126) U/L Total Protein 7.7 (6.3-8.2) g/dL Albumin 4.5 (3.5-5.0) g/dL Amylase 62 (30-110) U/L Lipase 139 (23-300) U/L Serum Alcohol <10 mg/dL - EKG Data -: EKG Interpreted by Me (EKG is sinus bradycardia 58 QRS 80 QTc 420) - Radiology Data Radiology results: report reviewed (CT abdomen pelvis positive for small bowel obstruction), image reviewed Disposition Clinical Impression: Abdominal pain, Abdominal colic, Small bowel obstruction Disposition: ADMITTED IP TO THIS HOSP Condition: Stable Is patient prescribed a controlled substance at d/c from ED?: No Time of Disposition: 21:30
[2024-01-27] MEDS: ONDANSETRON 4 MG/2 ML VIAL IVP STA (21:08)
[2024-01-27] MEDS: SODIUM CHLORIDE 0.9% 1,000 ML IV STA (21:08)
[2024-01-27] MEDS: HYDROmorphone 1 MG/ML 1 ML SYRINGE IVP STA (21:08)
--- NOTE | 2024-01-27 21:08 | CT ---
EXAMINATION TYPE: CT abdomen pelvis wo con DATE OF EXAM: 01/27/2024 8:48 PM COMPARISON: Previous CT abdomen/pelvis 02/19/2013. CLINICAL INDICATION: Male, 73 years old with history of abdominal pain; Abdominal pain and nausea. TECHNIQUE: Axial CT abdomen pelvis wo con;Sagittal and coronal reformats were created on a separate workstation. CT DLP: 631.2 mGycm, Automated exposure control for dose reduction was used. FINDINGS: LOWER CHEST: Unremarkable ABDOMEN Liver is unremarkable noncontrast appearance. Gallbladder surgically absent. Spleen normal in size an d motility. No suspicious adrenal nodule. Pancreas unremarkable. Simple cyst in the superior left kid brandon. No hydronephrosis bilaterally. No abnormal dilatation. Calcified atherosclerotic disease without aneurysmal dilatation. No pathologic retroperitoneal lympha denopathy. Imaging through the gastrointestinal tract demonstrates post surgical anastomotic changes knee left h emiabdomen. There is a whirled appearance of the mesentery (axial images 58-80) with 2 separate trans ition points highly concerning for closed loop small bowel obstruction, possibly related to internal hernia. No evidence of free air/pneumoperitoneum or bowel wall pneumatosis at this time. Cannot evalu ate for bowel enhancement and lack of IV contrast. Bladder unremarkable. Colonic structures are relatively decompressed. Colonic diverticulosis without acute vasculitis. Small volume free fluid and interloop edema seen in the abdomen. Lumbosacral spinal fusion hardware visualized spanning L3-L5 with L3-4 and L4-L5 vertebral disc space r devices. Grade 1 anterolisthesis of L3 on L4 and mild retrolisthesis of L5 and S1. IMPRESSION: Findings highly concerning for closed loop obstruction with two focal transition points in the left h emiabdomen likely secondary to volvulus and/or internal hernia. Recommend surgical consultation for f urther evaluation. No evidence of free air or bowel pneumatosis at this time. *Critical findings were discussed with Dr. Shields, at 8:58 PM on 01/27/2024. [facility], , 01/27/2024 9:06 PM
[2024-01-27] MEDS ORDERED: ONDANSETRON 4 MG/2 ML VIAL IVP PRN (21:26)
[2024-01-27] MEDS ORDERED: NALOXONE 0.4 MG/ML 1 ML VIAL IV PRN (21:26)
[2024-01-27 21:32] LABS: Basophils % (A) 0 %; Eosinophils % (A) 1 %; HCT 36.1 % (39.0-53.0); HGB 11.5 gm/dL (13.0-17.5); Hypochromasia Slight; Lymphocytes # (A) 0.6 k/uL (1.0-4.8); Lymphocytes % (A) 25 %; MCH 33.9 pg (25.0-35.0); MCHC 31.8 g/dL (31.0-37.0); MCV 106.7 fL (80.0-100.0); Macrocytosis Moderate; Mean Platelet Volume 9.4; Monocytes # (A) 0.2 k/uL (0-1.0); Monocytes % (A) 11 %; Neutrophils # (A) 1.3 k/uL (1.3-7.7); Neutrophils % (A) 60 %; Platelet Count 160 k/uL (150-450); RBC 3.39 m/uL (4.30-5.90); RDW 15.3 % (11.5-15.5); WBC 2.2 k/uL (3.8-10.6)
[2024-01-27 21:38] LABS: ALT 57 U/L (4-49); AST 46 U/L (17-59); African American GFR (CKD) 89 (>60 ml/min/1.73 sqM); Albumin 4.5 g/dL (3.5-5.0); Alcohol <10 mg/dL; Alkaline Phosphatase 88 U/L (38-126); Amylase 62 U/L (30-110); Anion Gap 7 mmol/L; Blood Urea Nitrogen 24 mg/dL (9-20); Calcium 9.5 mg/dL (8.4-10.2); Carbon Dioxide 26 mmol/L (22-30); Chloride 104 mmol/L (98-107); Glucose 127 mg/dL (74-99); Lipase 139 U/L (23-300); Non-African American GFR(CKD) 77 (>60 ml/min/1.73 sqM); Potassium 4.1 mmol/L (3.5-5.1); Sodium 137 mmol/L (137-145); Total Bilirubin 0.6 mg/dL (0.2-1.3); Total Protein 7.7 g/dL (6.3-8.2)
[2024-01-27] MEDS: metroNIDAZOLE-NS PMX 500 MG in SALINE 1 100ML.BAG IVPB STA (22:05)
[2024-01-27] MEDS: SODIUM CHLORIDE 0.9% 1,000 ML IV SCH (23:29)
[2024-01-27] MEDS: LEVOFLOXACIN 750MG-D5W PMX 750 MG in DEXTROSE/WATER 1 150ML.BAG IVPB ONE (23:29)
[2024-01-28] MEDS: HYDROmorphone 1 MG/ML 1 ML SYRINGE IVP PRN ×2 (00:42→20:24)
[2024-01-28 07:27] LABS: Basophils % (A) 0 %; Eosinophils % (A) 1 %; HCT 33.4 % (39.0-53.0); HGB 10.4 gm/dL (13.0-17.5); Hypochromasia Slight; Lymphocytes # (A) 0.6 k/uL (1.0-4.8); Lymphocytes % (A) 15 %; MCH 34.2 pg (25.0-35.0); MCHC 31.2 g/dL (31.0-37.0); MCV 109.3 fL (80.0-100.0); Macrocytosis Marked; Monocytes # (A) 0.4 k/uL (0-1.0); Monocytes % (A) 11 %; Neutrophils # (A) 2.9 k/uL (1.3-7.7); Neutrophils % (A) 71 %; Platelet Count 155 k/uL (150-450); RBC 3.06 m/uL (4.30-5.90); RDW 15.6 % (11.5-15.5); WBC 4.1 k/uL (3.8-10.6)
[2024-01-28 07:41] LABS: ALT 45 U/L (4-49); AST 36 U/L (17-59); African American GFR (CKD) >90 (>60 ml/min/1.73 sqM); Albumin 3.7 g/dL (3.5-5.0); Alkaline Phosphatase 76 U/L (38-126); Anion Gap 5 mmol/L; Blood Urea Nitrogen 20 mg/dL (9-20); Calcium 8.5 mg/dL (8.4-10.2); Carbon Dioxide 27 mmol/L (22-30); Chloride 106 mmol/L (98-107); Glucose 104 mg/dL (74-99); Magnesium 2.2 mg/dL (1.6-2.3); Non-African American GFR(CKD) 79 (>60 ml/min/1.73 sqM); Phosphorus 4.6 mg/dL (2.5-4.5); Potassium 4.2 mmol/L (3.5-5.1); Sodium 138 mmol/L (137-145); Total Bilirubin 0.4 mg/dL (0.2-1.3); Total Protein 6.5 g/dL (6.3-8.2)
[2024-01-28] MEDS: metroNIDAZOLE-NS PMX 500 MG in SALINE 1 100ML.BAG IVPB SCH (07:44)
[2024-01-28 09:26] LABS: INR 1.1 (<1.2); Prothrombin Time 12.2 sec (10.0-12.5)
[2024-01-28] MEDS: PANTOPRAZOLE 40 MG/10 ML VIAL IV SCH (09:54)
[2024-01-28] MEDS: ASPIRIN 81 MG PO STA (10:57)
--- NOTE | 2024-01-28 11:06 | P.GSHP ---
History of Present Illness H&P Date: 01/28/24 CHIEF COMPLAINT: Abdominal pain HISTORY OF PRESENT ILLNESS: This is a 73-year-old male who presented the hospital with complaints of abdominal pain. Patient reports the pain started after lunch yesterday. Patient reports having severe pain for about 4 hours with severe nausea. Pain was across the mid abdomen. He does report having 2 formed stools yesterday during the severe painful episode. Patient reports he was not improving and therefore came into the ER for further evaluation. He has had a small amount of flatus since being in the ER. No vomiting. He does have a history of bowel obstruction in the past with lysis of adhesions and a femoral hernia repair. Patient had CT scan abdomen pelvis that reported findings highly concerning for closed-loop obstruction with 2 focal transition points in the left hemiabdomen likely secondary to a volvulus and/or internal hernia. Patient does have a significant cardiac history with a recent DC 3 months ago with coronary artery disease cardiac stents. Patient reports 5 stents placed in October and then another new stent placed in December. He is on Brilinta and Eliquis at home. The last dose was yesterday morning. PAST MEDICAL HISTORY: Hyperlipidemia, Myocardial Infarction (DC), Osteoarthritis (OA), atrial fibrillation, coronary artery disease with cardiac stents PAST SURGICAL HISTORY: Heart Catheterization With Stent, lysis of adhesions femoral hernia repair, bilateral inguinal hernia repair MEDICATIONS: See below ALLERGIES: See below SOCIAL HISTORY: No illicit drug use. Daily alcohol use REVIEW OF SYSTEMS: CONSTITUTIONAL: Denies fever or chills. HEENT: Denies blurred vision, vision changes, or eye pain. Denies hemoptysis CARDIOVASCULAR: Denies chest pain or pressure. RESPIRATORY: No shortness of breath. GASTROINTESTINAL: See HPI for pertinent findings HEMATOLOGIC: Denies bleeding disorders. GENITOURINARY: Denies any blood in urine or increased urinary frequency. SKIN: Denies pruitis. Denies rash. PHYSICAL EXAM: VITAL SIGNS: Reviewed GENERAL: Well-developed in no acute distress. HEENT: No sclera icterus. Extraocular movements grossly intact. Moist buccal mucosa. Head is atraumatic, normocephalic. No nasal drainage. ABDOMEN: Soft. Nondistended. Diffuse tenderness. No guarding. NEUROLOGIC: Alert and oriented. Cranial nerves II through XII grossly intact. LABORATORY DATA: WBC 4.1 Hgb 10.4 platelets 155 Sodium 138 potassium 4.2 creatinine 0.96 Lactic acid 1.0 Serum alcohol level less than 10 EKG reporting sinus bradycardia with second-degree AV block IMAGING: CT scan abdomen pelvis findings report highly concerning for closed-loop obstruction with 2 focal transition point in the left hemiabdomen likely secondary to volvulus and/or internal hernia. ASSESSMENT: 1. Closed-loop small bowel obstruction with CT scan reporting to focal transition point in the left hemiabdomen likely secondary to volvulus and/or internal hernia 2. Prior history of abdominal surgeries 3. Prior history of bowel obstruction requiring lysis of adhesions 4. History of DC 3 months ago and coronary disease with cardiac stents. Last stent December 2023 PLAN: -Patient scheduled for lysis of adhesions today with Dr. Cabrera -Keep patient n.p.o. -Cardiology consulted for cardiac risk assessment and EKG changes -Continue antibiotics -Continue IV fluids -Continue pain management -Hold [place] Physician [employer]ular Sawyer note has been reviewed by physician. Signing provider agrees with the documented findings, assessment, and plan of care. Past Medical History Past Medical History: Hyperlipidemia, Myocardial Infarction (DC), Osteoarthritis (OA) Additional Past Medical History / Comment(s): bowel obs w/necrosis, bowel obs r/t adhesions, WBC LOW Last Myocardial Infarction Date:: 10/23/23 History of Any Multi-Drug Resistant Organisms: None Reported Past Surgical History: Heart Catheterization With Stent Additional Past Surgical History / Comment(s): steven thumb,steven elbows,steven shoulders,steven inguinal hernia,femoral hernia,laparotomy w/ lysis of adhesions, BILAT FOOT SX, COLONOSCOPY, Past Anesthesia/Blood Transfusion Reactions: Postoperative Nausea & Vomiting (PONV) Additional Past Anesthesia/Blood Transfusion Reaction / Comment(s): no blood transfusion reaction Date of Last Stent Placement:: 10/25/23 Past Psychological History: No Psychological Hx Reported Smoking Status: Never smoker Past Alcohol Use History: Daily Past Drug Use History: None Reported - Past Family History Mother Family Medical History: Cancer, Deep Vein Thrombosis (DVT) Additional Family Medical History / Comment(s): melanoma Father Family Medical History: Cancer Additional Family Medical History / Comment(s): prostate cancer Brother(s) Family Medical History: Cancer Additional Family Medical History / Comment(s): multiple myeloma Medications and Allergies Home Medications Medication Instructions Recorded Confirmed Type Apixaban [Eliquis] 5 mg PO BID #180 tab 11/04/23 01/28/24 Rx Atorvastatin [Lipitor] 40 mg PO DAILY tab 11/04/23 01/28/24 Rx Ezetimibe [Zetia] 10 mg PO DAILY tab 11/04/23 01/28/24 Rx Metoprolol Succinate (ER) [Toprol 50 mg PO DAILY 30 Days #30 tab 11/04/23 01/28/24 Rx XL] Ticagrelor [Brilinta] 90 mg PO BID 30 Days #60 tab 11/04/23 01/28/24 Rx Ferrous Sulfate [Iron] 325 mg PO DAILY 12/09/23 01/28/24 History Tamsulosin HCl [Flomax] 0.4 mg PO HS 01/28/24 01/28/24 History Allergies Allergy/AdvReac Type Severity Reaction Status Date / Time fluoride Allergy Swelling Verified 01/28/24 07:41 in mouth, itching, rash Penicillins Allergy Rash/Hives Verified 01/28/24 07:41 propoxyphene Allergy Itching Verified 01/28/24 07:41 [From Brayan-N] ibuprofen AdvReac Abdominal Verified 01/28/24 07:41 Pain/gas Surgical - Exam Vital Signs Temp Pulse Resp BP Pulse Ox 98.2 F 66 18 147/81 100 01/27/24 19:39 01/27/24 19:39 01/27/24 19:39 01/27/24 19:39 01/27/24 19:39 Results - Labs 01/28/24 06:11 01/28/24 06:11 Abnormal Lab Results - Last 24 Hours (Table) 01/27/24 01/27/24 01/28/24 Range/Units 21:02 21:02 06:11 WBC 2.2 L (3.8-10.6) k/uL RBC 3.39 L 3.06 L (4.30-5.90) m/uL Hgb 11.5 L 10.4 L (13.0-17.5) gm/dL Hct 36.1 L 33.4 L (39.0-53.0) % MCV 106.7 H 109.3 H (80.0-100.0) fL RDW 15.6 H (11.5-15.5) % Lymphocytes # 0.6 L 0.6 L (1.0-4.8) k/uL Macrocytosis Marked A BUN 24 H (9-20) mg/dL Glucose 127 H (74-99) mg/dL Phosphorus (2.5-4.5) mg/dL ALT 57 H (4-49) U/L 01/28/24 Range/Units 06:11 WBC (3.8-10.6) k/uL RBC (4.30-5.90) m/uL Hgb (13.0-17.5) gm/dL Hct (39.0-53.0) % MCV (80.0-100.0) fL RDW (11.5-15.5) % Lymphocytes # (1.0-4.8) k/uL Macrocytosis BUN (9-20) mg/dL Glucose 104 H (74-99) mg/dL Phosphorus 4.6 H (2.5-4.5) mg/dL ALT (4-49) U/L Diabetes panel 01/27/24 01/28/24 Range/Units 21:02 06:11 Sodium 137 138 (137-145) mmol/L Potassium 4.1 4.2 (3.5-5.1) mmol/L Chloride 104 106 (98-107) mmol/L Carbon Dioxide 26 27 (22-30) mmol/L BUN 24 H 20 (9-20) mg/dL Creatinine 0.98 0.96 (0.66-1.25) mg/dL Glucose 127 H 104 H (74-99) mg/dL Calcium 9.5 8.5 (8.4-10.2) mg/dL AST 46 36 (17-59) U/L ALT 57 H 45 (4-49) U/L Alkaline Phosphatase 88 76 (38-126) U/L Total Protein 7.7 6.5 (6.3-8.2) g/dL Albumin 4.5 3.7 (3.5-5.0) g/dL Calcium panel 01/27/24 01/28/24 Range/Units 21:02 06:11 Calcium 9.5 8.5 (8.4-10.2) mg/dL Phosphorus 4.6 H (2.5-4.5) mg/dL Albumin 4.5 3.7 (3.5-5.0) g/dL Pituitary panel 01/27/24 01/28/24 Range/Units 21:02 06:11 Sodium 137 138 (137-145) mmol/L Potassium 4.1 4.2 (3.5-5.1) mmol/L Chloride 104 106 (98-107) mmol/L Carbon Dioxide 26 27 (22-30) mmol/L BUN 24 H 20 (9-20) mg/dL Creatinine 0.98 0.96 (0.66-1.25) mg/dL Glucose 127 H 104 H (74-99) mg/dL Calcium 9.5 8.5 (8.4-10.2) mg/dL Adrenal panel 01/27/24 01/28/24 Range/Units 21:02 06:11 Sodium 137 138 (137-145) mmol/L Potassium 4.1 4.2 (3.5-5.1) mmol/L Chloride 104 106 (98-107) mmol/L Carbon Dioxide 26 27 (22-30) mmol/L BUN 24 H 20 (9-20) mg/dL Creatinine 0.98 0.96 (0.66-1.25) mg/dL Glucose 127 H 104 H (74-99) mg/dL Calcium 9.5 8.5 (8.4-10.2) mg/dL Total Bilirubin 0.6 0.4 (0.2-1.3) mg/dL AST 46 36 (17-59) U/L ALT 57 H 45 (4-49) U/L Alkaline Phosphatase 88 76 (38-126) U/L Total Protein 7.7 6.5 (6.3-8.2) g/dL Albumin 4.5 3.7 (3.5-5.0) g/dL
--- NOTE | 2024-01-28 14:02 | P.CRDCN ---
History of Present Illness Consult date: 01/28/24 Reason for Consult (text): EKG changes, cardiac risk assessment History of present illness: This is a 73-year-old male patient of Dr. Franklin with past medical history of hypertension, hyperlipidemia, CAD, atrial fibrillation on Eliquis. We have been asked to evaluate the patient for EKG changes and cardiac risk assessment. Patient presented to the hospital due to abdominal pain and nausea no vomiting. He did not take his blood thinners last evening. He has been seen by general surgery and is scheduled for exploratory laparotomy and lysis of adhesions this afternoon. Eliquis and Brilinta have been placed on hold. Blood pressure 120/77, heart rate 64, pulse ox 96% on room air. Dr. Franklin spoke with Dr. Cabrera on the phone and patient is considered an urgent need of abdominal surgery. Patient is at increased risk for stent thrombosis and recommended aspirin to be given as it is too late now to start patient on heparin drip. He is scheduled for surgery this afternoon. -EKG reviewed -CT abdomen and pelvis: Findings concerning for closed-loop obstruction with 2 focal transition points in the left Eduar abdomen likely secondary to volvulus and/or internal hernia. -Laboratory studies: WBC 4.1, hemoglobin 10.4. Electrolytes and renal function within normal limits. -Home cardiac medications: Eliquis 5 mg twice daily, atorvastatin 40 mg daily, Zetia 10 mg daily, Toprol-XL 50 mg daily, Brilinta 90 mg twice daily. -Left heart catheterization 12/16/2023 which revealed CAD 30% proximal LAD, 40% mid LAD, 30% proximal circumflex, 75% proximal OM1, patent proximal to mid RCA stents with 30 to 40% proximal PDA stenosis. High normal left-sided filling pressures. Patient underwent PCI of the OM1 with IKE. -Echocardiogram performed 11/23/2023 revealed normal left ventricular size and systolic function. Small pericardial effusion echogenic area probably representing clot. Review Of Systems: At the time of my exam: CONSTITUTIONAL: Denies fever or chills. HEENT: Denies blurred vision, vision changes, or eye pain. Denies hemoptysis CARDIOVASCULAR: Denies chest pain. Denies orthopnea. Denies PND. Denies palpitations RESPIRATORY: Denies shortness of breath. GASTROINTESTINAL: Denies abdominal pain. Reports nausea no vomiting. HEMATOLOGIC: Denies bleeding disorders. GENITOURINARY: Denies any blood in urine. SKIN: Denies puritis. Denies rash. Physical examination: Gen: This is 73-year-old male in no acute distress VS: reviewed HEENT: Head is atraumatic, normocephalic. Pupils equal, round. Sclerae is anicte hasmukh. NECK: Supple. No JVD. LUNGS: Clear to auscultation. No wheezes or rhonchi. No intercostal re tractions. HEART: Irregular rate and rhythm. No murmur. ABDOMEN: Soft No tenderness. EXTREMITIES: No pedal edema. No calf tenderness. NEUROLOGICAL: Patient is awake, alert and oriented x3. Assessment: Bowel obstruction scheduled for lysis of adhesions today Coronary artery disease with recent stenting 10 11/2023 of the OM1 Paroxysmal atrial fibrillation Hypertension Hyperlipidemia Plan: Resume patient's home cardiac medications Hold Eliquis and Brilinta for now until cleared by general surgery Start patient on aspirin 324 mg today followed by 81 mg daily No need to repeat echocardiogram Patient is at high risk for stent thrombosis and will need to be monitored closely. Surgical intervention is necessary and to be urgently performed. No absolute contraindications to surgery. Further recommendations to follow based upon clinical course Thank you kindly for this consultation. Nurse practitioner note has been reviewed, I agree with documented findings and plan of care. Patient was seen and examined. Past Medical History Past Medical History: Hyperlipidemia, Myocardial Infarction (LA), Osteoarthritis (OA) Additional Past Medical History / Comment(s): bowel obs w/necrosis, bowel obs r/t adhesions, WBC LOW Last Myocardial Infarction Date:: 10/23/23 History of Any Multi-Drug Resistant Organisms: None Reported Past Surgical History: Heart Catheterization With Stent Additional Past Surgical History / Comment(s): steven thumb,steven elbows,steven shoulders,steven inguinal hernia,femoral hernia,laparotomy w/ lysis of adhesions, BILAT FOOT SX, COLONOSCOPY, Past Anesthesia/Blood Transfusion Reactions: Postoperative Nausea & Vomiting (PONV) Additional Past Anesthesia/Blood Transfusion Reaction / Comment(s): no blood transfusion reaction Date of Last Stent Placement:: 10/25/23 Past Psychological History: No Psychological Hx Reported Smoking Status: Never smoker Past Alcohol Use History: Daily Past Drug Use History: None Reported - Past Family History Mother Family Medical History: Cancer, Deep Vein Thrombosis (DVT) Additional Family Medical History / Comment(s): melanoma Father Family Medical History: Cancer Additional Family Medical History / Comment(s): prostate cancer Brother(s) Family Medical History: Cancer Additional Family Medical History / Comment(s): multiple myeloma Medications and Allergies Home Medications Medication Instructions Recorded Confirmed Type Apixaban [Eliquis] 5 mg PO BID #180 tab 11/04/23 01/28/24 Rx Atorvastatin [Lipitor] 40 mg PO DAILY tab 11/04/23 01/28/24 Rx Ezetimibe [Zetia] 10 mg PO DAILY tab 11/04/23 01/28/24 Rx Metoprolol Succinate (ER) [Toprol 50 mg PO DAILY 30 Days #30 tab 11/04/23 01/28/24 Rx XL] Ticagrelor [Brilinta] 90 mg PO BID 30 Days #60 tab 11/04/23 01/28/24 Rx Ferrous Sulfate [Iron] 325 mg PO DAILY 12/09/23 01/28/24 History Tamsulosin HCl [Flomax] 0.4 mg PO HS 01/28/24 01/28/24 History Allergies Allergy/AdvReac Type Severity Reaction Status Date / Time fluoride Allergy Swelling Verified 01/28/24 07:41 in mouth, itching, rash Penicillins Allergy Rash/Hives Verified 01/28/24 07:41 propoxyphene Allergy Itching Verified 01/28/24 07:41 [From Darvojaycet-N] ibuprofen AdvReac Abdominal Verified 01/28/24 07:41 Pain/gas Physical Exam Vitals: Vital Signs Temp Pulse Resp BP Pulse Ox 01/28/24 09:58 64 18 120/77 96 01/28/24 06:45 62 16 104/63 95 01/28/24 03:30 57 L 16 96 01/28/24 01:07 52 L 18 108/68 97 01/28/24 00:30 43 L 18 105/57 97 01/27/24 19:39 98.2 F 66 18 147/81 100 Intake and Output 01/27/24 01/28/24 01/28/24 22:59 06:59 14:59 Other: Weight 79.379 kg Results 01/28/24 06:11 01/28/24 06:11 Cardiac Enzymes 01/27/24 01/28/24 Range/Units 21:02 06:11 AST 46 36 (17-59) U/L Coagulation 01/28/24 Range/Units 08:55 PT 12.2 (10.0-12.5) sec CBC 01/27/24 01/28/24 Range/Units 21:02 06:11 WBC 2.2 L 4.1 (3.8-10.6) k/uL RBC 3.39 L 3.06 L (4.30-5.90) m/uL Hgb 11.5 L 10.4 L (13.0-17.5) gm/dL Hct 36.1 L 33.4 L (39.0-53.0) % Plt Count 160 155 (150-450) k/uL Comprehensive Metabolic Panel 01/27/24 01/28/24 Range/Units 21:02 06:11 Sodium 137 138 (137-145) mmol/L Potassium 4.1 4.2 (3.5-5.1) mmol/L Chloride 104 106 (98-107) mmol/L Carbon Dioxide 26 27 (22-30) mmol/L BUN 24 H 20 (9-20) mg/dL Creatinine 0.98 0.96 (0.66-1.25) mg/dL Glucose 127 H 104 H (74-99) mg/dL Calcium 9.5 8.5 (8.4-10.2) mg/dL AST 46 36 (17-59) U/L ALT 57 H 45 (4-49) U/L Alkaline Phosphatase 88 76 (38-126) U/L Total Protein 7.7 6.5 (6.3-8.2) g/dL Albumin 4.5 3.7 (3.5-5.0) g/dL Current Medications Generic Name Dose Route Start Last Admin Trade Name Freq PRN Reason Stop Dose Admin Hydromorphone HCl 1 mg 01/27/24 21:26 01/28/24 05:19 Hydromorphone 1 Mg/Ml 1 Ml Syringe IVP 1 mg Q3HR PRN Administration Severe Pain (Scale 7 to 10) Sodium Chloride 1,000 mls @ 75 mls/hr 01/27/24 21:30 01/27/24 23:29 Saline 0.9% IV 75 mls/hr .[id number] SANDEEP Administration Levofloxacin 750 mg/ IV 150 mls @ 100 mls/hr 01/28/24 22:00 Solution IVPB Q24H SANDEEP Protocol Metronidazole 500 mg/ IV 100 mls @ 100 mls/hr 01/28/24 08:00 01/28/24 07:44 Solution IVPB 100 mls/hr Q8HR SANDEEP Administration Protocol Naloxone HCl 0.2 mg 01/27/24 21:26 Naloxone 0.4 Mg/Ml 1 Ml Vial IV Q2M PRN Opioid Reversal Ondansetron HCl 4 mg 01/27/24 21:26 Ondansetron 4 Mg/2 Ml Vial IVP Q8HR PRN Nausea And Vomiting Pantoprazole Sodium 40 mg 01/28/24 09:00 01/28/24 09:54 Pantoprazole 40 Mg/10 Ml Vial IV 40 mg DAILY SANDEEP Administration Intake and Output 01/27/24 01/28/24 01/28/24 22:59 06:59 14:59 Other: Weight 79.379 kg 01/28/24 06:11 01/28/24 06:11
[2024-01-28] MEDS: MIDAZOLAM 2 MG/2 ML VIAL IV ONE (15:42)
--- NOTE | 2024-01-28 15:56 | P.ANPRN ---
Procedure Note - Anesthesia - Nerve Block Performed Bilateral Erector Spinae Single Time Out Performed: Yes Date of Procedure: 01/28/24 Procedure Start Time: 15:41 Procedure Stop Time: 15:46 Location of Patient: PreOp Indication: Acute Post-Operative Pain, Analgesia, Requested by Surgeon Sedation Type: Sedate with meaningful contact maintained Preparation: Sterile Prep Position: Sitting Catheter: None Needle Types: Pajunk Needle Gauge: 21 Ultrasound used to visualize needle placement: Yes Ultrasound used to observe medication spread: Yes Injectate: 0.5% Ropivacaine (see comment for volume) (Ropiv 20ml+Decadron 4mg---Each side. Needle level T10.) Blood Aspirated: No Pain Paresthesia on Injection Noted: No Resistance on Injection: Normal Image Stored and Saved: Yes Events: Uneventful and Well Tolerated
[2024-01-28] MEDS: FAMOTIDINE 20 MG/2 ML VIAL IV STA (16:06)
[2024-01-28] MEDS: DEXAMETHASONE SOD PHOSPHATE 4 MG/ML 1 ML VIAL IVP STA (16:07)
[2024-01-28] MEDS: IV FLUID CONTINUATION 1,000 ML IV ONE (16:14)
[2024-01-28] MEDS ORDERED: PROPOFOL 10 MG/ML 20 ML VIAL IV ONE (16:24)
[2024-01-28] MEDS ORDERED: DEXAMETHASONE SOD PHOSPHATE 4 MG/ML 1 ML VIAL ONE (16:24)
[2024-01-28] MEDS ORDERED: GLYCOPYRROLATE 0.2 MG/ML 2 ML VIAL ONE (16:24)
[2024-01-28] MEDS ORDERED: NEOSTIGMINE 1 MG/ML 10 ML VIAL ONE (16:24)
[2024-01-28] MEDS ORDERED: MIDAZOLAM 2 MG/2 ML VIAL ONE (16:24)
[2024-01-28] MEDS ORDERED: ROPIVACAINE 5 MG/ML 30 ML VIAL ONE (16:24)
[2024-01-28] MEDS ORDERED: fentaNYL (PF) 50 MCG/ML 2 ML AMP ONE (16:24)
[2024-01-28] MEDS ORDERED: ROCURONIUM 10 MG/ML (5 ML VIAL) IV ONE (16:24)
[2024-01-28] MEDS ORDERED: LIDOCAINE 1% INJ 10MG/ML (20 ML MDV) ONE (16:24)
[2024-01-28] MEDS ORDERED: SUCCINYLCHOLINE CHLORIDE 200 MG/10 ML VIAL IV ONE (16:24)
[2024-01-28] MEDS: LACTATED RINGERS 1,000 ML IV ONE (17:10)
--- NOTE | 2024-01-28 17:20 | P.OP ---
Date of Procedure: 01/28/24 Preoperative Diagnosis: Closed-loop bowel obstruction Postoperative Diagnosis: Closed-loop bowel obstruction secondary to adhesions Incisional hernia Procedure(s) Performed: Exploratory laparotomy Lysis of adhesions Repair of incisional hernia, 3 cm Partial vasectomy Anesthesia: FANI Surgeon: Jonny Cabrera Estimated Blood Loss (ml): 5 Pathology: other (Omentum) Condition: stable Disposition: PACU Description of Procedure: The patient was placed on the operative table in supine position. He received general endotracheal tube anesthesia. His abdomen was prepped and draped y in the usual sterile fashion. The abdomen is a history of midline scar. There were few adhesions to anterior bowel wall. There was also noted to be an incisional hernia measuring approximate 3 cm. The incarcerated fat and hernia sac were dissected free sent to pathology. The small bowel was run. There appeared to be evidence of a closed-loop obstruction in the jejunum. This was lysed with sharp dissection. The bowel appeared to be viable. The bowel was then run a from the ligament of Treitz to the ileocecal valve. No other obstruction was seen. The fascia was then closed with looped #1 PDS suture. The repair was repaired during fascial closure. Skin was closed juany. Ramin jackson tolerated the er procedure well. Sent to recovery in stable condition.
[2024-01-28] MEDS: HYDROmorphone 0.5 MG/0.5 ML SYRINGE IVP STA (17:44)
--- NOTE | 2024-01-28 17:48 | P.CONS ---
History of Present Illness - Reason for Consult Consult date: 01/28/24 - History of Present Illness 73 year old M with PMH of CAD post stent placed on 12/16/2023, HTN, HLD, AFib presents to the ED for abdominal pain. Pain started yesterday afternoon around 2:30PM. Reports nausea but no vomiting. In the ED he underwent extensive evaluation. BP 147/81, HR 66, T 98.2F, RR 18, 100% on RA. CBC, Coag panel, CMP significant for RBC 2.2, RBC 3.39, Hg 11.5, Hct 36.1, MCV 106.7, BUN 24, glu 127, ALT 57. Lactic acid 1.0. Mag 2.2. Phos 4.6. EtOH < 10. Lipase and Amylase [address] AP showed closed loop obstruction with 2 focal transition points in the L hemiabdomen likely secondary to volvulus. Cardiology discussed the case with Dr. Cabrera, given his recent stent placement, patient is high risk for cardiac complications. Patient understood the risk and would like to proceed with surgery. General: non toxic, no distress, appears at stated age Derm: warm, dry Head: atraumatic, normocephalic, symmetric Eyes: EOMI, no lid lag, anicteric sclera Mouth: no lip lesion, mucus membranes moist Cardiovascular: S1S2 irreg, no murmur Lungs: CTA bilateral, no rhonchi, no rales , no accessory muscle use Abdominal: soft, nontender to palpation, no guarding, no appreciable organomega ly, no bowel sounds appreciated Ext: no gross muscle atrophy, no edema, no contractures Neuro: no focal neuro deficits Psych: Alert, oriented, appropriate affect Based on my assessment of this patient, this patient meets a high complexity level of care. Bowel obstruction: Possible volvulus. Plans for exploratory laparotomy today. CAD post stent placed on 12/16/2023: Hold Brilinta. ASA 81 mg PO QD. Above risk for cardiac complication, PNA, renal failure, discharge to SNF, sepsis which was discussed with the patient. He would like to proceed to surgery. Telemetry monitoring post op. Cardiology on board. HTN: Metoprolol 50 mg PO QD. HLD: Zetia 10 mg PO QD. AFib: Metoprolol as above. Eliquis 5 mg PO BID when OK with Surgery. CODE STATUS: FULL CODE DVT Prophylaxis: Per Surgery GI Prophylaxis: Protonix IV Designated medical POA if patient is not able to make medical decisions for themselves: I have reviewed the following golf tournament consultant notes: Cardiology, Surgery. I have reviewed the results of the following tests: As above I have ordered the following tests: As above I have discussed the care of this patient with the following independent historian: Family at bedside. I have independently interpreted the following test below: I have discussed the management of this patient with the following physician: Past Medical History Past Medical History: Hyperlipidemia, Myocardial Infarction (NH), Osteoarthritis (OA) Additional Past Medical History / Comment(s): bowel obs w/necrosis, bowel obs r/t adhesions, WBC LOW Last Myocardial Infarction Date:: 10/23/23 History of Any Multi-Drug Resistant Organisms: None Reported Past Surgical History: Heart Catheterization With Stent Additional Past Surgical History / Comment(s): steven thumb,steven elbows,steven shoulders,steven inguinal hernia,femoral hernia,laparotomy w/ lysis of adhesions, BILAT FOOT SX, COLONOSCOPY, Past Anesthesia/Blood Transfusion Reactions: Postoperative Nausea & Vomiting (PONV) Additional Past Anesthesia/Blood Transfusion Reaction / Comm: no blood transfusion reaction Date of Last Stent Placement:: 10/25/23 Past Psychological History: No Psychological Hx Reported Smoking Status: Never smoker Past Alcohol Use History: Daily Past Drug Use History: None Reported - Past Family History Mother Family Medical History: Cancer, Deep Vein Thrombosis (DVT) Additional Family Medical History / Comment(s): melanoma Father Family Medical History: Cancer Additional Family Medical History / Comment(s): prostate cancer Brother(s) Family Medical History: Cancer Additional Family Medical History / Comment(s): multiple myeloma Medications and Allergies Home Medications Medication Instructions Recorded Confirmed Type Apixaban [Eliquis] 5 mg PO BID #180 tab 11/04/23 01/28/24 Rx Atorvastatin [Lipitor] 40 mg PO DAILY tab 11/04/23 01/28/24 Rx Ezetimibe [Zetia] 10 mg PO DAILY tab 11/04/23 01/28/24 Rx Metoprolol Succinate (ER) [Toprol 50 mg PO DAILY 30 Days #30 tab 11/04/23 01/28/24 Rx XL] Ticagrelor [Brilinta] 90 mg PO BID 30 Days #60 tab 11/04/23 01/28/24 Rx Ferrous Sulfate [Iron] 325 mg PO DAILY 12/09/23 01/28/24 History Tamsulosin HCl [Flomax] 0.4 mg PO HS 01/28/24 01/28/24 History Allergies Allergy/AdvReac Type Severity Reaction Status Date / Time fluoride Allergy Swelling Verified 01/28/24 16:13 in mouth, itching, rash Penicillins Allergy Rash/Hives Verified 01/28/24 16:13 propoxyphene Allergy Itching Verified 01/28/24 16:13 [From Brayan-N] ibuprofen AdvReac Abdominal Verified 01/28/24 16:13 Pain/gas Physical Exam Vitals: Vital Signs Temp Pulse Pulse Pulse Resp BP BP 01/28/24 17:30 59 L 18 01/28/24 17:17 97.1 F L 63 20 01/28/24 16:14 98.3 F 63 18 120/68 01/28/24 14:32 68 16 113/66 01/28/24 09:58 64 18 120/77 01/28/24 06:45 62 16 104/63 01/28/24 03:30 57 L 16 01/28/24 01:07 52 L 18 108/68 01/28/24 00:30 43 L 18 105/57 01/27/24 19:39 98.2 F 66 18 147/81 BP Pulse Ox 01/28/24 17:30 119/60 100 01/28/24 17:17 114/57 97 01/28/24 16:14 99 01/28/24 14:32 95 01/28/24 09:58 96 01/28/24 06:45 95 01/28/24 03:30 96 01/28/24 01:07 97 01/28/24 00:30 97 01/27/24 19:39 100 Intake and Output 01/28/24 01/28/24 01/28/24 06:59 14:59 22:59 Intake Total 900 Output Total 310 Balance 590 Intake: IV 900 Output: Urine 300 Estimated Blood Loss 10 Results CBC & Chem 7: 01/28/24 06:11 01/28/24 06:11 Labs: Abnormal Lab Results - Last 24 Hours (Table) 01/27/24 01/27/24 01/28/24 Range/Units 21:02 21:02 06:11 WBC 2.2 L (3.8-10.6) k/uL RBC 3.39 L 3.06 L (4.30-5.90) m/uL Hgb 11.5 L 10.4 L (13.0-17.5) gm/dL Hct 36.1 L 33.4 L (39.0-53.0) % MCV 106.7 H 109.3 H (80.0-100.0) fL RDW 15.6 H (11.5-15.5) % Lymphocytes # 0.6 L 0.6 L (1.0-4.8) k/uL Macrocytosis Marked A BUN 24 H (9-20) mg/dL Glucose 127 H (74-99) mg/dL Phosphorus (2.5-4.5) mg/dL ALT 57 H (4-49) U/L 01/28/24 Range/Units 06:11 WBC (3.8-10.6) k/uL RBC (4.30-5.90) m/uL Hgb (13.0-17.5) gm/dL Hct (39.0-53.0) % MCV (80.0-100.0) fL RDW (11.5-15.5) % Lymphocytes # (1.0-4.8) k/uL Macrocytosis BUN (9-20) mg/dL Glucose 104 H (74-99) mg/dL Phosphorus 4.6 H (2.5-4.5) mg/dL ALT (4-49) U/L
[2024-01-28] MEDS: LEVOFLOXACIN 750MG-D5W PMX 750 MG in DEXTROSE/WATER 1 150ML.BAG IVPB SCH (21:45)
[2024-01-29] MEDS: ASPIRIN 81 MG PO SCH (08:58)
--- NOTE | 2024-01-29 12:39 | P.PN ---
Subjective HISTORY OF PRESENT ILLNESS: This is a 73-year-old male patient of Dr. Franklin with past medical history of hypertension, hyperlipidemia, CAD, atrial fibrillation on Eliquis. We have been asked to evaluate the patient for EKG changes and cardiac risk assessment. Patient presented to the hospital due to abdominal pain and nausea no vomiting. He did not take his blood thinners last evening. He has been seen by general surgery and is scheduled for exploratory laparotomy and lysis of adhesions this afternoon. Eliquis and Brilinta have been placed on hold. Blood pressure 120/77, heart rate 64, pulse ox 96% on room air. Dr. Franklin spoke with Dr. Cabrera on the phone and patient is considered an urgent need of abdominal surgery. Patient is at increased risk for stent thrombosis and recommended aspirin to be given as it is too late now to start patient on heparin drip. He is scheduled for surgery this afternoon. -EKG reviewed -CT abdomen and pelvis: Findings concerning for closed-loop obstruction with 2 focal transition points in the left Eduar abdomen likely secondary to volvulus and/or internal hernia. -Laboratory studies: WBC 4.1, hemoglobin 10.4. Electrolytes and renal function within normal limits. -Home cardiac medications: Eliquis 5 mg twice daily, atorvastatin 40 mg daily, Zetia 10 mg daily, Toprol-XL 50 mg daily, Brilinta 90 mg twice daily. -Left heart catheterization 12/16/2023 which revealed CAD 30% proximal LAD, 40% mid LAD, 30% proximal circumflex, 75% proximal OM1, patent proximal to mid RCA stents with 30 to 40% proximal PDA stenosis. High normal left-sided filling pressures. Patient underwent PCI of the OM1 with IKE. -Echocardiogram performed 11/23/2023 revealed normal left ventricular size and sy stolic function. Small pericardial effusion echogenic area probably representing clot. 01/29/2024 Patient is status post exploratory laparotomy, lysis of adhesions, and repair of incisional hernia. Patient examined at the bedside. Patient currently denies chest pain or pressure. He denies shortness of breath. He is tolerating clear liquid diet. Vital signs are stable. He has been cleared to resume Eliquis and Brilinta tonight per general surgery. PHYSICAL EXAM: VITAL SIGNS: Reviewed. GENERAL: Well-developed in no acute distress. NECK: Supple. No JVD or thyromegaly LUNGS: Respirations even and unlabored. Lungs essentially clear to auscultation bilaterally. HEART: Regular rate and rhythm. S1 and S2 heard. EXTREMITIES: Normal range of motion. No clubbing or cyanosis. Peripheral pulses intact. No lower extremity edema ASSESSMENT: Bowel obstruction status post exploratory laparotomy, lysis of adhesions, and repair of incisional hernia Coronary artery disease with recent stenting 10 11/2023 of the OM1 Paroxysmal atrial fibrillation Hypertension Hyperlipidemia PLAN: Continue current cardiac medications Patient has been cleared to resume Eliquis and Brilinta tonight per general surgery. Discontinue aspirin. Patient is currently stable from a cardiac standpoint We will sign off. Please reconsult if needed. Nurse practitioner note has been reviewed by physician. Signing provider agrees with the documented findings, assessment, and plan of care documented by STOCK HOLDER as a scribe. Objective - Vital Signs Vital signs: Vital Signs Temp 98.1 F 01/29/24 07:22 Pulse 73 01/29/24 07:22 Resp 18 01/29/24 07:22 BP 106/60 01/29/24 07:22 Pulse Ox 99 01/29/24 07:22 FiO2 Intake & Output 01/28/24 01/29/24 01/29/24 18:59 06:59 18:59 Intake Total 1600 480 Output Total 310 1300 Balance 1290 -820 Weight 79.379 kg Intake: IV 1600 Oral 480 Output: Urine 300 1300 Estimated Blood Loss 10 Other: Voiding Method Indwelling Catheter Indwelling Catheter - Labs CBC & Chem 7: 01/28/24 06:11 01/28/24 06:11
--- NOTE | 2024-01-29 14:08 | P.PN ---
Subjective Progress Note Date: 01/29/24 SURGICAL PROGRESS NOTE CHIEF COMPLAINT: Closed-loop bowel obstruction HISTORY OF PRESENT ILLNESS: Patient is postop day #1 status post exploratory laparotomy with lysis of adhesions, repair of incisional hernia and partial vasectomy. Patient denies any flatus. He reports his pain is controlled. Afebrile. Patient seen and examined with Dr. Cabrera PHYSICAL EXAM: VITAL SIGNS: Reviewed. GENERAL: Well-developed in no acute distress. ABDOMEN: Soft. Nondistended. NEUROLOGIC: Alert and oriented. Cranial nerves II through XII grossly intact. ASSESSMENT: 1. Closed-loop bowel obstruction 2. Prior history of abdominal surgeries 3. Prior history of bowel obstruction requiring lysis of adhesions 4. History of MT 3 months ago and coronary disease with cardiac stents. Last stent December 2023 PLAN: -Continue clear liquid diet -Encourage patient to ambulate -Encourage patient to use incentive spirometer -Continue pain management -Okay to resume Eliquis and Brilinta after 7:00 tonight. Discussed with cardiology CHAIR UPHOLSTERER. Physician Pinball Machine Repairer note has been reviewed by physician. Signing provider agrees with the documented findings, assessment, and plan of care. Objective - Vital Signs Vital signs: Vital Signs Temp 98.1 F 01/29/24 07:22 Pulse 73 01/29/24 07:22 Resp 18 01/29/24 07:22 BP 106/60 01/29/24 07:22 Pulse Ox 99 01/29/24 07:22 FiO2 Intake & Output 01/28/24 01/29/24 01/29/24 18:59 06:59 18:59 Intake Total 1600 480 200 Output Total 310 1300 Balance 1290 -820 200 Weight 79.379 kg Intake: IV 1600 Oral 480 200 Output: Urine 300 1300 Estimated Blood Loss 10 Other: Voiding Method Indwelling Catheter Indwelling Catheter - Labs CBC & Chem 7: 01/28/24 06:11 01/28/24 06:11
--- NOTE | 2024-01-29 14:39 | P.PN ---
Subjective Progress Note Date: 01/29/24 73 year old M with PMH of CAD post stent placed on 12/16/2023, HTN, HLD, AFib presents to the ED for abdominal pain. Pain started yesterday afternoon around 2:30PM. Reports nausea but no vomiting. In the ED he underwent extensive evaluation. BP 147/81, HR 66, T 98.2F, RR 18, 100% on RA. CBC, Coag panel, CMP significant for RBC 2.2, RBC 3.39, Hg 11.5, Hct 36.1, MCV 106.7, BUN 24, glu 127, ALT 57. Lactic acid 1.0. Mag 2.2. Phos 4.6. EtOH < 10. Lipase and Amylase [address] AP showed closed loop obstruction with 2 focal transition points in the L hemiabdomen likely secondary to volvulus. Cardiology discussed the case with Dr. Cabrera, given his recent stent placement, patient is high risk for cardiac complications. Patient understood the risk and would like to proceed with surgery. 01/28 Patient was seen and examined. Reports moderate pain at the incision site. Denies nausea or vomiting. Not passing gas yet. Also with Mathew. General: non toxic, no distress, appears at stated age Derm: warm, dry Head: atraumatic, normocephalic, symmetric Eyes: EOMI, no lid lag, anicteric sclera Mouth: no lip lesion, mucus membranes moist Cardiovascular: S1S2 irreg, no murmur Lungs: CTA bilateral, no rhonchi, no rales , no accessory muscle use Ext: no gross muscle atrophy, no edema, no contractures Neuro: no focal neuro deficits Psych: Alert, oriented, appropriate affect Based on my assessment of this patient, this patient meets a high complexity level of care. Bowel obstruction: Possible volvulus. Status post exploratory laparotomy 01/28. Management per Surgery. CAD post stent placed on 12/16/2023: Plans to restart Brilinta at 7PM. ASA 81 mg PO QD. Above risk for cardiac complication, PNA, renal failure, discharge to SNF, sepsis which was discussed with the patient. He would like to proceed to surgery. Telemetry monitoring post op. Cardiology on board. HTN: Holding Metoprolol 50 mg PO QD for low-normal BP. HLD: Holding Zetia 10 mg PO QD until diet advanced. AFib: Metoprolol no hold. Eliquis 5 mg PO BID to restart at 7PM. CODE STATUS: FULL CODE DVT Prophylaxis: Per Surgery GI Prophylaxis: Protonix IV Designated medical POA if patient is not able to make medical decisions for themselves: I have reviewed the following financial planning consultant notes: Cardiology, Surgery. I have reviewed the results of the following tests: As above I have ordered the following tests: As above I have discussed the care of this patient with the following independent historian: I have independently interpreted the following test below: I have discussed the management of this patient with the following physician: Objective - Vital Signs Vital signs: Vital Signs Temp 98.1 F 01/29/24 07:22 Pulse 73 01/29/24 07:22 Resp 18 01/29/24 07:22 BP 106/60 01/29/24 07:22 Pulse Ox 99 01/29/24 07:22 FiO2 Intake & Output 01/28/24 01/29/24 01/29/24 18:59 06:59 18:59 Intake Total 1600 480 200 Output Total 310 1300 Balance 1290 -820 200 Weight 79.379 kg Intake: IV 1600 Oral 480 200 Output: Urine 300 1300 Estimated Blood Loss 10 Other: Voiding Method Indwelling Catheter Indwelling Catheter - Labs CBC & Chem 7: 01/28/24 06:11 01/28/24 06:11
[2024-01-29] MEDS: APIXABAN 5 MG TAB PO SCH (21:14)
[2024-01-29] MEDS: TICAGRELOR 90 MG TAB PO SCH (21:14)
[2024-01-30 03:57] LABS: HCT 29.9 % (39.0-53.0); HGB 9.6 gm/dL (13.0-17.5); Hypochromasia Slight; MCH 34.6 pg (25.0-35.0); MCHC 31.9 g/dL (31.0-37.0); MCV 108.3 fL (80.0-100.0); Macrocytosis Marked; Mean Platelet Volume 10.3; Platelet Count 146 k/uL (150-450); RBC 2.76 m/uL (4.30-5.90); RDW 15.7 % (11.5-15.5); WBC 6.5 k/uL (3.8-10.6)
[2024-01-30 04:13] LABS: African American GFR (CKD) >90 (>60 ml/min/1.73 sqM); Anion Gap 4 mmol/L; Blood Urea Nitrogen 15 mg/dL (9-20); Calcium 8.4 mg/dL (8.4-10.2); Carbon Dioxide 23 mmol/L (22-30); Chloride 108 mmol/L (98-107); Glucose 108 mg/dL (74-99); Non-African American GFR(CKD) 87 (>60 ml/min/1.73 sqM); Sodium 135 mmol/L (137-145)
[2024-01-30] MEDS: ATORVASTATIN 40 MG TAB PO SCH (10:46)
[2024-01-30] MEDS: METOPROLOL SUCCINATE (ER) 50 MG TAB.ER.24H PO SCH (10:46)
[2024-01-30] MEDS: EZETIMIBE 10 MG TAB PO SCH (10:46)
--- NOTE | 2024-01-30 10:55 | P.PN ---
Subjective Progress Note Date: 01/30/24 Principal diagnosis: Small bowel obstruction 73-year-old male doing well today. Passing flatus. No nausea or vomiting. Tolerating clears. Asking for more to eat. Objective - Vital Signs Vital signs: Vital Signs Temp 97.6 F 01/30/24 07:23 Pulse 77 01/30/24 07:23 Resp 18 01/30/24 07:23 BP 159/80 01/30/24 07:23 Pulse Ox 96 01/30/24 07:23 FiO2 Intake & Output 01/29/24 01/30/24 01/30/24 18:59 06:59 18:59 Intake Total 400 Output Total 1150 Balance 400 -1150 Intake: Oral 400 Output: Urine 1150 Other: Voiding Method Indwelling Catheter Toilet Urinal # Voids 2 2 - Exam Abdomen: Soft, nondistended, incision clean and dry - Labs CBC & Chem 7: 01/30/24 02:44 01/30/24 02:44 Labs: Abnormal Lab Results - Last 24 Hours (Table) 01/30/24 01/30/24 Range/Units 02:44 02:44 RBC 2.76 L (4.30-5.90) m/uL Hgb 9.6 L (13.0-17.5) gm/dL Hct 29.9 L (39.0-53.0) % MCV 108.3 H (80.0-100.0) fL RDW 15.7 H (11.5-15.5) % Plt Count 146 L (150-450) k/uL Macrocytosis Marked A Sodium 135 L (137-145) mmol/L Chloride 108 H (98-107) mmol/L Glucose 108 H (74-99) mg/dL Assessment and Plan Plan: Patient doing well today. Advance to full liquids. Ambulate. Flomax for some urinary retention issues.
--- NOTE | 2024-01-30 13:11 | P.PN ---
Subjective Progress Note Date: 01/30/24 73 year old M with PMH of CAD post stent placed on 12/16/2023, HTN, HLD, AFib presents to the ED for abdominal pain. Pain started yesterday afternoon around 2:30PM. Reports nausea but no vomiting. In the ED he underwent extensive evaluation. BP 147/81, HR 66, T 98.2F, RR 18, 100% on RA. CBC, Coag panel, CMP significant for RBC 2.2, RBC 3.39, Hg 11.5, Hct 36.1, MCV 106.7, BUN 24, glu 127, ALT 57. Lactic acid 1.0. Mag 2.2. Phos 4.6. EtOH < 10. Lipase and Amylase [address] AP showed closed loop obstruction with 2 focal transition points in the L hemiabdomen likely secondary to volvulus. Cardiology discussed the case with Dr. Cabrera, given his recent stent placement, patient is high risk for cardiac complications. Patient understood the risk and would like to proceed with surgery. Underwent ex lap with lysis of adhesions on 01/27. 01/29 Patient was seen and examined. Passing gas. Mathew discontinued, he reports difficulty urinating and maintaining a stream. CBC and BMP significant for RBC 2.76, Hg 9.6, Hct 29.9, MCV 108.3, Plt 146, Na 135, Cl 108, glu 108. General: non toxic, no distress, appears at stated age Derm: warm, dry Head: atraumatic, normocephalic, symmetric Eyes: EOMI, no lid lag, anicteric sclera Mouth: no lip lesion, mucus membranes moist Cardiovascular: S1S2 irreg, no murmur Lungs: CTA bilateral, no rhonchi, no rales , no accessory muscle use Ext: no gross muscle atrophy, no edema, no contractures Neuro: no focal neuro deficits Psych: Alert, oriented, appropriate affect Based on my assessment of this patient, this patient meets a high complexity l evel of care. Bowel obstruction: Possible volvulus. Status post exploratory laparotomy 01/28. Stop Levaquin and Flagyl. Management per Surgery. Urinary retention: Likely due to BPH. Increase Flomax to 0.4 mg PO BID. Bladder scan PRN. CAD post stent placed on 12/16/2023: Brilinta 90 mg PO BID. Eliquis 5 mg PO BID. Above risk for cardiac complication, PNA, renal failure, discharge to SNF, sepsis which was discussed with the patient. He would like to proceed to surgery. Telemetry monitoring post op. Cardiology on board. HTN: Restart Metoprolol 50 mg PO QD. HLD: Restart Zetia 10 mg PO QD. AFib: Metoprolol as above. Eliquis 5 mg PO BID for AC. CODE STATUS: FULL CODE DVT Prophylaxis: Eliquis GI Prophylaxis: Protonix IV Designated medical POA if patient is not able to make medical decisions for themselves: I have reviewed the following software developer consultant notes: Cardiology, Surgery. I have reviewed the results of the following tests: CBC, BMP. I have ordered the following tests: I have discussed the care of this patient with the following independent historian: I have independently interpreted the following test below: I have discussed the management of this patient with the following physician: Objective - Vital Signs Vital signs: Vital Signs Temp 97.6 F 01/30/24 07:23 Pulse 77 01/30/24 07:23 Resp 18 01/30/24 07:23 BP 159/80 01/30/24 07:23 Pulse Ox 96 01/30/24 07:23 FiO2 Intake & Output 01/29/24 01/30/24 01/30/24 18:59 06:59 18:59 Intake Total 400 Output Total 1150 Balance 400 -1150 Intake: Oral 400 Output: Urine 1150 Other: Voiding Method Indwelling Catheter Toilet Urinal # Voids 2 2 - Labs CBC & Chem 7: 01/30/24 02:44 01/30/24 02:44 Labs: Abnormal Lab Results - Last 24 Hours (Table) 01/30/24 01/30/24 Range/Units 02:44 02:44 RBC 2.76 L (4.30-5.90) m/uL Hgb 9.6 L (13.0-17.5) gm/dL Hct 29.9 L (39.0-53.0) % MCV 108.3 H (80.0-100.0) fL RDW 15.7 H (11.5-15.5) % Plt Count 146 L (150-450) k/uL Macrocytosis Marked A Sodium 135 L (137-145) mmol/L Chloride 108 H (98-107) mmol/L Glucose 108 H (74-99) mg/dL
[2024-01-30] MEDS: TAMSULOSIN 0.4 MG CAP.ER.24H PO SCH (14:26)
[2024-01-30] MEDS ORDERED: TAMSULOSIN 0.4 MG CAP.ER.24H PO SCH (21:00)
--- NOTE | 2024-01-31 11:07 | P.PN ---
Subjective Progress Note Date: 01/31/24 Principal diagnosis: Small bowel obstruction Patient had trouble last night with urinary retention. Required straight cath twice. Still having some issues urinating this morning. Some blood. He has been following with urology for this as an outpatient. Patient is passing fl atus. No bowel. He is hungry. Objective - Vital Signs Vital signs: Vital Signs Temp 97.5 F L 01/31/24 07:13 Pulse 69 01/31/24 07:13 Resp 18 01/31/24 07:13 BP 133/74 01/31/24 07:13 Pulse Ox 97 01/31/24 07:13 FiO2 Intake & Output 01/30/24 01/31/24 01/31/24 18:59 06:59 18:59 Output Total 350 1950 Balance -350 -1950 Output: Urine 350 1900 Straight 1700 Post Void Residual 50 Other: # Voids 2 - Exam Abdomen: Soft, nondistended, incision clean and dry - Labs CBC & Chem 7: 01/30/24 02:44 01/30/24 02:44 Assessment and Plan Plan: Patient doing well after recent laparotomy with lysis of adhesions. Advance to low fiber diet. Consult urology for urinary retention issues.
--- NOTE | 2024-01-31 11:37 | P.GSCN ---
History of Present Illness Consult date: 01/31/24 Reason for Consult: Urinary retention History of present illness: 73-year-old male admitted to the hospital with small bowel obstruction status post exploratory laparotomy by Dr. Cabrera Urology is consulted for urinary retention. Patient does have a Mathew catheter placed following his surgery, subsequently was removed and he has been having difficulty voiding, has required CIC x 2 for postvoid residual of 8000 and 900 mL. Does have previous history of urinary retention postcardiac cath. does have history of obstructive urinary symptoms at baseline he is on Flomax daily. He follows up with Dr. Milton as an outpatient, per patient he underwent a cystoscopy that showed evidence of prostatic obstruction and was recommended to undergo surgical intervention for his prostate once it is clear for him to be off of the blood thinners. Review of Systems - Constitutional Denies fever, Denies weight loss - Cardiovascular Denies chest pain, Denies shortness of breath - Respiratory Denies cough, Denies 7 - Gastrointestinal Reports abdominal pain, Denies nausea, Denies vomiting - Genitourinary Denies dysuria, Denies hematuria - Integumentary Denies rash, Denies unusual bruising - Neurological Denies headaches, Denies syncope Past Medical History Past Medical History: Hyperlipidemia, Myocardial Infarction ([place]), Osteoarthritis ([place]) Additional Past Medical History / Comment(s): bowel obs w/necrosis, bowel obs r/t adhesions, WBC LOW (leukopenia) Last Myocardial Infarction Date:: 10/23/23 History of Any Multi-Drug Resistant Organisms: None Reported Past Surgical History: Heart Catheterization With Stent Additional Past Surgical History / Comment(s): steven thumb,steven elbows,steven shoulders,steven inguinal hernia,femoral hernia,hital hernia repair, laparotomy w/ lysis of adhesions, BILAT FOOT SX, COLONOSCOPY, Past Anesthesia/Blood Transfusion Reactions: Postoperative Nausea & Vomiting (PONV) Additional Past Anesthesia/Blood Transfusion Reaction / Comm: no blood transfusion reaction Date of Last Stent Placement:: 10/25/23 Past Psychological History: No Psychological Hx Reported Smoking Status: Never smoker Past Alcohol Use History: Daily Additional Past Alcohol Use History / Comment(s): quit smoking 38 yrs ago, smoked approx 11 yrs 2-2 1/2 ppd. LAST ALCOHOL USE WAS JANUARY Past Drug Use History: None Reported Additional Drug Use History / Comment(s): quit Marijuana once [place] - Past Family History Mother Family Medical History: Cancer, Deep Vein Thrombosis (DVT) Additional Family Medical History / Comment(s): melanoma Father Family Medical History: Cancer Additional Family Medical History / Comment(s): prostate cancer Brother(s) Family Medical History: Cancer Additional Family Medical History / Comment(s): multiple myeloma Medications and Allergies Home Medications Medication Instructions Recorded Confirmed Type Apixaban [Eliquis] 5 mg PO BID #180 tab 11/04/23 01/28/24 Rx Atorvastatin [Lipitor] 40 mg PO DAILY tab 11/04/23 01/28/24 Rx Ezetimibe [Zetia] 10 mg PO DAILY tab 11/04/23 01/28/24 Rx Metoprolol Succinate (ER) [Toprol 50 mg PO DAILY 30 Days #30 tab 11/04/23 01/28/24 Rx XL] Ticagrelor [Brilinta] 90 mg PO BID 30 Days #60 tab 11/04/23 01/28/24 Rx Ferrous Sulfate [Iron] 325 mg PO DAILY 12/09/23 01/28/24 History Tamsulosin HCl [Flomax] 0.4 mg PO HS 01/28/24 01/28/24 History Allergies Allergy/AdvReac Type Severity Reaction Status Date / Time fluoride Allergy Swelling Verified 01/28/24 16:13 in mouth, itching, rash Penicillins Allergy Rash/Hives Verified 01/28/24 16:13 propoxyphene Allergy Itching Verified 01/28/24 16:13 [From Darvocet-N] ibuprofen AdvReac Abdominal Verified 01/28/24 16:13 Pain/gas Surgical - Exam Vital Signs Temp Pulse Resp BP Pulse Ox 98.2 F 66 18 147/81 100 01/27/24 19:39 01/27/24 19:39 01/27/24 19:39 01/27/24 19:39 01/27/24 19:39 - General no distress, no pain - Eyes normal ocular movement, no pale - ENT normal nares, normal mucosa - Respiratory normal expansion, normal respiratory effort - Abdomen Abdomen: soft, non tender, no distended - Psychiatric oriented to time, oriented to person, oriented to place Results - Labs 01/30/24 02:44 01/30/24 02:44 Assessment and Plan Assessment: 73-year-old male history of BPH on Flomax at baseline. Has postoperative urinary retention. Does have previous history of retention. Retention is most likely secondary to his prostatic obstruction, worsened by his recent anesthetic and recent surgery. -Increase Flomax to twice daily -Recommend placing a Mathew catheter, can follow-up as an outpatient in [address] Hancock his urologist
--- NOTE | 2024-01-31 13:21 | P.PN ---
Subjective Progress Note Date: 01/31/24 73 year old M with PMH of CAD post stent placed on 12/16/2023, HTN, HLD, AFib presents to the ED for abdominal pain. Pain started yesterday afternoon around 2:30PM. Reports nausea but no vomiting. In the ED he underwent extensive evaluation. BP 147/81, HR 66, T 98.2F, RR 18, 100% on RA. CBC, Coag panel, CMP significant for RBC 2.2, RBC 3.39, Hg 11.5, Hct 36.1, MCV 106.7, BUN 24, glu 127, ALT 57. Lactic acid 1.0. Mag 2.2. Phos 4.6. EtOH < 10. Lipase and Amylase [address] AP showed closed loop obstruction with 2 focal transition points in the L hemiabdomen likely secondary to volvulus. Cardiology discussed the case with Dr. Cabrera, given his recent stent placement, patient is high risk for cardiac complications. Patient understood the risk and would like to proceed with surgery. Underwent ex lap with lysis of adhesions on 01/27. 01/30 Patient was seen and examined. Difficulty urinating overnight with retention requiring straight cath twice. Passing gas. General: non toxic, no distress, appears at stated age Derm: warm, dry Head: atraumatic, normocephalic, symmetric Eyes: EOMI, no lid lag, anicteric sclera Mouth: no lip lesion, mucus membranes moist Cardiovascular: S1S2 irreg, no murmur Lungs: CTA bilateral, no rhonchi, no rales , no accessory muscle use Ext: no gross muscle atrophy, no edema, no contractures Neuro: no focal neuro deficits Psych: Alert, oriented, appropriate affect Based on my assessment of this patient, this patient meets a high complexity le olamide of care. Bowel obstruction: Possible volvulus. Status post exploratory laparotomy 01/28. Stop Levaquin and Flagyl. Management per Surgery. Urinary retention: Likely due to BPH. Increase Flomax to 0.4 mg PO BID. Insert Mathew catheter. Bladder scan PRN. Consult Urology. CAD post stent placed on 12/16/2023: Brilinta 90 mg PO BID. Eliquis 5 mg PO BID. Above risk for cardiac complication, PNA, renal failure, discharge to SNF, sepsis which was discussed with the patient. He would like to proceed to surgery. Telemetry monitoring post op. Cardiology on board. HTN: Metoprolol 50 mg PO QD. HLD: Zetia 10 mg PO QD. AFib: Metoprolol as above. Eliquis 5 mg PO BID for AC. CODE STATUS: FULL CODE DVT Prophylaxis: Eliquis GI Prophylaxis: Protonix IV Designated medical POA if patient is not able to make medical decisions for themselves: I have reviewed the following behavioral health consultant notes: Surgery. I have reviewed the results of the following tests: I have ordered the following tests: I have discussed the care of this patient with the following independent historian: RN. Mancini. I have independently interpreted the following test below: I have discussed the management of this patient with the following physician: Objective - Vital Signs Vital signs: Vital Signs Temp 97.5 F L 01/31/24 07:13 Pulse 69 01/31/24 07:13 Resp 18 01/31/24 07:13 BP 133/74 01/31/24 07:13 Pulse Ox 97 01/31/24 07:13 FiO2 Intake & Output 01/30/24 01/31/24 01/31/24 18:59 06:59 18:59 Output Total 350 1950 Balance -350 -1950 Output: Urine 350 1900 Straight 1700 Post Void Residual 50 Other: # Voids 2 - Labs CBC & Chem 7: 01/30/24 02:44 01/30/24 02:44
[2024-01-31] MEDS: HYDROcodone/APAP 5-325MG 1 EACH TAB PO PRN (21:03)
[2024-02-01 07:31] VITALS: BP 127/81; PULSE 62; RESP 16; TEMP 98.8
--- NOTE | 2024-02-01 10:39 | P.PN ---
Subjective Progress Note Date: 02/01/24 Principal diagnosis: 73 year old M with PMH of CAD post stent placed on 12/16/2023, HTN, HLD, AFib presents to the ED for abdominal pain. Pain started yesterday afternoon around 2:30PM. Reports nausea but no vomiting. In the ED he underwent extensive evaluation. BP 147/81, HR 66, T 98.2F, RR 18, 100% on RA. CBC, Coag panel, CMP significant for RBC 2.2, RBC 3.39, Hg 11.5, Hct 36.1, MCV 106.7, BUN 24, glu 127, ALT 57. Lactic acid 1.0. Mag 2.2. Phos 4.6. EtOH < 10. Lipase and Amylase [address] AP showed closed loop obstruction with 2 focal transition points in the L hemiabdomen likely secondary to volvulus. Cardiology discussed the case with Dr. Cabrera, given his recent stent placement, patient is high risk for cardiac complications. Patient understood the risk and would like to proceed with surgery. Underwent ex lap with lysis of adhesions on 01/27. noted to be retaining urine and carl catheter was placed and tamsulosin frequency was doubled. 01/31: Patient reports that he is passing flatus. no bowel movement yet. Objective - Vital Signs Vital signs: Vital Signs Temp 98.8 F 02/01/24 07:30 Pulse 62 02/01/24 08:53 Resp 16 02/01/24 08:53 BP 127/81 02/01/24 07:30 Pulse Ox 95 02/01/24 07:30 FiO2 Intake & Output 01/31/24 02/01/24 02/01/24 18:59 06:59 18:59 Output Total 900 2250 Balance -900 -2250 Output: Urine 900 2250 Uretheral (Carl) 800 Other: Voiding Method Indwelling Catheter Indwelling Catheter - Exam General: non toxic, no distress, appears at stated age Derm: warm, dry Head: atraumatic, normocephalic, symmetric Eyes: EOMI, no lid lag, anicteric sclera Mouth: no lip lesion, mucus membranes moist Cardiovascular: S1S2 irreg, no murmur Lungs: CTA bilateral, no rhonchi, no rales , no accessory muscle use Ext: no gross muscle atrophy, no edema, no contractures Neuro: moving all extremtis spontanously Psych: Alert, oriented, appropriate affect abd: vertical surgical dressing seen. soft nontender. - Labs CBC & Chem 7: 01/30/24 02:44 01/30/24 02:44 Assessment and Plan Assessment: Bowel obstruction: Possible volvulus. Status post exploratory laparotomy 01/28. currently on low fat/low fiber diet. passing flatus. awaiting return on bowel function prior to d/c home. Urinary retention: Continue tamsulosin 0.4 mg BID. continue carl catheter placement. will need to see urology outpatient for carl catheter removal and TOV CAD post stent placed on 12/16/2023: Brilinta 90 mg PO BID. Eliquis 5 mg PO BID. Continue telemetry monitoring HTN: Metoprolol 50 mg PO QD. HLD: Zetia 10 mg PO QD. AFib: Metoprolol as above. Eliquis 5 mg PO BID for AC. CODE STATUS: FULL CODE DVT Prophylaxis: Eliquis GI Prophylaxis: Protonix IV Designated medical POA if patient is not able to make medical decisions for themselves: Time with Patient: Greater than 30
--- NOTE | 2024-02-01 13:51 | P.DS ---
Providers Date of admission: 01/27/24 21:26 Expected date of discharge: 02/01/24 Attending physician: Jonny Cabrera Consults: 01/28/24 08:02 Consult Physician Routine Consulting Provider: Puma Ortega Consult Reason/Comments: medical management Do you want consulting provider notified?: Yes 01/31/24 11:05 Consult Physician Routine Consulting Provider: Evan Valero Consult Reason/Comments: Urinary retention Do you want consulting provider notified?: Yes Primary care physician: Orlando Amaya MD Hospital Course: Discharge diagnosis 1. Closed-loop bowel obstruction secondary adhesions 2. Incisional hernia 3. Urinary retention Hospital course This is a 73-year-old male who presented with abdominal pain. Patient had CT scan abdomen pelvis that reported findings highly concerning for closed-loop obstruction with 2 focal transition points in the left hemiabdomen likely secondary to a volvulus and/or internal hernia. Patient is status post exploratory laparotomy, lysis of adhesions, repair of incisional hernia and partial vasectomy. Patient tolerated surgery well. Pain is controlled. He is tolerating diet. He is having flatus. He has been up and ambulating. He is afebrile. He will follow-up with urology in regards to urinary retention and is being discharged with Mathew catheter placed. Patient is stable for discharge. Please refer to chart for further details. Physician Signaling Project Engineer note has been reviewed by physician. Signing provider agrees with the documented findings, assessment, and plan of care. Patient Condition at Discharge: Stable Plan - Discharge Summary Discharge Rx Participant: Yes New Discharge Prescriptions: New HYDROcodone/APAP 5-325MG [[place] 5-325] 1 tab PO Q6HR PRN 3 Days #12 tab PRN Reason: Pain Docusate [Colace] 100 mg PO BID #30 capsule Continue Apixaban [Eliquis] 5 mg PO BID #180 tab Tamsulosin HCl [Flomax] 0.4 mg PO HS Ticagrelor [Brilinta] 90 mg PO BID 30 Days #60 tab Atorvastatin [Lipitor] 40 mg PO DAILY tab Metoprolol Succinate (ER) [Toprol XL] 50 mg PO DAILY 30 Days #30 tab Ezetimibe [Zetia] 10 mg PO DAILY tab Ferrous Sulfate [Iron] 325 mg PO DAILY Discharge Medication List Apixaban [Eliquis] 5 mg PO BID #180 tab 11/04/23 [Rx] Atorvastatin [Lipitor] 40 mg PO DAILY tab 11/04/23 [Rx] Ezetimibe [Zetia] 10 mg PO DAILY tab 11/04/23 [Rx] Metoprolol Succinate (ER) [Toprol XL] 50 mg PO DAILY 30 Days #30 tab 11/04/23 [Rx] Ticagrelor [Brilinta] 90 mg PO BID 30 Days #60 tab 11/04/23 [Rx] Ferrous Sulfate [Iron] 325 mg PO DAILY 12/09/23 [History] Tamsulosin HCl [Flomax] 0.4 mg PO HS 01/28/24 [History] Docusate [Colace] 100 mg PO BID #30 capsule 02/01/24 [Rx] HYDROcodone/APAP 5-325MG [[place] 5-325] 1 tab PO Q6HR PRN 3 Days #12 tab 02/01/24 [Rx] Follow up Appointment(s)/Referral(s): Orlando Amaya MD [Primary Care Provider] - 1-2 days Jonny Cabrera MD [STAFF PHYSICIAN] - 1 Week Activity/Diet/Wound Care/Special Instructions: Follow up outpatient with your urologist No driving while taking [place] No lifting over 10 pounds Shower daily. No soaking or tub baths for 2 weeks Very light activity until you are reevaluated at your follow up appointment with your surgeon Remove incisional dressing in 3 days. Ok to shower with dressing. If dressing becomes saturated ok to remove. Cover incision with gauze if needed. Discharged with Mathew catheter and follow-up with urologist Discharge Disposition: HOME SELF-CARE
== END 2024-02-01 15:06 | disposition home or self-care (01) | DRG 335 ==
LOC: EC 19:34 → 5NMEDONC 21:26 → 6NMEDSUR 22:10 → 3SCARD 01-28 01:23 → 4SSUR 01-28 15:32
PROVIDERS: ADMIT Surgery; ATTEND Surgery
PROC: 0WQF0ZZ Repair Abdominal Wall, Open Approach (ICD-10-PCS; 2024-01-28)
PROC: 0DNA0ZZ Release Jejunum, Open Approach (ICD-10-PCS; principal; 2024-01-28 13:15)
DX: K43.0 Incisional hernia with obstruction, without gangrene (principal); K56.2 Volvulus; K56.50 Intestinal adhesions [bands], unspecified as to partial versus complete obstruction; I25.2 Old myocardial infarction; Z95.5 Presence of coronary angioplasty implant and graft; E78.5 Hyperlipidemia, unspecified; I10 Essential (primary) hypertension; I25.10 Atherosclerotic heart disease of native coronary artery without angina pectoris; I48.0 Paroxysmal atrial fibrillation; N40.1 Benign prostatic hyperplasia with lower urinary tract symptoms; R33.8 Other retention of urine; Z79.02 Long term (current) use of antithrombotics/antiplatelets; Z79.01 Long term (current) use of anticoagulants; Z79.82 Long term (current) use of aspirin; Z79.899 Other long term (current) drug therapy
CPT/HCPCS: 36415; 64999; 74176; 80048; 80053; 80320; 82150; 83605; 83690; 83735; 84100; 85025; 85027; 85610; 86850; 86900; 86901; 88302; 96365; 96366; 96367; 96375; 96376; 99285

== ENCOUNTER → 2024-02-17 | Outpatient (CLI) | payer MEDICARE ==
[2024-02-17 16:19] LABS: Chol/HDL Ratio 2.11 Ratio; VLDL Calculation 11.28 mg/dL (5.00-40.00)
[2024-02-17 16:20] LABS: ALT 37 U/L (10-49); AST 29 U/L (14-35); LDL Cholesterol,Calculated 63.3 mg/dL (0.0-131.0)
== END | disposition home or self-care (01) ==
LOC: LABWHC1 09:03
PROVIDERS: ATTEND Nurse Practitioner Acute Care
DX: E78.2 Mixed hyperlipidemia (principal)
CPT/HCPCS: 36415; 80061; 84450; 84460

== ENCOUNTER 2024-02-29 13:35 | Observation (INO) | payer MEDICARE ==
--- NOTE | 2024-02-29 14:01 | ED ---
Arrhythmia/Palpitations HPI - General Chief Complaint: Arrhythmia/Palpitations Stated Complaint: AFIB Time Seen by Provider: 02/29/24 13:54 Source: patient, RN notes reviewed, old records reviewed Mode of arrival: ambulatory Limitations: no limitations - History of Present Illness Initial Comments: 73-year-old male presents emergency department complaining of shortness of breath dizziness lightheadedness. Patient states that he is folic his hearts been racing the last 24 hours he did follow-up with PCP found to be in A-fib. Patient states he had A-fib post NV a year ago. Patient states that he is on metoprolol, Eliquis, Brilinta. Patient states that he does have some mild discomfort in his chest he recent was diagnosed with strep placed on an tibiotics. - Related Data Home Medications Medication Instructions Recorded Confirmed Ferrous Sulfate [Iron] 325 mg PO DAILY 12/09/23 01/28/24 Previous Rx's Medication Instructions Recorded Apixaban [Eliquis] 5 mg PO BID #180 tab 11/04/23 Atorvastatin [Lipitor] 40 mg PO DAILY tab 11/04/23 Ezetimibe [Zetia] 10 mg PO DAILY tab 11/04/23 Metoprolol Succinate (ER) [Toprol 50 mg PO DAILY 30 Days #30 tab 11/04/23 XL] Ticagrelor [Brilinta] 90 mg PO BID 30 Days #60 tab 11/04/23 Docusate [Colace] 100 mg PO BID #30 capsule 02/01/24 HYDROcodone/APAP 5-325MG [Lynn 1 tab PO Q6HR PRN 3 Days #12 tab 02/01/24 5-325] Tamsulosin [Flomax] 0.4 mg PO BID #60 cap 02/01/24 Allergies Allergy/AdvReac Type Severity Reaction Status Date / Time fluoride Allergy Swelling Verified 01/28/24 16:13 in mouth, itching, rash Penicillins Allergy Rash/Hives Verified 01/28/24 16:13 propoxyphene Allergy Itching Verified 01/28/24 16:13 [From [facility]] ibuprofen AdvReac Abdominal Verified 01/28/24 16:13 Pain/gas Review of Systems ROS Statement: Those systems with pertinent positive or pertinent negative responses have been documented in the HPI. ROS Other: All systems not noted in ROS Statement are negative. Past Medical History Past Medical History: Atrial Fibrillation, Hyperlipidemia, Myocardial Infarction (NV), Osteoarthritis (OA) Additional Past Medical History / Comment(s): bowel obs w/necrosis, bowel obs r/ t adhesions, WBC LOW Last Myocardial Infarction Date:: 10/23/23 History of Any Multi-Drug Resistant Organisms: None Reported Past Surgical History: Heart Catheterization With Stent Additional Past Surgical History / Comment(s): steven thumb,steven elbows,steven shoulders,steven inguinal hernia,femoral hernia,laparotomy w/ lysis of adhesions, BILAT FOOT SX, COLONOSCOPY, Past Anesthesia/Blood Transfusion Reactions: Postoperative Nausea & Vomiting (PONV) Additional Past Anesthesia/Blood Transfusion Reaction / Comment(s): no blood transfusion reaction Date of Last Stent Placement:: 10/25/23 Past Psychological History: No Psychological Hx Reported Smoking Status: Never smoker Past Alcohol Use History: Daily Past Drug Use History: None Reported - Past Family History Mother Family Medical History: Cancer, Deep Vein Thrombosis (DVT) Additional Family Medical History / Comment(s): melanoma Father Family Medical History: Cancer Additional Family Medical History / Comment(s): prostate cancer Brother(s) Family Medical History: Cancer Additional Family Medical History / Comment(s): multiple myeloma General Exam Limitations: no limitations General appearance: alert, in no apparent distress Head exam: Present: atraumatic, normocephalic, normal inspection Eye exam: Present: normal appearance, PERRL, EOMI. Absent: scleral icterus, conjunctival injection, periorbital swelling ENT exam: Present: normal exam, normal oropharynx, mucous membranes moist Neck exam: Present: normal inspection, full ROM. Absent: tenderness, meningismus, lymphadenopathy Respiratory exam: Present: normal lung sounds bilaterally. Absent: respiratory distress, wheezes, rales, rhonchi, stridor Cardiovascular Exam: Present: tachycardia, irregular rhythm, normal heart sounds. Absent: regular rate, normal rhythm, systolic murmur, diastolic murmur, rubs, gallop, clicks GI/Abdominal exam: Present: soft, normal bowel sounds. Absent: distended, tenderness, guarding, rebound, rigid Course Vital Signs 02/29/24 02/29/24 02/29/24 13:38 14:12 14:19 Temperature 97.4 F L 98.2 F Pulse Rate 141 H 117 H Pulse Rate [ 138 H Data Collection Associate ] Respiratory 18 20 Rate Blood Pressure 121/79 104/70 O2 Sat by Pulse 100 99 Oximetry 02/29/24 15:10 Temperature Pulse Rate 85 Pulse Rate [ Data Collection Associate ] Respiratory 18 Rate Blood Pressure 107/69 O2 Sat by Pulse 95 Oximetry EKG Findings - EKG Comments: EKG Findings:: EKG performed at 13: 47 a flutter with RVR rate of 127 QRS 86 QT/QTc 275/350 - EKG Results: EKG: interpreted by LANCE Medical Decision Making - Medical Decision Making Was pt. sent in by a medical professional or institution (, PA, PHYSICAL SCIENCE PROFESSOR, urgent care, hospital, or penitentiary...) When possible be specific @ -PCP Did you speak to anyone other than the patient for history (EMS, parent, family, police, friend...)? What history was obtained from this source @ -No Did you review nursing and triage notes (agree or disagree)? Why? @ -I reviewed and agree with nursing and triage notes Were old charts reviewed (outside hosp., previous admission, EMS record, old EKG, old radiological studies, urgent care reports/EKG's, penitentiary records)? Report findings @ -No old charts were reviewed Differential Diagnosis (chest pain, altered mental status, abdominal pain women, abdominal pain men, vaginal bleeding, weakness, fever, dyspnea, syncope, headache, dizziness, GI bleed, back pain, seizure, CVA, palpatations, mental health, musculoskeletal)? @ -Differential Palpitations Ventricular arrhythmias, atrial arrhythmias, myocardial infarction, anemia, thyrotoxicosis, electrolyte imbalance, hypokalemia, pulmonary embolism, pulmonary disease, drugs, alcohol, anxiety, stress.... This is not meant to be an all-inclusive list. EKG interpreted by me (3pts min.). @ -As above X-rays interpreted by me (1pt min.). @ -Chest x-ray shows no acute cardiopulmonary process. CT interpreted by me (1pt min.). @ -None done U/S interpreted by me (1pt. min.). @ -None done What testing was considered but not performed or refused? (CT, X-rays, U/S, l abs)? Why? @ -None What meds were considered but not given or refused? Why? @ -None Did you discuss the management of the patient with other professionals (professionals i.e. , PA, PHYSICAL SCIENCE PROFESSOR, lab, RT, psych nurse, aids social worker, lithographic press feeder, teacher, civil preparedness training officer, case management manager)? Give summary @ -[facility] physician for admission Was smoking cessation discussed for >3mins.? @ -No Was critical care preformed (if so, how long)? @ -35 minutes Were there social determinants of health that impacted care today? How? (Homelessness, low income, unemployed, alcoholism, drug addiction, transportation, low edu. Level, literacy, decrease access to med. care, detention, rehab)? @ -No Was there de-escalation of care discussed even if they declined (Discuss DNR or withdrawal of care, Hospice)? DNR status @ -No What co-morbidities impacted this encounter? (DM, HTN, Smoking, COPD, CAD, Cancer, CVA, ARF, Chemo, Hep., AIDS, mental health diagnosis, sleep apnea, morbid obesity)? @ -CAD Was patient admitted / discharged? Hospital course, mention meds given and route, prescriptions, significant lab abnormalities, going to OR and other pertinent info. @ -[admitted patient presented for palpitations, tachycardia. Patient found to be in A-fib RVR. Patient was started on Cardizem, given bolus and infusion. Patient's troponin is elevated at this time Undiagnosed new problem with uncertain prognosis? @ -No Drug Therapy requiring intensive monitoring for toxicity (Heparin, Nitro, Insulin, Cardizem)? @ -Cardizem Were any procedures done? @ -No Diagnosis/symptom? @ -A-fib RVR, dyspnea, elevated troponin Acute, or Chronic, or Acute on Chronic? @ -Acute Uncomplicated (without systemic symptoms) or Complicated (systemic symptoms)? @ -Complicated Side effects of treatment? @ -No Exacerbation, Progression, or Severe Exacerbation? @ -No Poses a threat to life or bodily function? How? (Chest pain, USA, NV, pneumonia, PE, COPD, DKA, ARF, appy, cholecystitis, CVA, Diverticulitis, Homicidal, Suicidal, threat to staff... and all critical care pts) @ -Yes ACS, cardiac risks to function - Lab Data Result diagrams: 02/29/24 14:10 02/29/24 14:10 Lab Results 02/29/24 02/29/24 02/29/24 Range/Units 14:10 14:10 14:10 WBC 5.7 (3.8-10.6) k/uL RBC 3.23 L (4.30-5.90) m/uL Hgb 11.1 L (13.0-17.5) gm/dL Hct 34.5 L (39.0-53.0) % MCV 106.8 H (80.0-100.0) fL MCH 34.4 (25.0-35.0) pg MCHC 32.2 (31.0-37.0) g/dL RDW 14.7 (11.5-15.5) % Plt Count 122 L (150-450) k/uL MPV 9.8 Neutrophils % 80 % Lymphocytes % 9 % Monocytes % 5 % Eosinophils % 4 % Basophils % 0 % Neutrophils # 4.6 (1.3-7.7) k/uL Lymphocytes # 0.5 L (1.0-4.8) k/uL Monocytes # 0.3 (0-1.0) k/uL Eosinophils # 0.2 (0-0.7) k/uL Basophils # 0.0 (0-0.2) k/uL Hypochromasia Slight Macrocytosis Moderate PT 10.9 (10.0-12.5) sec INR 1.0 (<1.2) APTT 27.4 (22.0-30.0) sec Sodium 138 (137-145) mmol/L Potassium 4.7 (3.5-5.1) mmol/L Chloride 108 H (98-107) mmol/L Carbon Dioxide 22 (22-30) mmol/L Anion Gap 8 mmol/L BUN 34 H (9-20) mg/dL Creatinine 1.11 (0.66-1.25) mg/dL Est GFR (CKD-EPI)AfAm 76 (>60 ml/min/1.73 sqM) Est GFR (CKD-EPI)NonAf 66 (>60 ml/min/1.73 sqM) Glucose 108 H (74-99) mg/dL Calcium 9.0 (8.4-10.2) mg/dL Magnesium 2.1 (1.6-2.3) mg/dL Total Bilirubin 1.1 (0.2-1.3) mg/dL AST 43 (17-59) U/L ALT 40 (4-49) U/L Alkaline Phosphatase 53 (38-126) U/L Troponin I (0.000-0.034) ng/mL Total Protein 7.5 (6.3-8.2) g/dL Albumin 4.1 (3.5-5.0) g/dL 02/29/24 Range/Units 14:10 WBC (3.8-10.6) k/uL RBC (4.30-5.90) m/uL Hgb (13.0-17.5) gm/dL Hct (39.0-53.0) % MCV (80.0-100.0) fL MCH (25.0-35.0) pg MCHC (31.0-37.0) g/dL RDW (11.5-15.5) % Plt Count (150-450) k/uL MPV Neutrophils % % Lymphocytes % % Monocytes % % Eosinophils % % Basophils % % Neutrophils # (1.3-7.7) k/uL Lymphocytes # (1.0-4.8) k/uL Monocytes # (0-1.0) k/uL Eosinophils # (0-0.7) k/uL Basophils # (0-0.2) k/uL Hypochromasia Macrocytosis PT (10.0-12.5) sec INR (<1.2) APTT (22.0-30.0) sec Sodium (137-145) mmol/L Potassium (3.5-5.1) mmol/L Chloride (98-107) mmol/L Carbon Dioxide (22-30) mmol/L Anion Gap mmol/L BUN (9-20) mg/dL Creatinine (0.66-1.25) mg/dL Est GFR (CKD-EPI)AfAm (>60 ml/min/1.73 sqM) Est GFR (CKD-EPI)NonAf (>60 ml/min/1.73 sqM) Glucose (74-99) mg/dL Calcium (8.4-10.2) mg/dL Magnesium (1.6-2.3) mg/dL Total Bilirubin (0.2-1.3) mg/dL AST (17-59) U/L ALT (4-49) U/L Alkaline Phosphatase (38-126) U/L Troponin I 0.089 H* (0.000-0.034) ng/mL Total Protein (6.3-8.2) g/dL Albumin (3.5-5.0) g/dL Critical Care Time Critical Care Time: Yes Total Critical Care Time: 35 Disposition Clinical Impression: Atrial fibrillation with RVR, Dyspnea, Elevated troponin Disposition: ADMITTED IP TO THIS HOSP Condition: Fair Referrals: Orlando Amaya MD [Primary Care Provider] - 1-2 days Time of Disposition: 15:20
[2024-02-29] MEDS: SODIUM CHLORIDE 0.9% 500 ML 500 ML IV STA (14:19)
[2024-02-29] MEDS: DILTIAZEM 125 MG in SODIUM CHLORIDE 0.9% 100 ML IV SCH (14:20)
[2024-02-29] MEDS: DILTIAZEM DRIP BOLUS FROM BAG 1 MG SOLN IV ONE (14:20)
[2024-02-29 14:34] LABS: Basophils % (A) 0 %; Eosinophils # (A) 0.2 k/uL (0-0.7); Eosinophils % (A) 4 %; HCT 34.5 % (39.0-53.0); HGB 11.1 gm/dL (13.0-17.5); Hypochromasia Slight; Lymphocytes # (A) 0.5 k/uL (1.0-4.8); Lymphocytes % (A) 9 %; MCH 34.4 pg (25.0-35.0); MCHC 32.2 g/dL (31.0-37.0); MCV 106.8 fL (80.0-100.0); Macrocytosis Moderate; Mean Platelet Volume 9.8; Monocytes # (A) 0.3 k/uL (0-1.0); Monocytes % (A) 5 %; Neutrophils # (A) 4.6 k/uL (1.3-7.7); Neutrophils % (A) 80 %; Platelet Count 122 k/uL (150-450); RBC 3.23 m/uL (4.30-5.90); RDW 14.7 % (11.5-15.5); WBC 5.7 k/uL (3.8-10.6)
--- NOTE | 2024-02-29 14:49 | XR ---
EXAMINATION TYPE: XR chest 2V DATE OF EXAM: 02/29/2024 2:41 PM COMPARISON: Chest radiographs from 11/03/2023 CLINICAL INDICATION: Male, 73 years old with history of dysrhythmia; TECHNIQUE: XR chest 2V Frontal and lateral views of the chest. FINDINGS: Lungs/Pleura: There is no evidence of pleural effusion, focal consolidation, or pneumothorax. Pulmonary vascularity: Unremarkable. Heart/mediastinum: Cardiomediastinal silhouette is unremarkable. Musculoskeletal: No acute osseous pathology. IMPRESSION: No acute cardiopulmonary disease/process. [facility], , 02/29/2024 2:47 PM
[2024-02-29 14:55] LABS: Partial Thromboplastin Time 27.4 sec (22.0-30.0); Prothrombin Time 10.9 sec (10.0-12.5)
[2024-02-29 14:56] LABS: ALT 40 U/L (4-49); African American GFR (CKD) 76 (>60 ml/min/1.73 sqM); Anion Gap 8 mmol/L; Blood Urea Nitrogen 34 mg/dL (9-20); Carbon Dioxide 22 mmol/L (22-30); Chloride 108 mmol/L (98-107); Glucose 108 mg/dL (74-99); Non-African American GFR(CKD) 66 (>60 ml/min/1.73 sqM); Sodium 138 mmol/L (137-145); Total Bilirubin 1.1 mg/dL (0.2-1.3)
[2024-02-29 15:13] LABS: AST 43 U/L (17-59); Albumin 4.1 g/dL (3.5-5.0); Alkaline Phosphatase 53 U/L (38-126); Magnesium 2.1 mg/dL (1.6-2.3); Potassium 4.7 mmol/L (3.5-5.1); Total Protein 7.5 g/dL (6.3-8.2)
[2024-02-29] MEDS ORDERED: NITROGLYCERIN SL TABS 0.4 MG TAB SUBLINGUAL PRN (15:21)
--- NOTE | 2024-02-29 18:18 | P.HPIM ---
History of Present Illness H&P Date: 02/29/24 History of Presenting Illness: Patient is a very pleasant 73-year-old male with a past medical history of CAD status post stenting on Brilinta, paroxysmal atrial fibrillation on anticoagulation with Eliquis, hypertension, hyperlipidemia, BPH. He presented to the emergency department secondary to reports of shortness of breath, palpit ations, dizziness and lightheadedness. Patient reports that he was diagnosed with strep throat on Thursday at urgent care center and discharged home with antibiotic. Patient reports the sore throat improved, but on Thursday evening he began noticing that he was having palpitations and increased shortness of breath with any exertion. Patient reports the symptoms progressively worsened and were then accompanied by dizziness and lightheadedness upon standing along with some mild chest discomfort. Patient states the symptoms improve at rest but significantly worsen with any exertion. He denies fevers, chills, headache, changes in vision or hearing, nausea, vomiting, abdominal pain, or experiencing any focal numbness/tingling/weakness/swelling in his extremities. Upon arrival to our facility, patient underwent evaluation in the emergency department. Vital signs upon arrival show blood pressure 121/79, heart rate 141, respiratory rate 18, temp 97.4 F, and SpO2 100% on room air. EKG completed showing atrial fibrillation at 127 bpm with T wave inversion in inferior leads II, 3, aVF as well as V5 and V6. Chest x-ray completed negative for acute cardiopulmonary process. Labs were completed and reviewed. CBC showing bicytopenia with hemoglobin of 11.1 and platelet count of 122. Coagulation profile normal findings. BMP showing hyperchloremia with chloride of 108 and prerenal azotemia with BUN of 34. Blood glucose 108. Magnesium 2.1. Liver profile unremarkable. Troponin was elevated at 0.089. Patient was given Cardizem bolus followed by infusion and admitted under our services with consultation to cardiology. Review of systems: Pertinent positives and negatives as discussed in HPI, a complete review of systems was performed and all other systems are negative. Physical exam: Vital signs reviewed and stable. General: Nontoxic, no distress and appears stated age. Derm: Skin warm and dry, normal coloration for ethnicity. Head: Atraumatic, normocephalic and symmetric. Eyes: EOM's intact, no lid lag, and anicteric sclera Mouth: no lip lesions, mucus membranes moist Cardiovascular irregularly irregular no murmur, positive posterior tibial pulses bilaterally, and cap refill < 2 seconds. Lungs: Respirations even, regular, and unlabored on room air. Lungs CTA bilaterally, no rhonchi, no rales, no wheezing, and no accessory muscle usage. Abdominal: soft, nontender to palpation, no guarding, no appreciable organomegaly Ext: ROM intact. No gross muscle atrophy, no edema, no contractures Neuro: Speech clear, face symmetrical and CN II-XII grossly intact with no noted focal neuro deficits Psych: Alert and oriented to person, place, time, and situation. Appropriate and pleasant affect. Assessment and Plan of Care: Atrial fibrillation/flutter with RVR Elevated troponin Exertional dyspnea, chest pain and palpitations, likely secondary to above Dizziness/lightheadedness, likely secondary to above History of CAD status post stenting, most recently 12/16/2023 Hypertension Hyperlipidemia -Cardiology consulted, appreciate recommendations -Telemetry monitoring -Trend troponins -Continue Cardizem infusion, titrate up to 15 mg/h for goal ventricular rate 80 to 100 bpm. -Cardiac diet, NPO at midnight -Patient to continue cardiac medication regimen with Eliquis 5 mg twice daily, atorvastatin 40 mg daily, Zetia 10 mg daily, metoprolol 50 mg daily, and Brilinta 90 mg twice daily. -TSH with reflex free T4. -Echocardiogram completed 10/29/2023 revealed a preserved EF of 55 to 60% with reports of small pericardial effusion with equal genic area reported to likely represent a clot. Bicytopenia -Likely secondary to daily medication regimen with Brilinta and Eliquis. Will continue to monitor with repeat a.m. labs. BPH -Continue Flomax 0.4 mg twice daily. Data and imaging reviewed: -As stated above in HPI CODE STATUS:Full code DVT prophylaxis: Eliquis Anticipated discharge date: Pending clinical course, likely 24 to [address]: Home Patient was seen independently by Nurse Practitioner. This document was prepared using [employer] dictation software. Please allow for errors in brand planner while rare they do occur. Inderjit Arzola NP rendered care for this patient independently, reviewed the findings and plan as documented in the note above and agree with plan. I did not physically speak with or examine the patient on this date. Past Medical History Past Medical History: Atrial Fibrillation, Hyperlipidemia, Myocardial Infarction ([place]), Osteoarthritis (OA) Additional Past Medical History / Comment(s): bowel obs w/necrosis, bowel obs r/t adhesions, WBC LOW Last Myocardial Infarction Date:: 10/23/23 History of Any Multi-Drug Resistant Organisms: None Reported Past Surgical History: Heart Catheterization With Stent Additional Past Surgical History / Comment(s): steven thumb,steven elbows,steven shoulders,steven inguinal hernia,femoral hernia,laparotomy w/ lysis of adhesions, BILAT FOOT SX, COLONOSCOPY, Past Anesthesia/Blood Transfusion Reactions: Postoperative Nausea & Vomiting (PONV) Additional Past Anesthesia/Blood Transfusion Reaction / Comment(s): no blood transfusion reaction Date of Last Stent Placement:: 10/25/23 Past Psychological History: No Psychological Hx Reported Smoking Status: Never smoker Past Alcohol Use History: Daily Past Drug Use History: None Reported - Past Family History Mother Family Medical History: Cancer, Deep Vein Thrombosis (DVT) Additional Family Medical History / Comment(s): melanoma Father Family Medical History: Cancer Additional Family Medical History / Comment(s): prostate cancer Brother(s) Family Medical History: Cancer Additional Family Medical History / Comment(s): multiple myeloma Medications and Allergies Home Medications Medication Instructions Recorded Confirmed Type Apixaban [Eliquis] 5 mg PO BID #180 tab 11/04/23 02/29/24 Rx Atorvastatin [Lipitor] 40 mg PO DAILY tab 11/04/23 02/29/24 Rx Ezetimibe [Zetia] 10 mg PO DAILY tab 11/04/23 02/29/24 Rx Metoprolol Succinate (ER) [Toprol 50 mg PO DAILY 30 Days #30 tab 11/04/23 02/29/24 Rx XL] Ticagrelor [Brilinta] 90 mg PO BID 30 Days #60 tab 11/04/23 02/29/24 Rx Tamsulosin [Flomax] 0.4 mg PO BID #60 cap 02/01/24 02/29/24 Rx Azithromycin [Zithromax] See Taper PO DAILY 02/29/24 02/29/24 History Allergies Allergy/AdvReac Type Severity Reaction Status Date / Time fluoride Allergy Swelling Verified 02/29/24 16:31 in mouth, itching, rash Penicillins Allergy Rash/Hives Verified 02/29/24 16:31 propoxyphene Allergy Itching Verified 02/29/24 16:31 [From [facility]] ibuprofen AdvReac Abdominal Verified 02/29/24 16:31 Pain/gas Physical Exam Vitals: Vital Signs Temp Pulse Pulse Resp BP Pulse Ox 02/29/24 15:10 85 18 107/69 95 02/29/24 14:19 98.2 F 117 H 20 104/70 99 02/29/24 14:12 138 H 02/29/24 13:38 97.4 F L 141 H 18 121/79 100 Intake and Output 02/29/24 02/29/24 02/29/24 06:59 14:59 22:59 Other: Weight 77.111 kg Results CBC & Chem 7: 02/29/24 14:10 02/29/24 14:10 Labs: Abnormal Lab Results - Last 24 Hours (Table) 02/29/24 02/29/24 02/29/24 Range/Units 14:10 14:10 14:10 RBC 3.23 L (4.30-5.90) m/uL Hgb 11.1 L (13.0-17.5) gm/dL Hct 34.5 L (39.0-53.0) % MCV 106.8 H (80.0-100.0) fL Plt Count 122 L (150-450) k/uL Lymphocytes # 0.5 L (1.0-4.8) k/uL Chloride 108 H (98-107) mmol/L BUN 34 H (9-20) mg/dL Glucose 108 H (74-99) mg/dL Troponin I 0.089 H* (0.000-0.034) ng/mL
[2024-02-29] MEDS: TAMSULOSIN 0.4 MG CAP.ER.24H PO SCH (20:56)
[2024-02-29] MEDS: APIXABAN 5 MG TAB PO SCH (20:57)
[2024-02-29] MEDS: TICAGRELOR 90 MG TAB PO SCH (20:57)
[2024-03-01 07:59] LABS: HCT 32.5 % (39.0-53.0); HGB 10.2 gm/dL (13.0-17.5); Hypochromasia Slight; MCHC 31.5 g/dL (31.0-37.0); MCV 107.7 fL (80.0-100.0); Macrocytosis Marked; Mean Platelet Volume 9.9; Platelet Count 126 k/uL (150-450); RBC 3.02 m/uL (4.30-5.90); RDW 14.9 % (11.5-15.5); WBC 4.2 k/uL (3.8-10.6)
[2024-03-01 08:32] LABS: ALT 31 U/L (4-49); AST 28 U/L (17-59); African American GFR (CKD) >90 (>60 ml/min/1.73 sqM); Albumin 3.3 g/dL (3.5-5.0); Alkaline Phosphatase 68 U/L (38-126); Anion Gap 5 mmol/L; Blood Urea Nitrogen 21 mg/dL (9-20); Calcium 8.6 mg/dL (8.4-10.2); Carbon Dioxide 23 mmol/L (22-30); Chloride 110 mmol/L (98-107); Glucose 97 mg/dL (74-99); Magnesium 1.9 mg/dL (1.6-2.3); Non-African American GFR(CKD) 81 (>60 ml/min/1.73 sqM); Potassium 3.4 mmol/L (3.5-5.1); Sodium 138 mmol/L (137-145); Total Bilirubin 0.7 mg/dL (0.2-1.3); Total Protein 6.1 g/dL (6.3-8.2)
[2024-03-01] MEDS: METOPROLOL SUCCINATE (ER) 50 MG TAB.ER.24H PO SCH (09:38)
[2024-03-01] MEDS: ATORVASTATIN 40 MG TAB PO SCH (09:39)
[2024-03-01] MEDS: EZETIMIBE 10 MG TAB PO SCH (09:40)
[2024-03-01] MEDS: AZITHROMYCIN 500 MG TAB PO SCH (09:41)
--- NOTE | 2024-03-01 10:48 | P.PN ---
Subjective Progress Note Date: 03/01/24 Hospital Course: Patient is a very pleasant 73-year-old male with a past medical history of CAD status post stenting on Brilinta, paroxysmal atrial fibrillation on anticoagulation with Eliquis, hypertension, hyperlipidemia, BPH. He presented to the emergency department secondary to reports of shortness of breath, palpitations, dizziness and lightheadedness. Patient reports that he was diagnosed with strep throat on Thursday at urgent care center and discharged home with antibiotic. Patient reports the sore throat improved, but on Thursday evening he began noticing that he was having palpitations and increased shortness of breath with any exertion. Patient reports the symptoms progressively worsened and were then accompanied by dizziness and lightheadedness upon standing along with some mild chest discomfort. Patient states the symptoms improve at rest but significantly worsen with any exertion. He denies fevers, chills, headache, changes in vision or hearing, nausea, vomiting, abdominal pain, or experiencing any focal numb ness/tingling/weakness/swelling in his extremities. Upon arrival to our facility, patient underwent evaluation in the emergency department. Vital signs upon arrival show blood pressure 121/79, heart rate 141, respiratory rate 18, temp 97.4 F, and SpO2 100% on room air. EKG completed showing atrial fibrillation at 127 bpm with T wave inversion in inferiolateral leads II, III, aVF as well as V5 and V6. Chest x-ray completed negative for acute cardiopulmonary process. Labs were completed and reviewed. CBC showing bicytopenia with hemoglobin of 11.1 and platelet count of 122. Coagulation p rofile normal findings. BMP showing hyperchloremia with chloride of 108 and prerenal azotemia with BUN of 34. Blood glucose 108. Magnesium 2.1. Liver profile unremarkable. Troponin was elevated at 0.089. Patient was given Cardizem bolus followed by infusion and admitted under our services with consultation to cardiology. Troponins were trended resulting at 0.089, 0.078, and 0.077. TSH normal findings at 2.110. Repeat morning EKG completed showing atrial fibrillation with a controlled ventricular rate of 79 bpm with T wave inversion in inferiolateral leads II, III, aVF, and V4 through V6. Physical exam: Patient seen and fully evaluated in the emergency department. He remains in atrial fibrillation with a controlled ventricular rate. Currently patient free from any reports of dizziness/lightheadedness, chest pain, palpitations, or shortness of breath at rest. Discussed with nursing staff, patient to be ambulated up and down the halls with close monitoring of pulse ox and heart rate for further evaluation. Patient's son remains at bedside. Vital signs reviewed and stable. General: Nontoxic, no distress and appears stated age. Derm: Skin warm and dry, normal coloration for ethnicity. Head: Atraumatic, normocephalic and symmetric. Eyes: EOM's intact, no lid lag, and anicteric sclera Mouth: no lip lesions, mucus membranes moist Cardiovascular: irregularly irregular no murmur, positive posterior tibial pulses bilaterally, and cap refill < 2 seconds. Lungs: Respirations even, regular, and unlabored on room air. Lungs CTA bilaterally, no rhonchi, no rales, no wheezing, and no accessory muscle usage. Abdominal: soft, nontender to palpation, no guarding, no appreciable organomegaly Ext: ROM intact. No gross muscle atrophy, no edema, no contractures Neuro: Speech clear, face symmetrical and CN II-XII grossly intact with no noted focal neuro deficits Psych: Alert and oriented to person, place, time, and situation. Appropriate and pleasant affect. Assessment and Plan of Care: Atrial fibrillation/flutter with RVR Elevated troponin Exertional dyspnea, chest pain and palpitations, likely secondary to above Dizziness/lightheadedness, likely secondary to above History of CAD status post stenting, most recently 12/16/2023 Hypertension Hyperlipidemia -Cardiology consulted, appreciate recommendations -Telemetry monitoring -Repeat morning EKG completed showing atrial fibrillation with a controlled ventricular rate of 79 bpm with T wave inversion in inferior lateral leads II, III, aVF, and V4 through V6. -Troponins were trended resulting at 0.089, 0.078, and 0.077. TSH normal findings at 2.110. -Continue Cardizem infusion, titrate up to 15 mg/h for goal ventricular rate 80 to 100 bpm. Ventricular rate currently maintained on 5 mg/h. -Patient to continue cardiac medication regimen with Eliquis 5 mg twice daily, atorvastatin 40 mg daily, Zetia 10 mg daily, metoprolol 50 mg daily, and Brilinta 90 mg twice daily. -Echocardiogram completed 10/29/2023 revealed a preserved EF of 55 to 60% with reports of small pericardial effusion with equal genic area reported to likely represent a clot. Repeat echocardiogram was completed this morning and currently awaiting report. -RN communication order placed and discussed with RN at bedside to ambulate patient in halls to monitor heart rate and SpO2 with ambulation. Bicytopenia -Likely secondary to daily medication regimen with Brilinta and Eliquis. Will continue to monitor with repeat a.m. labs. BPH -Continue Flomax 0.4 mg twice daily. Recent outpatient diagnosis of bronchitis -Patient to complete remaining doses of his Z-Alex. Data and imaging reviewed: -Repeat morning EKG completed showing atrial fibrillation with a controlled ventricular rate of 79 bpm with T wave inversion in inferior lateral leads II, III, aVF, and V4 through V6. -Vital signs reviewed. Blood pressure 115/62, heart rate 82, respiratory rate 18, and SpO2 of 97% on room air. Morning labs reviewed. CBC showing stable bicytopenia with hemoglobin of 10.2 and platelet count of 126. BMP showing hypokalemia with potassium of 3.4, hyperchloremia with chloride of 110, elevated but improved BUN of 21 with creatinine of 0.94 and GFR 81. Magnesium 1.9. Liver profile remains unremarkable.Troponins were trended resulting at 0.089, 0.078, and 0.077. TSH normal findings at 2.110. CODE STATUS:Full code DVT prophylaxis: Eliquis Anticipated discharge date: Pending clinical course, likely 24 to [address]: Home Patient was seen independently by Nurse Practitioner. This document was prepared using [employer] dictation software. Please allow for errors in electrician maintenance while rare they do occur. Inderjit Arzola NP rendered care for this patient independently, reviewed the findings and plan as documented in the note above and agree with plan. I did not physically speak with or examine the patient on this date. Objective - Vital Signs Vital signs: Vital Signs Temp 99.3 F 02/29/24 18:04 Pulse 82 03/01/24 07:39 Resp 18 03/01/24 07:39 BP 115/62 03/01/24 07:39 Pulse Ox 97 03/01/24 07:39 FiO2 Intake & Output 02/29/24 03/01/24 03/01/24 18:59 06:59 18:59 Weight 77.111 kg - Labs CBC & Chem 7: 03/01/24 07:21 03/01/24 07:21 Labs: Abnormal Lab Results - Last 24 Hours (Table) 02/29/24 02/29/24 02/29/24 Range/Units 14:10 14:10 14:10 RBC 3.23 L (4.30-5.90) m/uL Hgb 11.1 L (13.0-17.5) gm/dL Hct 34.5 L (39.0-53.0) % MCV 106.8 H (80.0-100.0) fL Plt Count 122 L (150-450) k/uL Lymphocytes # 0.5 L (1.0-4.8) k/uL Chloride 108 H (98-107) mmol/L BUN 34 H (9-20) mg/dL Glucose 108 H (74-99) mg/dL Troponin I 0.089 H* (0.000-0.034) ng/mL 02/29/24 02/29/24 Range/Units 17:14 20:22 RBC (4.30-5.90) m/uL Hgb (13.0-17.5) gm/dL Hct (39.0-53.0) % MCV (80.0-100.0) fL Plt Count (150-450) k/uL Lymphocytes # (1.0-4.8) k/uL Chloride (98-107) mmol/L BUN (9-20) mg/dL Glucose (74-99) mg/dL Troponin I 0.078 H* 0.077 H* (0.000-0.034) ng/mL
[2024-03-01 11:07] LABS: Chol/HDL Ratio 3.87 Ratio; LDL Cholesterol,Calculated 55.4 mg/dL (0.0-131.0)
[2024-03-01] MEDS: POTASSIUM CHLORIDE ER 20 MEQ TAB.ER PO STA (11:40)
--- NOTE | 2024-03-01 13:47 | CA ---
Transthoracic Echo Report Name: Hiro Lin Age: 73 Gender: M : 1950 Exam Date: 03/01/2024 07:55 Exam Location: [facility] Ht (in): 72 Wt (lb): 170 Ordering Physician: Inderjit Arzola Attending/Referring Phys: Manufacturing Engineering Technologist Gita Hoffman RDCS Procedure CPT: Indications: afib RVR, elevated trop, hx of pericardial effusio Cardiac Hx: Technical Quality: Fair Contrast 1: Total Dose (mL): Contrast 2: Total Dose (mL): MEASUREMENTS (Male / Female) Normal Values 2D ECHO LV Diastolic Diameter PLAX 4.4 cm 4.2 - 5.9 / 3.9 - 5.3 cm LV Systolic Diameter PLAX 2.7 cm IVS Diastolic Thickness 1.0 cm 0.6 - 1.0 / 0.6 - 0.9 cm LVPW Diastolic Thickness 1.1 cm 0.6 - 1.0 / 0.6 - 0.9 cm LV Relative Wall Thickness 0.5 RV Internal Dim ED PLAX 1.3 cm LA Systolic Diameter LX 4.1 cm 3.0 - 4.0 / 2.7 - 3.8 cm LV Diastolic Volume MOD BP 72.7 cm??? 67 - 155 / 56 - 104 cm??? LV Systolic Volume MOD BP 25.6 cm??? - 58 / 19 - 49 cm??? LV Ejection Fraction MOD BP 64.8 % >= 55 % LV Cardiac Index MOD BP 2070.0 cm???/min???m??? LV Diastolic Volume MOD 4C 73.2 cm??? LV Systolic Volume MOD 4C 24.7 cm??? LV Ejection Fraction MOD 4C 66.2 % LV Cardiac Index MOD 4C 2127.9 cm???/min???m??? LV Diastolic Length 4C 7.4 cm LV Systolic Length 4C 5.9 cm LV Diastolic Volume MOD 2C 71.1 cm??? LV Systolic Volume MOD 2C 25.2 cm??? LV Ejection Fraction MOD 2C 64.6 % LV Cardiac Index MOD 2C 2019.4 cm???/min???m??? LV Diastolic Length 2C 7.6 cm LV Systolic Length 2C 6.2 cm LA Volume 43.7 cm??? 18 - 58 / 22 - 52 cm??? LA Volume Index 22.1 cm???/m??? 16 - 28 cm???/m??? M-MODE Aortic Root Diameter MM 3.9 cm LA Systolic Diameter MM 3.9 cm LA Ao Ratio MM 1.0 AV Cusp Separation MM 2.3 cm FINDINGS Left Ventricle Left ventricular ejection fraction is estimated at 55-60 %. Left ventricular cavity size normal. Normal left ventricular systolic function with no obvious regional wall motion abnormalities. Right Ventricle Mild right ventricular dilatation. Right Atrium Mild right atrial dilatation. Left Atrium Mild left atrial dilatation. Mitral Valve Aortic Valve Tricuspid Valve Pulmonic Valve Pericardium No pericardial or pleural effusion. Aorta Mild aortic dilatation at the level of the sinuses of valsalva (root) 3.9cm. CONCLUSIONS Preserved LV size and function Mild RV enlargement Previewed by: Dr. Michael Adhikari MD (Electronically Signed) Final Date: 01 March 2024 13:47
[2024-03-01 14:09] VITALS: RESP 17
[2024-03-01] MEDS ORDERED: DILTIAZEM ORAL 30 MG TAB PO PRN (16:15)
[2024-03-01 16:37] VITALS: BP 112/70; PULSE 81; TEMP 97.7
--- NOTE | 2024-03-01 23:07 | P.CRDCN ---
History of Present Illness Consult date: 03/01/24 History of present illness: HISTORY OF PRESENTING ILLNESS 73-year-old with PMH of CAD status post PCI in December 2023, paroxysmal atrial fibrillation on anticoagulation, dyslipidemia. 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 Patient was diagnosed with strep throat on Thursday. For last 3 to 4 days he has been having increased shortness of breath and symptoms of palpitation along with lightheadedness. By the evening on Thursday, patient started having more palpitations and shortness of breath. For this he was presented to the ER. On admission to the ER he was noticed to be in atrial fibrillation with RVR with heart rate 127 bpm, nonspecific T wave inversions in inferolateral leads. Today at the time of evaluation he was in sinus rhythm. ECG repeated during sinus rhythm shows persistent T wave inversions in 2 3 aVF V5 and V6. This is somewhat similar when compared to EKG from January Social Hx: Family Hx: non contributary to current clinical scenario REVIEW OF SYSTEMS 14 point review of system is negative except what is mentioned above in HPI. PHYSICAL EXAMINATION Neck: Brisk carotid upstroke, no jugular venous distention. Lungs: Clear to auscultation. Heart: Regular rate and rhythm, S1-S2, no S3, no murmur or rub. Abdomen: Soft nontender, positive bowel sounds. Extremities: No edema, intact distal pulses. Neuro: Alert, oritented, no focal deficits. Detailed neuro exam was not performed. ASSESSMENT A-fib RVR, converted with Cardizem drip Mildly elevated troponin with a flat pattern, likely related to A-fib RVR. CAD status post PCI 12/2023, IKE to OM1, residual disease in LAD 40% and RCA 40%. Lightheadedness and dizziness and exertional shortness of breath, likely related to A-fib. Mildly dilated aortic root Limited echo during this admission shows EF 55 to 60%, no obvious regional wall motion abnormality, aortic root 3.9 cm. PLAN Continue Brilinta 90 mg twice daily, Eliquis 5 mg twice daily Lipitor 40 mg daily Continue metoprolol succinate 50 mg daily. I would add Cardizem 90 mg to be used as needed if patient has symptoms of palpitations or generalized weakness. I have given him instructions how to do so. He can repeat this Cardizem 2 times in a day if needed. If his symptoms do not get worse or if you feels more lightheaded dizzy, I I have recommended him to come to the ER. Because of recurrent relapses of A-fib on appropriate medical regimen, I would recommend consideration for A-fib ablation. If there are any other reversible causes of A-fib they should be addressed. He reports that he has not drank since December 2023. Patient is cleared to be discharged from cardiac standpoint as he is symptom- free and is in sinus rhythm at this time. He ambulated in the unit without any relapse into A-fib. Ravinder Cornejo MD, FACC, RPVI Thank you for allowing [facility] to participate in this patient's care. Feel free to reach out in case of any followup questions. Past Medical History Past Medical History: Atrial Fibrillation, Hyperlipidemia, Myocardial Infarction (ID), Osteoarthritis (OA) Additional Past Medical History / Comment(s): bowel obs w/necrosis, bowel obs r/t adhesions, WBC LOW Last Myocardial Infarction Date:: 10/23/23 History of Any Multi-Drug Resistant Organisms: None Reported Past Surgical History: Back Surgery, Heart Catheterization With Stent Additional Past Surgical History / Comment(s): steven thumb,steven elbows,steven shoulders,steven inguinal hernia,femoral hernia,laparotomy w/ lysis of adhesions, BILAT FOOT SX, COLONOSCOPY, back surgery- fusion of vertebrae*2021-Dr. Paulson. Oct multiple stents/ December 2023 stent to OM Past Anesthesia/Blood Transfusion Reactions: Postoperative Nausea & Vomiting (PONV) Additional Past Anesthesia/Blood Transfusion Reaction / Comment(s): no blood transfusion reaction Date of Last Stent Placement:: 12/16/2023 Smoking Status: Former smoker - Past Family History Mother Family Medical History: Cancer, Deep Vein Thrombosis (DVT) Additional Family Medical History / Comment(s): melanoma Father Family Medical History: Cancer Additional Family Medical History / Comment(s): prostate cancer Brother(s) Family Medical History: Cancer Additional Family Medical History / Comment(s): multiple myeloma Medications and Allergies Home Medications Medication Instructions Recorded Confirmed Type Apixaban [Eliquis] 5 mg PO BID #180 tab 11/04/23 02/29/24 Rx Atorvastatin [Lipitor] 40 mg PO DAILY tab 11/04/23 02/29/24 Rx Ezetimibe [Zetia] 10 mg PO DAILY tab 11/04/23 02/29/24 Rx Metoprolol Succinate (ER) [Toprol 50 mg PO DAILY 30 Days #30 tab 11/04/23 02/29/24 Rx XL] Ticagrelor [Brilinta] 90 mg PO BID 30 Days #60 tab 11/04/23 02/29/24 Rx Tamsulosin [Flomax] 0.4 mg PO BID #60 cap 02/01/24 02/29/24 Rx Azithromycin [Zithromax Z Pack] See Taper PO DAILY 02/29/24 02/29/24 History Diltiazem Oral [Cardizem Oral] 90 mg PO BID PRN #60 tab 03/01/24 Rx Allergies Allergy/AdvReac Type Severity Reaction Status Date / Time fluoride Allergy Swelling Verified 02/29/24 16:31 in mouth, itching, rash Penicillins Allergy Rash/Hives Verified 02/29/24 16:31 propoxyphene Allergy Itching Verified 02/29/24 16:31 [From Stella] ibuprofen AdvReac Abdominal Verified 02/29/24 16:31 Pain/gas Physical Exam Vitals: Vital Signs Temp Pulse Pulse Resp BP BP Pulse Ox 03/01/24 16:20 97.7 F 81 17 112/70 97 03/01/24 13:36 17 03/01/24 11:54 74 17 03/01/24 11:53 97.6 F 74 17 113/72 100 03/01/24 11:43 75 15 104/66 99 03/01/24 07:39 82 18 115/62 97 03/01/24 06:29 77 16 113/58 97 03/01/24 05:37 66 18 95/55 96 03/01/24 03:07 80 16 95/59 96 03/01/24 02:04 71 18 90/60 95 03/01/24 01:02 78 18 95/45 96 Intake and Output 03/01/24 03/01/24 03/02/24 14:59 22:59 06:59 Intake Total 416.917 Output Total 200 Balance 416.917 -200 Intake: IV 10 Invasive Line 1 10 Intake, IV Titration 106.917 Amount Diltiazem 125 mg In 106.917 Sodium Chloride 0.9% 100 ml @ 5 MG/HR 5 mls/hr IV .Q24H [facility] Rx#:[id number] Oral 300 Output: Urine 200 Other: Voiding Method Toilet Urinal Results 03/01/24 07:21 03/01/24 07:21 Cardiac Enzymes 03/01/24 Range/Units 07:21 AST 28 (17-59) U/L Lipids 03/01/24 Range/Units 07:21 Triglycerides 142.00 (0.00-149.00) mg/dL Cholesterol 113.00 (0.00-200.00) mg/dL HDL Cholesterol 29.20 L (40.00-60.00) mg/dL Cholesterol/HDL Ratio 3.87 Ratio CBC 03/01/24 Range/Units 07:21 WBC 4.2 (3.8-10.6) k/uL RBC 3.02 L (4.30-5.90) m/uL Hgb 10.2 L (13.0-17.5) gm/dL Hct 32.5 L (39.0-53.0) % Plt Count 126 L (150-450) k/uL Comprehensive Metabolic Panel 03/01/24 Range/Units 07:21 Sodium 138 (137-145) mmol/L Potassium 3.4 L (3.5-5.1) mmol/L Chloride 110 H (98-107) mmol/L Carbon Dioxide 23 (22-30) mmol/L BUN 21 H (9-20) mg/dL Creatinine 0.94 (0.66-1.25) mg/dL Glucose 97 (74-99) mg/dL Calcium 8.6 (8.4-10.2) mg/dL AST 28 (17-59) U/L ALT 31 (4-49) U/L Alkaline Phosphatase 68 (38-126) U/L Total Protein 6.1 L (6.3-8.2) g/dL Albumin 3.3 L (3.5-5.0) g/dL Intake and Output 03/01/24 03/01/24 03/02/24 14:59 22:59 06:59 Intake Total 416.917 Output Total 200 Balance 416.917 -200 Intake: IV 10 Invasive Line 1 10 Intake, IV Titration 106.917 Amount Diltiazem 125 mg In 106.917 Sodium Chloride 0.9% 100 ml @ 5 MG/HR 5 mls/hr IV .Q24H [facility] Rx#:[id number] Oral 300 Output: Urine 200 Other: Voiding Method Toilet Urinal 03/01/24 07:21 03/01/24 07:21
--- NOTE | 2024-03-02 07:53 | P.DS ---
Providers Date of admission: 02/29/24 15:24 Expected date of discharge: 03/01/24 Attending physician: Puma Ortega Consults: 02/29/24 15:21 Consult Physician Urgent Consulting Provider: Ravinder Cornejo Consult Reason/Comments: A-fib RVR Do you want consulting provider notified?: Yes Primary care physician: Orlando Amaya MD Hospital Course: Discharge Diagnosis: Atrial fibrillation/flutter with RVR. Patient converted to normal sinus rhythm. Some symptoms of exertional dyspnea, chest pain, palpitations, and dizziness resolved after control of heart rate and conversion to normal sinus mechanism. Troponins were trended and down trended 0.089, 0.078, and 0.077. TSH was normal findings at 2.110. Cardiology evaluated and clearing patient from cardiac perspective for discharge recommending discharging patient home with Cardizem 90 mg twice daily to be used only as needed for elevated heart rate. Instructions were discussed with patient on how to use in detail by residential appraiser. Patient cleared from cardiac perspective and medically optimized for discharge at this time. Patient to follow-up outpatient with PCP and residential appraiser. Elevated troponin. Secondary to A-fib RVR. Troponins were trended and down trended 0.089, 0.078, and 0.077. Exertional dyspnea, chest pain and palpitations. Secondary to above and resolved with control of heart rate and conversion to normal sinus rhythm. Dizziness/lightheadedness. Secondary to above and resolved with control of heart rate and conversion to normal sinus rhythm. History of CAD status post stenting, most recently 12/16/2023. Patient to continue cardiac medication regimen with Eliquis 5 mg twice daily, atorvastatin 40 mg daily, Zetia 10 mg daily, metoprolol 50 mg daily, and Brilinta 90 mg twice daily. Hypertension. Continue daily medication regimen with metoprolol 50 mg daily. Hyperlipidemia. Continue daily medication regimen with atorvastatin 40 mg daily and Zetia 10 mg daily. 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 BPH. Continue Flomax 0.4 mg twice daily. Recent outpatient diagnosis of bronchitis. Patient to complete remaining doses of his Z-Alex. Hospital Course: Patient is a very pleasant 73-year-old male with a past medical history of CAD status post stenting on Brilinta, paroxysmal atrial fibrillation on anticoagulation with Eliquis, hypertension, hyperlipidemia, BPH. He presented to the emergency department secondary to reports of shortness of breath, palpitations, dizziness and lightheadedness. Patient reports that he was diagnosed with strep throat on Thursday at urgent care center and discharged home with antibiotic. Patient reports the sore throat improved, but on Thursday evening he began noticing that he was having palpitations and increased shortness of breath with any exertion. Patient reports the symptoms progressively worsened and were then accompanied by dizziness and lightheadedness upon standing along with some mild chest discomfort. Patient states the symptoms improve at rest but significantly worsen with any exertion. He denies fevers, chills, headache, changes in vision or hearing, nausea, vomiting, abdominal pain, or experiencing any focal numbness/tingling/weakness/swelling in his extremities. Upon arrival to our facility, patient underwent evaluation in the emergency department. Vital signs upon arrival show blood pressure 121/79, heart rate 141, respiratory rate 18, temp 97.4 F, and SpO2 100% on room air. EKG completed showing atrial fibrillation at 127 bpm with T wave inversion in inferiolateral leads II, III, aVF as well as V5 and V6. Chest x-ray completed negative for acute cardiopulm onary process. Labs were completed and reviewed. CBC showing bicytopenia with hemoglobin of 11.1 and platelet count of 122. Coagulation profile normal findings. BMP showing hyperchloremia with chloride of 108 and prerenal azotemia with BUN of 34. Blood glucose 108. Magnesium 2.1. Liver profile unremarkable. Troponin was elevated at 0.089. Patient was given Cardizem bolus followed by infusion and admitted under our services with consultation to cardiology. Troponins were trended resulting at 0.089, 0.078, and 0.077. TSH normal findings at 2.110. Repeat morning EKG completed showing atrial fibrillation with a controlled ventricular rate of 79 bpm with T wave inversion in inferiolateral leads II, III, aVF, and V4 through V6. Patient monitored throughout the day later converting to normal sinus mechanism with heart rate of 75 bpm and a first-degree AV block with LA interval of 213 ms unchanged T wave inversion in leads II, III, aVF and V5 and V6 (T wave inversion in lead V4 resolved), . Since controlling rate in patient converting to normal sinus rhythm all symptoms of dizziness/lightheadedness, chest pain and exertional shortness of breath resolved. Patient was ambulated throughout unit with no further episodes of exertional tachycardia or shortness of breath. Patient's heart rate was documented staying between 80s to 90s throughout ambulation. Patient was cleared from cardiac standpoint for discharge medically optimized for discharge home at this time. Patient discharged home with prescription for Cardizem 90 mg twice daily as needed for elevated heart rate per recommendations from residential appraiser. Patient to follow-up outpatient with PCP within the next week secondary to holiday and with cardiology in 1 to 2 weeks. Patient instructed to return to the emergency department if symptoms of dizziness/lightheadedness return. Physical exam: Please see progress note written earlier today to review full physical exam. A total of 33 minutes of time were spent preparing this complex discharge summary. Pt was discharged on 03/01/2024 at 6:20 PM. Patient was seen independently by Nurse Practitioner. This document was prepared using [employer] dictation software. Please allow for errors in inspector metal can while rare they do occur. Inderjit Arzola NP rendered care for this patient independently, reviewed the findings and plan as documented in the note above. I did not physically speak with or examine the patient on this date. Patient Condition at Discharge: Stable Plan - Discharge Summary Discharge Rx Participant: No New Discharge Prescriptions: New Diltiazem Oral [Cardizem Oral] 90 mg PO BID PRN #60 tab PRN Reason: Heart Rate - High Continue Apixaban [Eliquis] 5 mg PO BID #180 tab Azithromycin [Zithromax Z Pack] See Taper PO DAILY Ticagrelor [Brilinta] 90 mg PO BID 30 Days #60 tab Atorvastatin [Lipitor] 40 mg PO DAILY tab Metoprolol Succinate (ER) [Toprol XL] 50 mg PO DAILY 30 Days #30 tab Ezetimibe [Zetia] 10 mg PO DAILY tab Tamsulosin [Flomax] 0.4 mg PO BID #60 cap Discharge Medication List Apixaban [Eliquis] 5 mg PO BID #180 tab 11/04/23 [Rx] Atorvastatin [Lipitor] 40 mg PO DAILY tab 11/04/23 [Rx] Ezetimibe [Zetia] 10 mg PO DAILY tab 11/04/23 [Rx] Metoprolol Succinate (ER) [Toprol XL] 50 mg PO DAILY 30 Days #30 tab 08/28/24 [Rx] Ticagrelor [Brilinta] 90 mg PO BID 30 Days #60 tab 11/04/23 [Rx] Tamsulosin [Flomax] 0.4 mg PO BID #60 cap 02/01/24 [Rx] Azithromycin [Zithromax Z Pack] See Taper PO DAILY 02/29/24 [History] Diltiazem Oral [Cardizem Oral] 90 mg PO BID PRN #60 tab 03/01/24 [Rx] Follow up Appointment(s)/Referral(s): Ravinder Cornejo MD [Medical Doctor] - 1 Week Orlando Amaya MD [Primary Care Provider] - 1-2 days Patient Instructions/Handouts: A-fib (Atrial Fibrillation) (DC), High Troponin Levels (ED) Activity/Diet/Wound Care/Special Instructions: Please see PCP and cardiology. Discharge Disposition: HOME SELF-CARE
[2024-03-02] MEDS ORDERED: METOPROLOL SUCCINATE (ER) 50 MG TAB.ER.24H PO SCH (09:00)
[2024-03-02] MEDS ORDERED: METOPROLOL SUCCINATE (ER) 25 MG TAB.ER.24H PO SCH (09:00)
== END 2024-03-01 18:43 | disposition home or self-care (01) ==
LOC: EC 13:35 → 3SCARD 15:24
PROVIDERS: ADMIT Student in an Organized Health Care Education/Training Program; ATTEND Student in an Organized Health Care Education/Training Program
DX: I48.0 Paroxysmal atrial fibrillation (principal); I48.92 Unspecified atrial flutter; R79.89 Other specified abnormal findings of blood chemistry; E87.8 Other disorders of electrolyte and fluid balance, not elsewhere classified; I10 Essential (primary) hypertension; I25.10 Atherosclerotic heart disease of native coronary artery without angina pectoris; I25.2 Old myocardial infarction; I44.0 Atrioventricular block, first degree; E78.5 Hyperlipidemia, unspecified; N40.0 Benign prostatic hyperplasia without lower urinary tract symptoms; Z79.899 Other long term (current) drug therapy; Z79.01 Long term (current) use of anticoagulants; Z79.02 Long term (current) use of antithrombotics/antiplatelets; Z87.891 Personal history of nicotine dependence; Z95.5 Presence of coronary angioplasty implant and graft
CPT/HCPCS: 96365; 96366 ×2; 99291; 36415; 93005 ×2; 93308; 80061; 80053 ×2; 84443; 83735 ×2; 84484; 85025; 85027; 85610; 85730; 71046; G0378 ×2

== ENCOUNTER → 2024-08-17 | Outpatient (CLI) | payer MEDICARE ==
[2024-08-17 22:40] LABS: Anti-Smith Ab Interp Negative (Negative); JO-1 IgG Antibody <0.2 AI
== END | disposition home or self-care (01) ==
LOC: LABWHC1 14:12
PROVIDERS: ATTEND Physician Assistant Medical
DX: L30.9 Dermatitis, unspecified (principal); M33.12 Other dermatomyositis with myopathy
CPT/HCPCS: 36415; 82088; 82550; 85652; 86038; 86235; 87522